=== PATIENT | female | born 1960 | race Caucasian/White ===

== ENCOUNTER 2018-07-20 08:35 | Observation (INO) ==
[2018-07-20] MEDS ORDERED: 0.9 % Sodium Chloride 1,000 ML IVC ONE ×2 (09:22→10:54)
[2018-07-20] MEDS ORDERED: Ondansetron 4 MG/2 ML VIAL IVP ONE ×2 (09:26→10:59)
--- NOTE | 2018-07-20 09:29 | Emergency Department Note ---
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 She recently started a round of chemoteraphy last wednesday receiving therapy M-F every morning. This wednesday started having N/V and abdominal pain. Has not been able to keep down oral solids or liquids. Vomittus is clear yelllow to biliious. Patient states she has been stoolling every morning and is on a stool softener, however she feels bloated with abdominal pain in the RLQ and LLQ. Pain is a 7/10 with palpation, 3/10 at baseline. She spoke to her oncologist on wednesday and they recommended if symptoms worsen she should go to ED. - Related Data Home Medications Medication Instructions Recorded Confirmed Gabapentin [Neurontin] 300 mg PO TID 06/14/18 07/14/18 Nabumetone [Relafen] 500 mg PO DAILY 06/14/18 07/14/18 Omeprazole [PriLOSEC] 20 mg PO DAILY 06/14/18 07/14/18 Tizanidine HCl [Zanaflex] 4 mg PO HS 06/14/18 07/14/18 Capecitabine [Xeloda] 1,500 mg PO BID 07/06/18 07/14/18 Celecoxib [Celebrex] 100 mg PO QDPC 07/06/18 07/14/18 Ergocalciferol (VITAMIN D2) 50,000 unit PO ARAUZ 07/06/18 07/14/18 [Vitamin D2] Previous Rx's Medication Instructions Recorded HYDROcodone/Acet 5/325 mg [[place] 1 - 2 tab PO Q6H PRN 14 Days #120 06/14/18 5-325 mg] tab Promethazine [Phenergan] 25 mg PO Q6HR PRN #30 tablet 06/14/18 Allergies Allergy/AdvReac Type Severity Reaction Status Date / Time No Known Allergies Allergy Verified 07/20/18 08:39 Constitutional: Reports: chills. Denies: fever, weakness, night sweats Cardiovascular: Denies: chest pain, palpitations, dyspnea on exertion Respiratory: Denies: cough, dyspnea Gastrointestinal: Reports: abdominal pain. Denies: nausea, vomiting, diarrhea Genitourinary: Denies: urgency, dysuria, frequency Neurological: Denies: headache, weakness Past Medical History - Past Medical History Medical history: Reports: arthritis, cancer, GERD Surgical history: Reports: , cholecystectomy Psychiatric history: Reports: no psych history - Social History Smoking Status: Never smoker Smokeless Tobacco Status: No Alcohol use: Reports: none Drug use: Reports: none Physical Exam - General Limitations: no limitations General appearance: alert, in no apparent distress - Head Head exam: atraumatic, normocephalic - Chest Chest inspection: Present: normal inspection, symmetric chest wall rise - Respiratory Respiratory exam: Present: normal lung sounds bilaterally, respiratory distress - Cardiovascular Cardiovascular exam: Present: regular rate, normal rhythm, normal heart sounds - Abdominal Exam Abdominal exam: Present: tenderness, distention, normal bowel sounds. Absent: guarding, rebound, rigidity Abdominal tenderness: Present: RLQ, LUQ, mild, moderate (7/10 with palpation 3/ 10 at baseline) - Neurological Exam Neurological exam: Present: alert, oriented X3 - Psychiatric Psychiatric exam: Present: normal affect, normal mood Course Course Narrative: 57 YO F presenting with N/V and dehydration since Wednesday. - Zofrran given for nausea - Concerned for partial SBO given bloating + rectal CA history - ordered CT AB with IV contrast. Patient states she cannot tolerate PO contrast. - Basic labs ordered: CBC, CMP, - Reevaluation(s) Reevaluation #1: Abdominal CT with IV contrast neg for SBO. Spoke with patient and she is still nauseaus. She would like to be admitted for care of her dehydration and N/V. Will speak with oncologist to see what they recommend. - Gave patient another 4mg of zofran. Reevaluation #2: Spoke with oncology and they have no further recs. They are okay to follow her inpatient. Spoke with hospitalist and she will be admitted with dehydration and intractable N/V. Vital Signs Temperature 98.0 F 07/20/18 08:36 Pulse Rate 94 07/20/18 08:36 Respiratory Rate 18 07/20/18 08:36 Blood Pressure 143/92 07/20/18 08:36 O2 Sat by Pulse Oximetry 100 07/20/18 08:36 Temperature 98.0 F 07/20/18 08:44 Pulse Rate 82 07/20/18 11:11 Respiratory Rate 16 07/20/18 11:11 Blood Pressure 138/74 07/20/18 11:11 O2 Sat by Pulse Oximetry 100 07/20/18 11:11 Oxygen Delivery Oxygen Delivery Room Air Nausea/Vomiting/Diarrhea - Lab Data Result diagrams: 07/20/18 08:49 07/20/18 08:49 Lab Results 07/20/18 07/20/18 Range/Units 08:49 08:49 WBC 6.9 (4.3-11.1) K/mcL RBC 5.03 H (3.82-4.97) M/mcL Hgb 12.7 (11.5-15.4) g/dL Hct 39.1 (35.3-44.9) % MCV 77.7 L (83.0-100.0) fL MCH 25.2 L (28.0-33.3) pg MCHC 32.5 (31.6-35.5) g/dL RDW 18.2 H (11.5-14.5) % Plt Count 274 (140-400) K/mcL MPV 9.6 (9.4-12.4) fL Immature Gran % 0.4 (0-4) % Seg Neutrophils % 87.3 % Lymphocytes % 2.6 % Monocytes % 8.4 % Eosinophils % 1.2 % Basophils % 0.1 % Neutrophils # 6.0 (1.6-8.9) K/mcL Lymphocytes # 0.2 L (0.6-4.6) K/mcL Monocytes # 0.6 (0.0-1.3) K/mcL Eosinophils # 0.1 (0.0-0.6) K/mcL Basophils # 0.0 (0.0-0.2) K/mcL Platelet Estimate Normal (Normal) Sodium 135 L (136-145) mEq/L Potassium 3.2 L (3.5-5.1) mEq/L Chloride 97 L (98-107) mEq/L Carbon Dioxide 28 (23-29) mEq/L BUN 8 (6-20) mg/dL Creatinine 0.51 L (0.60-1.20) mg/dL Est GFR ( Amer) > 60 (> 60) Est GFR (Non-Af Amer) > 60 (> 60) BUN/Creatinine Ratio 16 (6-26) Glucose 123 H (70-105) mg/dL Calculated Osmolality 280 (280-300) Calcium 9.5 (8.6-10.3) mg/dL Total Bilirubin 0.7 (0.3-1.0) mg/dL AST 13 (13-39) Units/L ALT 9 (7-52) Units/L Alkaline Phosphatase 95 (34-104) Units/L Troponin I < 0.03 (< 0.04) ng/mL Serum Total Protein 7.3 (6.4-8.9) g/dL Albumin 4.1 (3.5-5.7) g/dL Globulin 3.2 (2.4-3.5) g/dL Albumin/Globulin Ratio 1.3 (1.1-2.2) Lipase 9 L (11-82) Units/L
[2018-07-20 09:42] LABS: Basophils % 0.1 %; Eosinophils # 0.1 K/mcL (0.0-0.6); Eosinophils % 1.2 %; Hematocrit 39.1 % (35.3-44.9); Hemoglobin 12.7 g/dL (11.5-15.4); Immature Granulocytes % 0.4 % (0-4); Lymphocytes # 0.2 K/mcL (0.6-4.6); Lymphocytes % 2.6 %; Mean Corpuscular HGB Conc 32.5 g/dL (31.6-35.5); Mean Corpuscular Hemoglobin 25.2 pg (28.0-33.3); Mean Corpuscular Volume 77.7 fL (83.0-100.0); Mean Platelet Volume 9.6 fL (9.4-12.4); Monocytes # 0.6 K/mcL (0.0-1.3); Monocytes % 8.4 %; Platelet Count 274 K/mcL (140-400); Red Blood Count 5.03 M/mcL (3.82-4.97); Red Cell Distribution Width 18.2 % (11.5-14.5); Segmented Neutrophils % 87.3 %
[2018-07-20] MEDS ORDERED: Isovue-370 500 ML INFUS..BTL IV ONE ×2 (09:45→09:52)
[2018-07-20 09:46] LABS: Troponin I < 0.03 ng/mL (< 0.04)
[2018-07-20 09:47] LABS: Alanine Aminotransferase 9 Units/L (7-52); Albumin 4.1 g/dL (3.5-5.7); Albumin/Globulin Ratio 1.3 (1.1-2.2); Alkaline Phosphatase 95 Units/L (34-104); Aspartate Amino Transferase 13 Units/L (13-39); BUN/Creatinine Ratio 16 (6-26); Bilirubin,Total 0.7 mg/dL (0.3-1.0); Blood Urea Nitrogen 8 mg/dL (6-20); Calcium 9.5 mg/dL (8.6-10.3); Carbon Dioxide 28 mEq/L (23-29); Chloride 97 mEq/L (98-107); Globulin 3.2 g/dL (2.4-3.5); Glucose 123 mg/dL (70-105); Osmolality,Calculated 280 (280-300); Potassium 3.2 mEq/L (3.5-5.1); Sodium 135 mEq/L (136-145); Total Protein 7.3 g/dL (6.4-8.9); eGFR For Non-African Americans > 60 (> 60)
[2018-07-20 10:06] LABS: Platelet Estimate Normal (Normal)
--- NOTE | 2018-07-20 10:09 | Emergency Department Note ---
Disposition Clinical Impression: Rectal cancer, Dehydration, Nausea alone, Drug-induced nausea and vomiting, Intractable nausea and vomiting Disposition: Still a Patient Condition: Fair General Adult HPI - General Chief complaint: ED Nausea/Vomiting/Diarrhea Stated complaint: Dehydrated Time Seen by Provider: 07/20/18 08:41 Source: patient Limitations: no limitations Nursing Notes Reviewed: Yes Vital Signs Reviewed: Yes - History of Present Illness Pain Scale: 3 - Related Data Home Medications Medication Instructions Recorded Confirmed Gabapentin [Neurontin] 300 mg PO TID 06/14/18 07/20/18 Nabumetone [Relafen] 500 mg PO DAILY 06/14/18 07/20/18 Omeprazole [PriLOSEC] 20 mg PO DAILY 06/14/18 07/20/18 Tizanidine HCl [Zanaflex] 4 mg PO HS 06/14/18 07/20/18 Capecitabine [Xeloda] 1,500 mg PO BID 07/06/18 07/20/18 Celecoxib [Celebrex] 100 mg PO DAILY 07/06/18 07/20/18 Ergocalciferol (VITAMIN D2) 50,000 unit PO ARAUZ 07/06/18 07/20/18 [Vitamin D2] Previous Rx's Medication Instructions Recorded HYDROcodone/Acet 5/325 mg [[employer] 1 - 2 tab PO Q6H PRN 14 Days #120 06/14/18 5-325 mg] tab Promethazine [Phenergan] 25 mg PO Q6HR PRN #30 tablet 06/14/18 Allergies Allergy/AdvReac Type Severity Reaction Status Date / Time No Known Allergies Allergy Verified 07/20/18 12:58 Constitutional: Reports: chills. Denies: fever, weakness, night sweats Cardiovascular: Denies: chest pain, palpitations, dyspnea on exertion Respiratory: Denies: cough, dyspnea Gastrointestinal: Reports: abdominal pain. Denies: nausea, vomiting, diarrhea Genitourinary: Denies: urgency, dysuria, frequency Neurological: Denies: headache, weakness Past Medical History - Past Medical History Medical history: Reports: arthritis, cancer, GERD Surgical history: Reports: , cholecystectomy Psychiatric history: Reports: no psych history - Social History Smoking Status: Never smoker Smokeless Tobacco Status: No Alcohol use: Reports: none Drug use: Reports: none Physical Exam - General Limitations: no limitations General appearance: alert, in no apparent distress Course Vital Signs Temperature 98.0 F 07/20/18 08:36 Pulse Rate 94 07/20/18 08:36 Respiratory Rate 18 07/20/18 08:36 Blood Pressure 143/92 07/20/18 08:36 O2 Sat by Pulse Oximetry 100 07/20/18 08:36 Temperature 98.0 F 07/20/18 08:44 Pulse Rate 82 07/20/18 11:11 Respiratory Rate 16 07/20/18 11:11 Blood Pressure 138/74 07/20/18 11:11 O2 Sat by Pulse Oximetry 100 07/20/18 11:11 Oxygen Delivery Oxygen Delivery Room Air Medical Decision Making - MDM Narrative Medical decision making narrative: 0853 hours: Patient in EKG performed which shows a sinus rhythm rate is 86 QRS is 97 QTc is 444 no signs of ischemi;we will compare this with an old EKG Abdomen/Pelvis CT 07/20/18 09:52 IMPRESSION: No bowel obstruction. No significant interval change. Known colorectal malignancy with surrounding abnormal nodules. Stable pulmonary metastases. D/ / 07/20/2018 10:42:03 Dorian Salgado MD / [email or web address] Interpreting Provider: Dorian Salgado MD 1110 hrs.: Reviewed labs and CT with patient. She still not feeling well has intractable nausea is dehydrated. We will speak with oncology and most likely admit her hospitals with him consulting. She is due for her chemotherapy and radiation today. So discussed with oncology how that would have proceeded with that. Patient's agreement with plan. Impression is dehydration, intractable nausea, colon cancer with metastatic disease. Chronic 1130 hrs.: Hospitalist accepted for admission. Oncology is consult. - Lab Data Result diagrams: 07/20/18 08:49 07/20/18 08:49 Lab Results 07/20/18 07/20/18 07/20/18 Range/Units 08:49 08:49 11:48 WBC 6.9 (4.3-11.1) K/mcL RBC 5.03 H (3.82-4.97) M/mcL Hgb 12.7 (11.5-15.4) g/dL Hct 39.1 (35.3-44.9) % MCV 77.7 L (83.0-100.0) fL MCH 25.2 L (28.0-33.3) pg MCHC 32.5 (31.6-35.5) g/dL RDW 18.2 H (11.5-14.5) % Plt Count 274 (140-400) K/mcL MPV 9.6 (9.4-12.4) fL Immature Gran % 0.4 (0-4) % Seg Neutrophils % 87.3 % Lymphocytes % 2.6 % Monocytes % 8.4 % Eosinophils % 1.2 % Basophils % 0.1 % Neutrophils # 6.0 (1.6-8.9) K/mcL Lymphocytes # 0.2 L (0.6-4.6) K/mcL Monocytes # 0.6 (0.0-1.3) K/mcL Eosinophils # 0.1 (0.0-0.6) K/mcL Basophils # 0.0 (0.0-0.2) K/mcL Platelet Estimate Normal (Normal) Sodium 135 L (136-145) mEq/L Potassium 3.2 L (3.5-5.1) mEq/L Chloride 97 L (98-107) mEq/L Carbon Dioxide 28 (23-29) mEq/L BUN 8 (6-20) mg/dL Creatinine 0.51 L (0.60-1.20) mg/dL Est GFR ( Amer) > 60 (> 60) Est GFR (Non-Af Amer) > 60 (> 60) BUN/Creatinine Ratio 16 (6-26) Glucose 123 H (70-105) mg/dL Calculated Osmolality 280 (280-300) Calcium 9.5 (8.6-10.3) mg/dL Total Bilirubin 0.7 (0.3-1.0) mg/dL AST 13 (13-39) Units/L ALT 9 (7-52) Units/L Alkaline Phosphatase 95 (34-104) Units/L Troponin I < 0.03 (< 0.04) ng/mL Serum Total Protein 7.3 (6.4-8.9) g/dL Albumin 4.1 (3.5-5.7) g/dL Globulin 3.2 (2.4-3.5) g/dL Albumin/Globulin Ratio 1.3 (1.1-2.2) Lipase 9 L (11-82) Units/L Urine Color Yellow (Yellow) Urine Clarity Clear (Clear) Urine pH 7.0 (5.0-8.0) pH Units Ur Specific Damon > 1.030 H (1.010-1.025) Urine Protein Negative (Neg-Trace) mg/dL Urine Glucose (UA) Normal (Normal) mg/dL Urine Ketones 40 H (Negative) mg/dL Urine Blood Negative (Negative) Urine Nitrite Negative (Negative) Urine Bilirubin Negative (Negative) Urine Urobilinogen 4.0 H (Normal) mg/dL Ur Leukocyte Esterase Negative (Negative) Ur Culture Indicated? NO (NO) Attestation Statement - Attestation Attestation: This documentation is done with the assistance of Dragon dictation. Despite efforts made to ensure accuracy, there may be inaccuracies in pipe welder or spelling and typographical errors. I examined this patient and my medical decision-making was reviewed with the Resident Physician. I agree with the documented findings, disposition and treatment plan as described except to the extent set forth below. Patient seen and evaluated today by Dr. Armstrong myself, I agree with his evaluation management plan, supervise care the patient's stay. Patient comes in today with potential dehydration. She has rectal cancer with metastatic disease. She follows with Dr. Villegas here. Skiing radiation treatment also. Having some pressure in her lower abdomen with nausea. Unable to keep anything down today. She has a nonsurgical abdomen here no rashes. No chest pain. Regular medical workup try to make her more comfortable she does want anything for pain. CT her abdomen and pelvis and then speak with oncology. She is in agreement with this plan.
[2018-07-20 10:52] LABS: Lipase 9 Units/L (11-82)
[2018-07-20 12:00] LABS: Bilirubin,Urine Negative (Negative); Blood,Urine Negative (Negative); Clarity,Urine Clear (Clear); Color,Urine Yellow (Yellow); Glucose,Urine (UA) Normal (Normal); Ketones,Urine 40 mg/dL (Negative); Leukocyte Esterase,Urine Negative (Negative); Nitrite,Urine Negative (Negative); Protein,Urine Negative (Neg-Trace); Specific Gravity,Urine > 1.030 (1.010-1.025)
[2018-07-20] MEDS ORDERED: Naloxone 0.4 MG/ML INJ IVP PRN (12:47)
[2018-07-20] MEDS ORDERED: Ondansetron 4 MG/2 ML VIAL IVP PRN (12:49)
[2018-07-20] MEDS ORDERED: Potassium Chloride Elixir 20 MEQ/15 ML UDC PO SCH (13:00)
[2018-07-20] MEDS ORDERED: Metoclopramide 10 MG/2 ML VIAL IVP PRN (13:02)
[2018-07-20] MEDS ORDERED: tiZANidine 4 MG TABLET PO ONE (13:23)
--- NOTE | 2018-07-20 13:29 | Electrocardiograph Report ---
[place] [employer] [facility] Test Date: 2018-07-20 Pat Name: Kim Gupta Department: [id number] Room: 3A41 Gender: F Drafter Structural: : 1960 Requested By: Néstor Louise Order Number: [id number] Reading MD: Florentino Schaffer Measurements Intervals [place] Rate: 86 P: 85 WI: 121 QRS: 51 QRSD: 97 T: 25 QT: 371 QTc: 444 Interpretive Statements Sinus rhythm Electronically Signed On 07-20-2018 13:27:50 EDT by Florentino Schaffer
--- NOTE | 2018-07-20 13:32 | Internal Med History&Physical ---
Date of Encounter: 07/20/18 Time of Encounter: 13:00 Internal Medicine - H&P: HPI Chief complaint: Nausea and vomiting on chemotherapy History of present illness: Ms. Gupta is a 57 year old female with pmh of metastatic rectal adenocarcinoma on chemotherapy and radiation, currently on xeloda (capecitabine ) since 07/07 presenting with complaints of progressive nausea, weakness, dehydration and vomiting since wednesday. Patient notes she has had worsening nausea since starting to take xeloda but began to feel progressively sicker since wednesday. she has had multiple episodes of nausea and vomiting and generalized abdominal pain. She admits to occasional chills. Denies any diarrhea. Denies any other acute symptoms. In the past 24hrs, she has had increasingly frequent episodes of vomiting. Last radiation was yesterday. She was supposed to have radiation today but came to the ER because she was feeling pretty sick In the ER, she was given zofran Iv fluids and had a CT abdomen done. She is being admitted for further management Past Med Surg Social Fam HX - Past Medical History Medical history: arthritis, cancer, GERD Additional medical history: multiple sclerosis Psychiatric history: no psych history - Past Surgical History Surgical History: , cholecystectomy Additional surgical history: Left Foot - Social History Smoking Status: Never smoker Smokeless Tobacco Status: No Alcohol use: none Drug use: none Internal Medicine - H&P: Meds Gabapentin [Neurontin] 300 mg PO TID 06/14/18 [History] HYDROcodone/Acet 5/325 mg [[place] 5-325 mg] 1 - 2 tab PO Q6H PRN 14 Days #120 tab 06/14/18 [Rx] Nabumetone [Relafen] 500 mg PO DAILY 06/14/18 [History] Omeprazole [PriLOSEC] 20 mg PO DAILY 06/14/18 [History] Promethazine [Phenergan] 25 mg PO Q6HR PRN #30 tablet 06/14/18 [Rx] Tizanidine HCl [Zanaflex] 4 mg PO HS 06/14/18 [History] Capecitabine [Xeloda] 1,500 mg PO BID 07/06/18 [History] Celecoxib [Celebrex] 100 mg PO DAILY 07/06/18 [History] Ergocalciferol (VITAMIN D2) [Vitamin D2] 50,000 unit PO ARAUZ 07/06/18 [History] 3 Allergy/AdvReac Type Severity Reaction Status Date / Time No Known Allergies Allergy Verified 07/20/18 12:58 All Systems PM: A 10-system review of systems was performed and is negative for pertinent findings except as documented above in the HPI. - Constitutional Constitutional: weakness, no chills, no fever(s), no night sweats - EENT Eyes: no change in vision, no discharge, no pain, no photophobia Ears: no ear discharge, no ear pain, no tinnitus Nose, mouth and throat: no dysphagia, no nasal discharge, no neck pain, no sore throat - Cardiovascular Cardiovascular ROS IM: no chest pain, no diaphoresis, no dyspnea, no lightheadedness, no palpitations, no syncope - Respiratory Respiratory: no cough, no dyspnea, no wheezing, no excessive phlegm production - Gastrointestinal Gastrointestinal: abdominal pain, nausea, vomiting, no diarrhea, no hematemesis , no hematochezia, no melena - Genitourinary Genitourinary: no change in urinary stream, no dysuria, no flank pain, no hematuria - Musculoskeletal Musculoskeletal ROS IM: no numbness, no tingling - Integumentary Integumentary IM: no rash, no unusual bruising - Neurological Neurological ROS: no confusion, no convulsions, no focal weakness, no numbness, no tingling, no tremor(s) - Hematologic/Lymphatic Hematologic/Lymphatic: no easy bruising - Constitutional Vitals: Temp Pulse Resp BP Pulse Ox 98.0 F 82 16 138/74 100 07/20/18 08:44 07/20/18 11:11 07/20/18 11:11 07/20/18 11:11 07/20/18 11:11 Exam: weak, pale, NAD - Head Head exam: Present: atraumatic, normocephalic - Eye Eye exam: Present: PERRL, conjuntiva pink, sclera anicteric Pupils: Present: PERRL - Neck Neck exam general surgery: Present: supple, trachea midline. Absent: lymphadenopathy - Respiratory Respiratory exam: Present: CTAB. Absent: accessory muscle use, rales, rhonchi, wheezes - Cardiovascular Cardiovascular exam: Present: RRR, +S1, +S2. Absent: diastolic murmur, gallop, rubs, systolic murmur - GI/Abdominal GI/Abdominal exam: Present: normal bowel sounds, soft, tenderness, no peritoneal signs. Absent: distended - Extremities Exam Extremities exam: Present: warm, radial pulses palpable and symmetrical. Absent : calf tenderness, cyanotic, pedal edema - Neurological Exam Neurological exam: Present: CN II-XII intact, oriented X3, no focal deficits. Absent: pronater drift, facial droop, speech deficit - Skin Skin exam: Present: dry, intact Internal Med - H&P Results - Labs CBC & Chem 7: 07/20/18 08:49 07/20/18 08:49 - Assessment and plan (1) Chemotherapy induced nausea and vomiting Current Visit: Yes Status: Acute Assessment and plan: Began feeling progressively more nauseos since starting to take xeloda Will start on clear liquids, advance as tolerated. Zofran and reglan as needed for intractable nausea and vomiting CT abdomen negative for any acute pathology (2) Dehydration Current Visit: Yes Status: Acute Assessment and plan: Will give IV fluids with normal saline (3) Rectal cancer Current Visit: Yes Status: Acute Assessment and plan: Continue chemotherapy and radiation. Oncology consulted (4) GERD (gastroesophageal reflux disease) Current Visit: Yes Status: Acute Assessment and plan: Continue omeprazole Qualifiers: Qualified Code(s): K21.9 - Gastro-esophageal reflux disease without esophagitis (5) DVT prophylaxis Current Visit: Yes Status: Acute Assessment and plan: Heparin sc - Time Spent With Patient Total time spent is greater than 50% in coordination of care (as documented) at patient's floor/unit and/or counseling patient:
[2018-07-20] MEDS: 0.9 % Sodium Chloride 1,000 ML IVC SCH (14:18)
[2018-07-20] MEDS: Gabapentin 300 MG CAPSULE PO SCH ×2 (15:47→19:57)
[2018-07-20] MEDS ORDERED: Potassium Chloride 40 MEQ, Lidocaine 1% 2 ML in D5% in Water 500 ML IVPB ONE (16:18)
--- NOTE | 2018-07-20 17:39 | Oncology Inp Consult Note ---
<Mya Parra - Last Filed: 07/21/18 12:45> Date of Encounter: 07/20/18 Time of Encounter: 16:00 Assessment and Plan (1) Dehydration Status: Acute Assessment and plan: IVF Advance diet as tolerated Supportive treatment to treat nausea/vomiting (2) Intractable nausea and vomiting Status: Acute Assessment and plan: CT of the abdomen and pelvis in ER which revealed no bowel obstruction, no significant interval change, known colorectal malignancy with surrounding abnormal nodules and stable pulmonary metastases. Patient has noticed as increase in nausea and vomiting since beginning treatment with Xeloda Plan: Continue with supportive treatment with Zofran and Reglan which appear to be offering some relief at this time. 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 Patient also has a history which includes multiple sclerosis, previously on Tecfidera. She has been found to have multiple noncalcified pulmonary nodules biopsy proven metastatic disease. Her treatment intent is palliative. She presented to [facility] ER for nausea and vomiting that has been worsening since Wednesday. She has taken phenergen for her symptoms but unable to keep the pills down at times. She has had very little oral intake and has become increasingly weak. She vomited multiple times yesterday and throughout the night with any intake. She had a CT of the abdomen and pelvis in ER which revealed no bowel obstruction , no significant interval change, known colorectal malignancy with surrounding abnormal nodules and stable pulmonary metastases. Past Med Surg Social Fam HX - Past Medical History Medical history: arthritis, cancer, GERD Additional medical history: multiple sclerosis Psychiatric history: no psych history - Past Surgical History Surgical History: , cholecystectomy Additional surgical history: Left Foot - Social History Smoking Status: Never smoker Smokeless Tobacco Status: No Alcohol use: none Drug use: none Medications and Allergies Gabapentin [Neurontin] 300 mg PO TID 06/14/18 [History] HYDROcodone/Acet 5/325 mg [[place] 5-325 mg] 1 - 2 tab PO Q6H PRN 14 Days #120 tab 06/14/18 [Rx] Nabumetone [Relafen] 500 mg PO DAILY 06/14/18 [History] Omeprazole [PriLOSEC] 20 mg PO DAILY 06/14/18 [History] Promethazine [Phenergan] 25 mg PO Q6HR PRN #30 tablet 06/14/18 [Rx] Tizanidine HCl [Zanaflex] 4 mg PO HS 06/14/18 [History] Capecitabine [Xeloda] 1,500 mg PO BID 07/06/18 [History] Celecoxib [Celebrex] 100 mg PO DAILY 07/06/18 [History] Ergocalciferol (VITAMIN D2) [Vitamin D2] 50,000 unit PO ARAUZ 07/06/18 [History] 3 Allergy/AdvReac Type Severity Reaction Status Date / Time No Known Allergies Allergy Verified 07/20/18 12:58 Constitutional: Present: anorexia, fatigue, malaise, weakness, weight loss. Absent: chills, fever(s), frequent falls, headache(s) Eyes: Absent: change in vision Nose, mouth and throat: Absent: dysphagia, odynophagia Cardiovascular: Absent: chest pain, dyspnea Respiratory: Absent: cough, dyspnea, hemoptysis Gastrointestinal: Present: as per HPI, heartburn, nausea, tenesmus, vomiting. Absent: constipation, diarrhea, dysphagia, hematemesis, hematochezia, melena, odynophagia Genitourinary: Absent: dysuria, hematuria Musculoskeletal: Present: muscle weakness Integumentary: Absent: rash, wounds Additional comments: denies skin changes or pain to palms of hands/soles of feet Neurological: Absent: focal weakness, frequent falls Psychiatric: Absent: depression Hematologic/Lymphatic: Present: as per HPI Oncology - Exam - Constitutional Vitals: Temp Pulse Resp BP Pulse Ox 98.0 F 82 16 138/74 100 07/20/18 08:44 07/20/18 11:11 07/20/18 11:11 07/20/18 11:11 07/20/18 11:11 General appearance: cooperative, no acute distress, no febrile - Head Head exam: Present: atraumatic - ENT ENT exam: Present: mucous membranes moist - Respiratory Respiratory exam: Present: CTAB. Absent: respiratory distress - Cardiovascular Cardiovascular exam: Present: RRR, +S1, +S2 - GI/Abdominal GI/Abdominal exam: Present: normal bowel sounds, soft, tenderness. Absent: rebound - Extremities Exam Extremities exam: Present: normal inspection. Absent: calf tenderness Additional comments: chronic left sided weakness - Neurological Exam Neurological exam: Present: alert, oriented X3, no focal deficits, strengths equal and symetr throughout - Psychiatric Psychiatric exam: Present: normal affect, normal mood - Skin Skin exam: Present: dry, intact, normal color, warm Consult Discharge Plan - Plan Referrals: Jacey Ochoa [Primary Care Provider] - 07/27/18 11:00 am <Destinee Castro - Last Filed: 07/25/18 13:18> Date of Encounter: 07/20/18 - Data of Consult Requesting Physician: Aura Fuentes Primary Care Provider: Jacey Ochoa - Consult Narrative History of present illness: Ms. Gupta is a 57 year old female Oncology - Exam - Constitutional Vitals: Temp Pulse Resp BP Pulse Ox 98.2 F 85 16 131/82 96 07/22/18 10:45 07/22/18 10:45 07/22/18 10:45 07/22/18 10:45 07/22/18 10:45 Oncology - Results Labs: 3 07/21/18 07/21/18 05:37 05:37 WBC 4.9 RBC 4.09 Hgb 10.5 L D Hct 33.1 L MCV 80.9 L MCH 25.7 L MCHC 31.7 RDW 18.0 H Plt Count 212 MPV 9.7 Immature Gran % 0.6 Seg Neutrophils % 80.5 Lymphocytes % 4.3 Monocytes % 12.3 Eosinophils % 2.1 Basophils % 0.2 Neutrophils # 3.9 Lymphocytes # 0.2 L Monocytes # 0.6 Eosinophils # 0.1 Basophils # 0.0 Sodium 137 Potassium 3.8 Chloride 107 Carbon Dioxide 22 L BUN 4 L Creatinine 0.34 L Est GFR ( Amer) > 60 Est GFR (Non-Af Amer) > 60 BUN/Creatinine Ratio 12 Glucose 102 Calculated Osmolality 281 Calcium 8.4 L Phosphorus 2.1 L Magnesium 1.7 - Attending Attestation Recently diagnosed metastatic rectal cancer in June 2018. She has metastatic lung nodules Started with concurrent chemoradiation with Xeloda on 07/07/2018 for local control She presented with intractable nausea vomiting. She rapidly improved with conservative management. There is no abdominal symptoms. Chemotherapy radiation was held during hospitalization and should be able to resume around Inpatient Charges Provider: Dr. Jeff Castro Consult Charges: [id number]
[2018-07-20] MEDS: *HR* Heparin 5,000 UNIT/ML VIAL SQ SCH (18:26)
[2018-07-20] MEDS: tiZANidine 4 MG TABLET PO SCH (19:56)
[2018-07-20] MEDS ORDERED: CAPECITABINE 1500 MG PO SCH (21:00)
[2018-07-20] MEDS ORDERED: tiZANidine 4 MG TABLET PO SCH (21:00)
[2018-07-21] MEDS: 0.9 % Sodium Chloride 1,000 ML IVC SCH (02:11)
[2018-07-21] MEDS: *HR* Heparin 5,000 UNIT/ML VIAL SQ SCH ×2 (05:08→18:03)
[2018-07-21 07:03] LABS: BUN/Creatinine Ratio 12 (6-26); Blood Urea Nitrogen 4 mg/dL (6-20); Carbon Dioxide 22 mEq/L (23-29); Chloride 107 mEq/L (98-107); Glucose 102 mg/dL (70-105); Magnesium 1.7 mg/dL (1.6-2.6); Osmolality,Calculated 281 (280-300); Phosphorous 2.1 mg/dL (2.7-4.5); Potassium 3.8 mEq/L (3.5-5.1); Sodium 137 mEq/L (136-145); eGFR For Non-African Americans > 60 (> 60)
[2018-07-21 08:15] LABS: Basophils % 0.2 %; Eosinophils # 0.1 K/mcL (0.0-0.6); Eosinophils % 2.1 %; Hematocrit 33.1 % (35.3-44.9); Immature Granulocytes % 0.6 % (0-4); Lymphocytes # 0.2 K/mcL (0.6-4.6); Lymphocytes % 4.3 %; Mean Corpuscular HGB Conc 31.7 g/dL (31.6-35.5); Mean Corpuscular Hemoglobin 25.7 pg (28.0-33.3); Mean Corpuscular Volume 80.9 fL (83.0-100.0); Mean Platelet Volume 9.7 fL (9.4-12.4); Monocytes # 0.6 K/mcL (0.0-1.3); Monocytes % 12.3 %; Neutrophils # 3.9 K/mcL (1.6-8.9); Platelet Count 212 K/mcL (140-400); Red Blood Count 4.09 M/mcL (3.82-4.97); Segmented Neutrophils % 80.5 %
[2018-07-21 08:23] LABS: Hemoglobin 10.5 g/dL (11.5-15.4)
[2018-07-21 08:25] LABS: Calcium 8.4 mg/dL (8.6-10.3)
[2018-07-21] MEDS: Celecoxib 100 MG CAPSULE PO SCH (08:47)
[2018-07-21] MEDS: Gabapentin 300 MG CAPSULE PO SCH ×3 (08:48→21:28)
--- NOTE | 2018-07-21 14:47 | Internal Med Progress Note ---
Hospitalist Progress Note - Encounter Date of Encounter: 07/21/18 Time of Encounter: 14:40 - Subjective Interval History: Pt states she vomited this morning while taking her pills. She denies abdominal pain or diarrhea. She denies fever or chills. - Exam Vitals: Temp Pulse Resp BP Pulse Ox 98.5 F 83 16 116/68 97 07/21/18 10:32 07/21/18 10:32 07/21/18 10:32 07/21/18 10:32 07/21/18 10:32 Exam: weak, pale, NAD - Assessment and Plan (1) Dehydration Current Visit: Yes Status: Acute Assessment and Plan: Pt was given some fluids. Will consider ordering some more fluids. Slowly advancing diet for now. (2) Chemotherapy induced nausea and vomiting Current Visit: Yes Status: Acute Assessment and Plan: Began feeling progressively more nauseos since starting to take xeloda Will started on clear liquids and advancing as tolerated. Zofran and reglan as needed for intractable nausea and vomiting CT abdomen negative for any acute pathology (3) GERD (gastroesophageal reflux disease) Current Visit: Yes Status: Acute Assessment and Plan: Omeprazole (4) Rectal cancer Current Visit: Yes Status: Acute Assessment and Plan: Oncology on board. On Xeloda but on hold due to acute hospital stay. DVT Prophylaxis: Heparin - Summary of Assessment and Plan Summary of Assessment and Plan: Ms. Gupta is a 57 year old female with pmh of metastatic rectal adenocarcinoma on chemotherapy and radiation, currently on xeloda (capecitabine ) since 07/07 presenting with complaints of progressive nausea, weakness, dehydration and vomiting since Wednesday. Patient notes she has had worsening nausea since starting to take xeloda but began to feel progressively sicker since Wednesday. - Time Spent with Patient Total time spent is greater than 50% in coordination of care (as documented) at patient's floor/unit and/or counseling patient: 25 - 35 minutes Plan of Care Discussed with: patient Internal Medicine: Result - Labs CBC & Chem 7: 07/21/18 05:37 07/21/18 05:37 Labs: Short CBC 07/21/18 Range/Units 05:37 WBC 4.9 (4.3-11.1) K/mcL Hgb 10.5 L D (11.5-15.4) g/dL Hct 33.1 L (35.3-44.9) % Plt Count 212 (140-400) K/mcL Neutrophils # 3.9 (1.6-8.9) K/mcL BMP 07/21/18 05:37 Sodium 137 Potassium 3.8 Chloride 107 Carbon Dioxide 22 L BUN 4 L Creatinine 0.34 L Glucose 102 Calcium 8.4 L - Impressions Impressions Chest X-Ray 07/21/18 09:02 IMPRESSION: Stable chest with bilateral pulmonary nodules. No new acute process. D/ / 07/21/2018 14:25:29 Filemon Stephens MD / es Interpreting Provider: Filemon Stephens MD Consult Discharge Plan - Plan Referrals: Jacey Ochoa [Primary Care Provider] - (3) GERD (gastroesophageal reflux disease) Qualifiers: Qualified Code(s): K21.9 - Gastro-esophageal reflux disease without esophagitis
--- NOTE | 2018-07-21 18:10 | Oncology Inp Progress Note ---
<Mya Parra L - Last Filed: 07/21/18 18:55> Date of Encounter: 07/21/18 Time of Encounter: 16:00 (1) Dehydration Status: Acute Assessment and plan: IVF Advance diet as tolerated-tolerating full liquid diet Supportive treatment to treat nausea/vomiting (2) Intractable nausea and vomiting Status: Acute Assessment and plan: CT of the abdomen and pelvis in ER which revealed no bowel obstruction, no significant interval change, known colorectal malignancy with surrounding abnormal nodules and stable pulmonary metastases. Patient has noticed as increase in nausea and vomiting since beginning treatment with Xeloda Plan: Secondary to Xeloda versus gastroenteritis Continue with supportive treatment with Zofran and Reglan which appear to be offering some relief at this time. 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 Gupta reports that she is feeling stable if not improved today. She currently denies nausea. She vomited once this morning after taking her AM pills. Abdominal cramping has improved. No diarrhea, she had a soft BM this am. TMAX 99.3 over past 24 hours. She has been ambulating in room. - Constitutional Vitals: Vital Signs Temp Pulse Resp BP Pulse Ox 07/21/18 10:32 98.5 F 83 16 116/68 97 07/21/18 03:16 99.3 F 85 17 119/77 94 07/20/18 20:13 98.1 F 77 14 99/64 96 Intake and Output 07/21/18 07/21/18 07/21/18 07:59 15:59 23:59 Intake Total 950 / 950 Output Total 700 / 700 700 / 700 Balance -700 / -700 250 / 250 Intake: IV Fluids 830 / 830 0.9 % Sodium Chloride 1,000 ML 830 / 830 @ 125 mls/hr IVC .Q8H [facility] Rx#: [id number] Oral 120 / 120 Output: Urine 700 / 700 700 / 700 Other: Meal Lunch Percent of Meal Consumed 25% Weight 85 kg Patient Weight 07/21/18 23:59 Weight 85 kg General appearance: cooperative, no acute distress, no febrile - Head Head exam: Present: atraumatic - ENT ENT exam: Present: mucous membranes moist - Respiratory Respiratory exam: Present: CTAB. Absent: respiratory distress - Cardiovascular Cardiovascular exam: Present: RRR, +S1, +S2 - GI/Abdominal GI/Abdominal exam: Present: normal bowel sounds, soft. Absent: guarding, rebound, tenderness - Extremities Exam Extremities exam: Absent: calf tenderness Additional comments: chronic left sided weakness - Neurological Exam Neurological exam: Present: alert, oriented X3, strengths equal and symetr throughout - Psychiatric Psychiatric exam: Present: normal affect, normal mood - Skin Skin exam: Present: dry, intact, normal color, warm Oncology: Obj Data - Labs CBC & Chem 7: 07/21/18 05:37 07/21/18 05:37 Labs: Laboratory Results - last 24 hr 07/21/18 07/21/18 05:37 05:37 WBC 4.9 RBC 4.09 Hgb 10.5 L D Hct 33.1 L MCV 80.9 L MCH 25.7 L MCHC 31.7 RDW 18.0 H Plt Count 212 MPV 9.7 Immature Gran % 0.6 Seg Neutrophils % 80.5 Lymphocytes % 4.3 Monocytes % 12.3 Eosinophils % 2.1 Basophils % 0.2 Neutrophils # 3.9 Lymphocytes # 0.2 L Monocytes # 0.6 Eosinophils # 0.1 Basophils # 0.0 Sodium 137 Potassium 3.8 Chloride 107 Carbon Dioxide 22 L BUN 4 L Creatinine 0.34 L Est GFR ( Amer) > 60 Est GFR (Non-Af Amer) > 60 BUN/Creatinine Ratio 12 Glucose 102 Calculated Osmolality 281 Calcium 8.4 L Phosphorus 2.1 L Magnesium 1.7 - Impressions Impressions Chest X-Ray 07/21/18 09:02 IMPRESSION: Stable chest with bilateral pulmonary nodules. No new acute process. D/ / 07/21/2018 14:25:29 Filemon Stephens MD / es Interpreting Provider: Filemon Stephens MD Consult Discharge Plan - Plan Referrals: Jacey Ochoa [Primary Care Provider] - 07/27/18 11:00 am Inpatient Charges Provider: Dr. Jeff Castro <[email or web address] - Last Filed: 07/25/18 19:35> Date of Encounter: 07/21/18 Oncology: Obj Data - Labs CBC & Chem 7: 07/21/18 05:37 07/21/18 05:37 Inpatient Charges Provider: Dr. Jeff Castro Follow Up: [id number] - Attending Attestation I examined this patient and my medical decision-making was reviewed with the Advanced Practice Nurse. I agree with the documented findings, disposition and treatment plan as described except to the extent set forth below. 1. Newly diagnosed rectal cancer undergoing chemoradiation with single agent Xeloda. Treatment on hold since admission both chemotherapy and radiation 2. Acute gastritis symptoms with nausea vomiting improved with conservative management. She should be able to resume treatment on 07/25/2018
[2018-07-21] MEDS: tiZANidine 4 MG TABLET PO SCH (21:28)
[2018-07-22] MEDS: *HR* Heparin 5,000 UNIT/ML VIAL SQ SCH (05:18)
[2018-07-22] MEDS: Celecoxib 100 MG CAPSULE PO SCH (09:01)
[2018-07-22] MEDS: Gabapentin 300 MG CAPSULE PO SCH ×2 (09:02→15:28)
[2018-07-22 10:47] VITALS: BP 131/82
--- NOTE | 2018-07-22 14:12 | Discharge Summary ---
- NOTES TO OUTPATIENT PROVIDER Notes to Outpatient Provider: PCP in 5 to 7 days Date of Encounter: 07/22/18 Time of Encounter: 14:10 - Discharge Diagnosis (1) Dehydration Priority: Primary Status: Acute Assessment and Plan: Corrected (2) Chemotherapy induced nausea and vomiting Priority: Secondary Status: Acute Assessment and Plan: follow up with oncology out pt as scheduled. (3) GERD (gastroesophageal reflux disease) Priority: Secondary Status: Acute Assessment and Plan: Prilosec Qualifiers: Qualified Code(s): K21.9 - Gastro-esophageal reflux disease without esophagitis (4) Rectal cancer Priority: Secondary Status: Acute Assessment and Plan: oncology out pt as scheduled Hospital course: Ms. Gupta is a 57 year old female with past medical history of metastatic rectal adenocarcinoma on chemotherapy and radiation, currently on xeloda ( capecitabine) since 07/07 presenting with complaints of progressive nausea, weakness, dehydration and vomiting since Wednesday. Patient notes she has had worsening nausea since starting to take xeloda but began to feel progressively sicker since Wednesday. Pt states she is feeling much better today. She was seen by oncology on this admission and is to follow up out pt as scheduled. Pt's diet advanced and tolerated. Discharge discussed with: patient - Time Spent with Patient Total time spent providing and/or coordinating discharge services: Greater than 30 minutes - Discharge Medications Home Medications: Gabapentin [Neurontin] 300 mg PO TID 06/14/18 [History] HYDROcodone/Acet 5/325 mg [[place] 5-325 mg] 1 - 2 tab PO Q6H PRN 14 Days #120 tab 06/14/18 [Rx] Nabumetone [Relafen] 500 mg PO DAILY 06/14/18 [History] Omeprazole [PriLOSEC] 20 mg PO DAILY 06/14/18 [History] Promethazine [Phenergan] 25 mg PO Q6HR PRN #30 tablet 06/14/18 [Rx] Tizanidine HCl [Zanaflex] 4 mg PO HS 06/14/18 [History] Capecitabine [Xeloda] 1,500 mg PO BID 07/06/18 [History] Celecoxib [Celebrex] 100 mg PO DAILY 07/06/18 [History] Ergocalciferol (VITAMIN D2) [Vitamin D2] 50,000 unit PO ARAUZ 07/06/18 [History] Allergies/Adverse Reactions: 3 Allergy/AdvReac Type Severity Reaction Status Date / Time No Known Allergies Allergy Verified 07/20/18 12:58 Date of admission: 07/20/18 12:34 Primary care physician: Jacey Ochoa Consults: 07/20/18 15:57 Consult to Nutrition [CONS] Routine Comment: Consulting Provider: NUTRITION Reason for Dietary Consult: PO Supplementation Discharging clinician: Stefany Dominguez Anticipated date of discharge: 07/22/18 - Constitutional Vitals: Temp Pulse Resp BP Pulse Ox 98.2 F 85 16 131/82 96 07/22/18 10:45 07/22/18 10:45 07/22/18 10:45 07/22/18 10:45 07/22/18 10:45 Exam: Exam: weak, pale, NAD - Head Head exam: Present: atraumatic, normocephalic - Eye Eye exam: Present: PERRL, conjuntiva pink, sclera anicteric Pupils: Present: PERRL - Neck Neck exam general surgery: Present: supple, trachea midline. Absent: lymphadenopathy - Respiratory Respiratory exam: Present: CTAB. Absent: accessory muscle use, rales, rhonchi, wheezes - Cardiovascular Cardiovascular exam: Present: RRR, +S1, +S2. Absent: diastolic murmur, gallop, rubs, systolic murmur - GI/Abdominal GI/Abdominal exam: Present: normal bowel sounds, soft, tenderness, no peritoneal signs. Absent: distended - Extremities Exam Extremities exam: Present: warm, radial pulses palpable and symmetrical. Absent : calf tenderness, cyanotic, pedal edema - Neurological Exam Neurological exam: Present: CN II-XII intact, oriented X3, no focal deficits. Absent: pronater drift, facial droop, speech deficit - Skin Skin exam: Present: dry, intact - Patient Status Disposition: Home, Self-Care Condition: Fair Overall status at discharge: patient is back to baseline - Discharge Instructions Follow Up With: Jacey Ochoa [Primary Care Provider] - 07/27/18 11:00 am - Diet and Activity Activity: increase activity as tolerated Diet: advance to your usual diet
== END 2018-07-22 16:47 | disposition home or self-care (01) ==
LOC: EMEROOARM 08:35 → INTOOBSV 12:34 → SUATTDRO 12:34 → 3NENU 12:34 → 3ANU 13:20
PROVIDERS: ADMIT Internal Medicine; ATTEND Internal Medicine

== ENCOUNTER 2019-04-29 13:09 | Observation (INO) ==
[2019-04-29] MEDS ORDERED: Ondansetron 4 MG/2 ML VIAL IVP ONE (13:33)
[2019-04-29] MEDS ORDERED: 0.9 % Sodium Chloride 1,000 ML IVC ONE (13:33)
[2019-04-29] MEDS ORDERED: Lido/Epi/Tetra Gel 2 ML SYRINGE TP ONE (13:35)
[2019-04-29 14:35] LABS: Basophils % 0.2 %; Eosinophils # 0.1 K/mcL (0.0-0.6); Eosinophils % 1.2 %; Hematocrit 33.8 % (35.3-44.9); Immature Granulocytes % 0.7 % (0-4); Lymphocytes # 0.2 K/mcL (0.6-4.6); Lymphocytes % 3.5 %; Mean Corpuscular HGB Conc 32.5 g/dL (31.6-35.5); Mean Corpuscular Hemoglobin 27.4 pg (28.0-33.3); Mean Corpuscular Volume 84.3 fL (83.0-100.0); Mean Platelet Volume 9.4 fL (9.4-12.4); Monocytes # 0.5 K/mcL (0.0-1.3); Monocytes % 8.4 %; Neutrophils # 4.9 K/mcL (1.6-8.9); Platelet Count 248 K/mcL (140-400); Red Blood Count 4.01 M/mcL (3.82-4.97); White Blood Count 5.7 K/mcL (4.3-11.1)
[2019-04-29 14:52] LABS: Alanine Aminotransferase 10 Units/L (7-52); Albumin 2.9 g/dL (3.5-5.7); Albumin/Globulin Ratio 1.1 (1.1-2.2); Alkaline Phosphatase 106 Units/L (34-104); Aspartate Amino Transferase 9 Units/L (13-39); BUN/Creatinine Ratio 12 (6-26); Bilirubin,Total 0.3 mg/dL (0.3-1.0); Blood Urea Nitrogen 5 mg/dL (6-20); Calcium 7.9 mg/dL (8.6-10.3); Carbon Dioxide 27 mEq/L (23-29); Chloride 99 mEq/L (98-107); Globulin 2.7 g/dL (2.4-3.5); Glucose 100 mg/dL (70-105); Lipase 9 Units/L (11-82); Magnesium 0.9 mg/dL (1.6-2.6); Osmolality,Calculated 281 (280-300); Potassium 2.8 mEq/L (3.5-5.1); Sodium 137 mEq/L (136-145); Total Protein 5.6 g/dL (6.4-8.9); eGFR For African Americans > 60 (> 60); eGFR For Non-African Americans > 60 (> 60)
[2019-04-29] MEDS ORDERED: Magnesium Oxide 400 MG TABLET PO STA (15:11)
[2019-04-29] MEDS ORDERED: Potassium Chloride 40 MEQ, Lidocaine 1% 2 ML in D5% in Water 500 ML IVPB ONE (15:11)
[2019-04-29] MEDS ORDERED: Magic Mouthwash 10 ML UD Cup PO PRN (15:40)
[2019-04-29] MEDS ORDERED: tiZANidine 4 MG TABLET PO PRN (15:40)
[2019-04-29] MEDS ORDERED: [UNRECOGNIZED DRUG - OTHER] MC SCH (15:45)
[2019-04-29] MEDS ORDERED: *HR* Promethazine 25 MG/ML VIAL IVP PRN (15:46)
[2019-04-29] MEDS ORDERED: Naloxone 0.4 MG/ML INJ IVP PRN (15:46)
[2019-04-29 15:53] LABS: Bilirubin,Urine Small (Negative); Blood,Urine Negative (Negative); Clarity,Urine Clear (Clear); Color,Urine Yellow (Yellow); Glucose,Urine (UA) Normal (Normal); Ketones,Urine Negative (Negative); Leukocyte Esterase,Urine Negative (Negative); Nitrite,Urine Negative (Negative); Protein,Urine Trace mg/dL (Neg-Trace); Specific Gravity,Urine 1.008 (1.010-1.025); Urobilinogen,Urine Normal (Normal)
[2019-04-29] MEDS: *HR* HYDROcodone/Acet 5/325 mg TABLET PO PRN (18:52)
[2019-04-29] MEDS: 0.9 % Sodium Chloride 1,000 ML IVC SCH (20:13)
[2019-04-29] MEDS ORDERED: Diphenoxylate/Atropine 1 TAB TABLET PO SCH (21:00)
[2019-04-29] MEDS ORDERED: NON-FORMULARY MEDICATION 1 EACH EACH (Lactose-Reduced Food [Boost] 237 ML) PO SCH (21:00)
[2019-04-29 21:06] LABS: Phosphorous 1.9 mg/dL (2.7-4.5)
[2019-04-29 21:18] LABS: Magnesium 1.7 mg/dL (1.6-2.6); Potassium 3.6 mEq/L (3.5-5.1)
[2019-04-29] MEDS: Gabapentin 300 MG CAPSULE PO SCH (21:33)
[2019-04-29] MEDS: *HR* Dabigatran 150 MG CAPSULE PO SCH (21:33)
[2019-04-29] MEDS: Magnesium Oxide 400 MG TABLET PO SCH (21:33)
[2019-04-30 05:25] LABS: VBG Ionized Calcium 1.07 mmol/L (1.15-1.35)
[2019-04-30 05:25] LABS: Hematocrit 30.6 % (35.3-44.9); Hemoglobin 9.8 g/dL (11.5-15.4); Mean Corpuscular Hemoglobin 27.5 pg (28.0-33.3); Mean Platelet Volume 9.5 fL (9.4-12.4); Platelet Count 241 K/mcL (140-400); Red Blood Count 3.56 M/mcL (3.82-4.97); Red Cell Distribution Width 17.2 % (11.5-14.5); White Blood Count 4.6 K/mcL (4.3-11.1)
[2019-04-30 05:44] LABS: Magnesium 1.5 mg/dL (1.6-2.6); Phosphorous 4.4 mg/dL (2.7-4.5)
[2019-04-30 05:45] LABS: Alanine Aminotransferase 7 Units/L (7-52); Albumin 2.6 g/dL (3.5-5.7); Albumin/Globulin Ratio 1.2 (1.1-2.2); Alkaline Phosphatase 100 Units/L (34-104); Aspartate Amino Transferase 9 Units/L (13-39); BUN/Creatinine Ratio 9 (6-26); Bilirubin,Total 0.3 mg/dL (0.3-1.0); Blood Urea Nitrogen 3 mg/dL (6-20); Calcium 7.4 mg/dL (8.6-10.3); Carbon Dioxide 25 mEq/L (23-29); Chloride 104 mEq/L (98-107); Globulin 2.1 g/dL (2.4-3.5); Glucose 102 mg/dL (70-105); Osmolality,Calculated 285 (280-300); Potassium 3.4 mEq/L (3.5-5.1); Sodium 139 mEq/L (136-145); Total Protein 4.7 g/dL (6.4-8.9); eGFR For African Americans > 60 (> 60); eGFR For Non-African Americans > 60 (> 60)
[2019-04-30] MEDS: 0.9 % Sodium Chloride 1,000 ML IVC SCH (07:13)
[2019-04-30] MEDS: *HR* Dabigatran 150 MG CAPSULE PO SCH ×2 (08:46→20:47)
[2019-04-30] MEDS: Gabapentin 300 MG CAPSULE PO SCH ×3 (08:46→20:47)
[2019-04-30] MEDS: Magnesium Oxide 400 MG TABLET PO SCH ×2 (08:46→20:47)
[2019-04-30] MEDS: *HR* HYDROcodone/Acet 5/325 mg TABLET PO PRN ×2 (08:47→17:33)
[2019-04-30 11:36] LABS: C.difficile Toxin A/B Gene PCR Not detected (Not detect); Campylobacter by PCR Not detected (Not detect); Plesiomonas shigelloides PCR Not detected (Not detect); Salmonella PCR Not detected (Not detect); Vibrio PCR Not detected (Not detect)
[2019-04-30 11:37] LABS: Adenovirus F 40/41 PCR Not detected (Not detect); Astrovirus PCR Not detected (Not detect); Cryptosporidium by PCR Not detected (Not detect); Cyclospora cayetanensis PCR Not detected (Not detect); E. coli O157 by PCR Not detected (Not detect); Entamoeba histolytica PCR Not detected (Not detect); Enteroaggregative E.coli(EAEC) Not detected (Not detect); Enteropathogenic E.coli(EPEC) DETECTED (Not detect); Enterotoxigenic E.coli (ETEC) Not detected (Not detect); Giardia lamblia PCR Not detected (Not detect); Norovirus GI/GII PCR Not detected (Not detect); Rotavirus A PCR Not detected (Not detect); Sapovirus PCR Not detected (Not detect); Shig/EnteroinvasiveE coli EIEC Not detected (Not detect); Shigalike tox-prod E coli STEC Not detected (Not detect); Vibrio cholerae PCR Not detected (Not detect); Yersinia enterocolitica PCR Not detected (Not detect)
[2019-05-01 05:28] LABS: Hematocrit 31.4 % (35.3-44.9); Hemoglobin 9.8 g/dL (11.5-15.4); Mean Corpuscular HGB Conc 31.2 g/dL (31.6-35.5); Mean Corpuscular Hemoglobin 26.8 pg (28.0-33.3); Mean Corpuscular Volume 85.8 fL (83.0-100.0); Mean Platelet Volume 9.2 fL (9.4-12.4); Platelet Count 262 K/mcL (140-400); Red Blood Count 3.66 M/mcL (3.82-4.97)
[2019-05-01 05:48] LABS: BUN/Creatinine Ratio 6 (6-26); Blood Urea Nitrogen 2 mg/dL (6-20); Calcium 7.8 mg/dL (8.6-10.3); Carbon Dioxide 23 mEq/L (23-29); Chloride 106 mEq/L (98-107); Glucose 98 mg/dL (70-105); Magnesium 1.4 mg/dL (1.6-2.6); Osmolality,Calculated 280 (280-300); Phosphorous 2.3 mg/dL (2.7-4.5); Potassium 3.3 mEq/L (3.5-5.1); Sodium 137 mEq/L (136-145); eGFR For African Americans > 60 (> 60); eGFR For Non-African Americans > 60 (> 60)
[2019-05-01] MEDS: Gabapentin 300 MG CAPSULE PO SCH ×3 (08:55→22:07)
[2019-05-01] MEDS: Magnesium Oxide 400 MG TABLET PO SCH ×2 (08:55→22:07)
[2019-05-01] MEDS: Cholecalciferol (D-3) 1,000 UNIT (25MCG) TABLET PO SCH (08:56)
[2019-05-01] MEDS: *HR* Dabigatran 150 MG CAPSULE PO SCH ×2 (08:56→22:07)
[2019-05-01] MEDS: Lactobacillus 1 EACH CAP.SPRINK PO SCH (13:55)
[2019-05-01] MEDS: *HR* HYDROcodone/Acet 5/325 mg TABLET PO PRN (15:56)
[2019-05-01] MEDS: Diphenoxylate/Atropine 1 TAB TABLET PO PRN (15:56)
[2019-05-02 06:55] LABS: BUN/Creatinine Ratio 10 (6-26); Blood Urea Nitrogen 4 mg/dL (6-20); Calcium 8.2 mg/dL (8.6-10.3); Carbon Dioxide 25 mEq/L (23-29); Chloride 102 mEq/L (98-107); Glucose 103 mg/dL (70-105); Magnesium 1.8 mg/dL (1.6-2.6); Osmolality,Calculated 281 (280-300); Phosphorous 2.9 mg/dL (2.7-4.5); Potassium 3.2 mEq/L (3.5-5.1); Sodium 137 mEq/L (136-145); eGFR For African Americans > 60 (> 60); eGFR For Non-African Americans > 60 (> 60)
[2019-05-02] MEDS: *HR* Dabigatran 150 MG CAPSULE PO SCH ×2 (09:34→20:50)
[2019-05-02] MEDS: Gabapentin 300 MG CAPSULE PO SCH ×3 (09:34→20:50)
[2019-05-02] MEDS: Lactobacillus 1 EACH CAP.SPRINK PO SCH (09:34)
[2019-05-02] MEDS: Magnesium Oxide 400 MG TABLET PO SCH ×2 (09:34→20:49)
[2019-05-02] MEDS: Cholecalciferol (D-3) 1,000 UNIT (25MCG) TABLET PO SCH (09:43)
[2019-05-02] MEDS: Diphenoxylate/Atropine 1 TAB TABLET PO PRN (10:24)
[2019-05-02] MEDS: 0.9 % Sodium Chloride 1,000 ML IVC SCH ×2 (13:06→23:30)
[2019-05-02] MEDS: MetroNIDAZOLE 500 MG/100 ML 500 MG/100 ML BAG IVPB SCH (14:43)
[2019-05-03] MEDS: MetroNIDAZOLE 500 MG/100 ML 500 MG/100 ML BAG IVPB SCH ×3 (00:22→14:58)
[2019-05-03 05:56] LABS: BUN/Creatinine Ratio 10 (6-26); Blood Urea Nitrogen 3 mg/dL (6-20); Calcium 7.6 mg/dL (8.6-10.3); Carbon Dioxide 27 mEq/L (23-29); Chloride 104 mEq/L (98-107); Glucose 88 mg/dL (70-105); Magnesium 1.6 mg/dL (1.6-2.6); Osmolality,Calculated 284 (280-300); Phosphorous 2.4 mg/dL (2.7-4.5); Potassium 3.4 mEq/L (3.5-5.1); Sodium 139 mEq/L (136-145); eGFR For African Americans > 60 (> 60); eGFR For Non-African Americans > 60 (> 60)
[2019-05-03] MEDS: Cholecalciferol (D-3) 1,000 UNIT (25MCG) TABLET PO SCH (08:08)
[2019-05-03] MEDS: *HR* Dabigatran 150 MG CAPSULE PO SCH ×2 (08:08→21:53)
[2019-05-03] MEDS: Gabapentin 300 MG CAPSULE PO SCH ×3 (08:08→21:53)
[2019-05-03] MEDS: Lactobacillus 1 EACH CAP.SPRINK PO SCH (08:09)
[2019-05-03] MEDS: 0.9 % Sodium Chloride 1,000 ML IVC SCH ×2 (08:09→21:52)
[2019-05-03] MEDS: Magnesium Oxide 400 MG TABLET PO SCH ×2 (08:09→21:53)
[2019-05-04] MEDS: MetroNIDAZOLE 500 MG/100 ML 500 MG/100 ML BAG IVPB SCH ×2 (01:26→09:17)
[2019-05-04 06:01] LABS: BUN/Creatinine Ratio 7 (6-26); Blood Urea Nitrogen 2 mg/dL (6-20); Calcium 7.4 mg/dL (8.6-10.3); Carbon Dioxide 27 mEq/L (23-29); Chloride 108 mEq/L (98-107); Glucose 99 mg/dL (70-105); Magnesium 1.5 mg/dL (1.6-2.6); Osmolality,Calculated 286 (280-300); Sodium 140 mEq/L (136-145); eGFR For African Americans > 60 (> 60); eGFR For Non-African Americans > 60 (> 60)
[2019-05-04 07:36] VITALS: BP 119/88
[2019-05-04] MEDS: *HR* Dabigatran 150 MG CAPSULE PO SCH (09:15)
[2019-05-04] MEDS: Gabapentin 300 MG CAPSULE PO SCH (09:15)
[2019-05-04] MEDS: Cholecalciferol (D-3) 1,000 UNIT (25MCG) TABLET PO SCH (09:15)
[2019-05-04] MEDS: Magnesium Oxide 400 MG TABLET PO SCH (09:15)
[2019-05-04] MEDS: Lactobacillus 1 EACH CAP.SPRINK PO SCH (09:16)
== END 2019-05-04 15:06 | disposition home health service (06) ==
LOC: 2NENU 13:09 → EMEROOARM 13:09 → SUATTDRO 16:34 → 2NENU 17:21
PROVIDERS: ADMIT Internal Medicine Nephrology; ATTEND Pharmacist

== ENCOUNTER 2019-05-18 08:26 | Inpatient (IN) ==
--- NOTE | 2019-05-18 08:28 | Emergency Department Note ---
Disposition Clinical Impression: Rectal bleeding, History of colorectal cancer, Abscess, Rectovaginal fistula Anemia Qualifiers: Anemia type: unspecified type Qualified Code(s): D64.9 - Anemia, unspecified Disposition: Admitted As Inpatient Condition: Fair Referrals: Jacey Ochoa [Primary Care Provider] - Time of Disposition: 11:35 General Adult HPI - General Chief complaint: ED GI Bleed Stated complaint: CA, rectal bleeding Time Seen by Provider: 05/18/19 08:30 Source: patient, family Mode of arrival: ambulatory Limitations: no limitations Nursing Notes Reviewed: Yes Vital Signs Reviewed: Yes - History of Present Illness HPI Narrative: 58-year-old female who is presenting today with her daughter with a chief complaint of rectal bleeding. She states that she has had some increased bleeding from her rectum over the last few days but yesterday she began to notice that she was increasing her pads she had to go through. A lot of associated rectal pain, however her pain is chronic and has unchanged. Rated as a 3 out of 10 and is constant pain. She does take home a pain medication which she did take this morning. she is on anticoagulation after having a blood clot. Denies seeing blood from her nose or when she brushes her teeth. 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 She denies any fevers, chills, chest pain, shortness breath, nausea or vomiting, abdominal pain. She denies any focal weakness or any dizziness. Pt Subjective Complaint: rectal bleeding Pain Scale: 3 - Related Data Home Medications Medication Instructions Recorded Confirmed Ergocalciferol (VITAMIN D2) 50,000 unit PO ARAUZ 07/06/18 05/18/19 [Vitamin D2] Celecoxib [Celebrex] 200 mg PO DAILY 05/01/19 05/18/19 Diphenoxylate/Atropine [Lomotil 2 tab PO TID PRN 05/01/19 05/18/19 2.5 mg/0.025 mg] Lidocaine/Prilocaine CREAM [Emla] 1 appl TP AD 05/01/19 05/18/19 Previous Rx's Medication Instructions Recorded Tizanidine HCl [Zanaflex] 4 mg PO BID PRN #60 capsule 09/13/18 Magnesium Oxide [Mag-Ox] 400 mg PO BID #60 tablet 10/13/18 Dronabinol [Marinol] 10 mg PO BID 30 Days #60 capsule 11/03/18 Loperamide [Imodium] 2 mg PO AD PRN #60 capsule 11/29/18 Dabigatran Etexilate Mesylate 150 mg PO BID #180 capsule 01/26/19 [Pradaxa] Potassium Chloride [K-Tab ER] 20 meq PO BID #120 tablet.er 04/06/19 Omeprazole [PriLOSEC] 20 mg PO DAILY #90 capsule. 04/20/19 Calcium Carbonate [Tums] 1,000 mg PO TID tab.chew 05/04/19 HYDROcodone/Acet 5/325 mg [[place] 1 tab PO Q6H PRN 14 Days #120 tab 05/04/19 5-325 mg] Ondansetron [Zofran ODT] 8 mg SL TID PRN 30 Days #90 05/04/19 tab.rapdis Promethazine [Phenergan] 25 mg PO Q6HR PRN #30 tablet 05/04/19 Gabapentin [Neurontin] 300 mg PO TID #90 capsule 05/11/19 Allergies Allergy/AdvReac Type Severity Reaction Status Date / Time No Known Allergies Allergy Verified 05/01/19 09:47 Review of Systems: Constitutional: denies fever, chills HEENT: denies blurry vision, tinnitus, sore throat, denies nose bleeds or gum bleeding Cardio: denies chest pain, palpiltations Lungs: denies SOB, wheeze, cough, hemoptysis GI: denies N/V/D, denies abdominal pain; rectal pain and rectal bleeding : denies dysuria, hematuria MSK: denies decreased ROM, joint swelling or stiffness; can ambultate on their own Heme: admits to easy bruising Neuro: deneis numbness or tingling, denies dizziness Skin: denies open wounds or cuts Lymph: denies swelling Psych: admits anxiety, depression Allergy: denies seasonal allergies or food allergies All systems ED: reviewed and negative except as stated. Review of Systems: As Per HPI Past Medical History - Past Medical History Attestation: Yes The following information was validated with the patient. Medical history: Reports: arthritis, cancer, DVT, GERD Surgical history: Reports: , cholecystectomy Psychiatric history: Reports: no psych history - Social History Smoking Status: Never smoker Smokeless Tobacco Status: No Alcohol use: Reports: none Drug use: Reports: none Physical Exam Vital signs noted, please see nurses notes. General: Well-developed, well-nourished patient lying in bed who appears non- toxic, appears to be very uncomfortable Head: Atraumatic, normocephalic. Eyes: Sclera anicteric. ENT: Mucous membranes moist. Heart: Regular rate and rhythm without appreciable murmur. S1S2 CTA Neck: no JVD Lungs: Normal respiratory pattern without distress, lungs clear to auscultation b/l. No wheeze, rhonchi, rales or stridor Abdomen: Soft, non-tender, non-distended, no guarding or peritoneal signs. No bruising noted to the abdomen. Rectal: Appears to be some orange serosanguineous fluid in the underpants, no fifi blood. Patient is unable to tolerate rectal exam due to pain Skin: Warm and dry without rash. Neurologic: Awake and alert with normal speech and mental status. Pupils are equal. Moves all extremities equally well. No focal deficits. Psychiatric: anxious and uncomfortable Musculoskeletal: No peripheral edema. No asymmetrical swelling, no calf tenderness - General Limitations: no limitations General appearance: alert, in distress Course Course Narrative: Presenting with increasing rectal bleeding and history of rectal cancer. There is no fifi blood on rectal exam. She is unable to tolerate complete exam due to pain. We will order him routine lab work and check blood count as well as order a type and screen in case the patient does need to be transfused. Does have baseline anemia as noted on previous lab work, last hemoglobin was 9.8 about 2 weeks ago. Obtain a CT scan of her abdomen and pelvis with contrast she does have a history of a vaginal fistula and we will rule out any abscess or extension of the fistula. Pain control with fentanyl. Disposition is the patient will be likely admitted to the hospital. - Reevaluation(s) Reevaluation #1: pt not allowing us to draw labs at this time. She states that she only wants labs drawn through her port. Time: 08:45 - Consultations Consultation #1: spoke to the surgeon applications architect about the findings on CT scan. She stated that she would wish for her to be admitted to the hospital with a surgery consult and hematology oncology consult. Started on Zosyn and blood cultures to be added to orders To the oncologist applications architect at 11:26 AM and they are aware of the patient. I did inform the patient of the CT scan including the increase in size of the pulmonary nodules. Time: 11:27 Consultation #2: hospitalist accepted the admission Time: 11:35 Vital Signs Temperature 97.8 F 05/18/19 08:29 Pulse Rate 108 05/18/19 08:29 Respiratory Rate 18 05/18/19 08:29 Blood Pressure 135/95 05/18/19 08:29 O2 Sat by Pulse Oximetry 99 05/18/19 08:29 Temperature 97.8 F 05/18/19 08:29 Pulse Rate 85 05/18/19 11:32 Respiratory Rate 16 05/18/19 11:32 Blood Pressure 129/86 05/18/19 11:32 O2 Sat by Pulse Oximetry 95 05/18/19 11:32 Oxygen Delivery Oxygen Delivery Room Air Medical Decision Making - MDM Narrative Medical decision making narrative: This 58-year-old female who came in with increasing rectal bleeding. Hemoglobin was found to be 10.4, which is an increase from 9.8 as of 2 weeks ago. EMT was unremarkable other than a sodium of 134. She was found to have an increase in size of the rectovaginal fistula and an abscess in her abdomen. Surgery who requested the patient be admitted to the hospitalist service with surgical consult, also requested that she have productive held in case of need for i ntervention. Placed a hematology oncology consult and notified Dr. Villegas's nurse practitioner that the patient was at the hospital. she started on Zosyn for anaerobes and intra-abdominal pathogens and blood cultures and a lactic acid have been drawn, not currently meet any criteria for attentional sepsis however she is on Chemotherapy and believes not mounting a defense against infection.. Hospitalist accepted the admission. The patient is stable for transfer to the floor at this time. - Medical Records Medical records reviewed: Yes I reviewed the patient's medical records. - Lab Data Lab results reviewed: Yes I reviewed the patient's lab results. Result diagrams: 05/18/19 09:20 05/18/19 09:20 Lab Results 05/18/19 05/18/19 05/18/19 Range/Units 09:20 09:20 09:20 WBC 7.2 (4.3-11.1) K/mcL RBC 3.83 (3.82-4.97) M/mcL Hgb 10.4 L (11.5-15.4) g/dL Hct 33.4 L (35.3-44.9) % MCV 87.2 (83.0-100.0) fL MCH 27.2 L (28.0-33.3) pg MCHC 31.1 L (31.6-35.5) g/dL RDW 19.0 H (11.5-14.5) % Plt Count 270 (140-400) K/mcL MPV 8.8 L (9.4-12.4) fL Immature Gran % 0.4 (0-4) % Seg Neutrophils % 88.1 % Lymphocytes % 3.2 % Monocytes % 7.6 % Eosinophils % 0.6 % Basophils % 0.1 % Neutrophils # 6.4 (1.6-8.9) K/mcL Lymphocytes # 0.2 L (0.6-4.6) K/mcL Monocytes # 0.6 (0.0-1.3) K/mcL Eosinophils # 0.0 (0.0-0.6) K/mcL Basophils # 0.0 (0.0-0.2) K/mcL PT 14.6 H (9.4-12.1) Seconds INR 1.3 Sodium 134 L (136-145) mEq/L Potassium 4.0 (3.5-5.1) mEq/L Chloride 101 (98-107) mEq/L Carbon Dioxide 26 (23-29) mEq/L BUN 7 (6-20) mg/dL Creatinine 0.43 L (0.60-1.20) mg/dL Est GFR ( Amer) > 60 (> 60) Est GFR (Non-Af Amer) > 60 (> 60) BUN/Creatinine Ratio 16 (6-26) Glucose 105 (70-105) mg/dL Calculated Osmolality 276 L (280-300) Calcium 8.5 L (8.6-10.3) mg/dL Total Bilirubin 0.3 (0.3-1.0) mg/dL AST 11 L (13-39) Units/L ALT 9 (7-52) Units/L Alkaline Phosphatase 121 H (34-104) Units/L Serum Total Protein 5.5 L (6.4-8.9) g/dL Albumin 2.8 L (3.5-5.7) g/dL Globulin 2.7 (2.4-3.5) g/dL Albumin/Globulin Ratio 1.0 L (1.1-2.2) Lipase 8 L (11-82) Units/L Specimen Rejected Blood Type Antibody Screen 05/18/19 05/18/19 Range/Units 09:20 09:39 WBC (4.3-11.1) K/mcL RBC (3.82-4.97) M/mcL Hgb (11.5-15.4) g/dL Hct (35.3-44.9) % MCV (83.0-100.0) fL MCH (28.0-33.3) pg MCHC (31.6-35.5) g/dL RDW (11.5-14.5) % Plt Count (140-400) K/mcL MPV (9.4-12.4) fL Immature Gran % (0-4) % Seg Neutrophils % % Lymphocytes % % Monocytes % % Eosinophils % % Basophils % % Neutrophils # (1.6-8.9) K/mcL Lymphocytes # (0.6-4.6) K/mcL Monocytes # (0.0-1.3) K/mcL Eosinophils # (0.0-0.6) K/mcL Basophils # (0.0-0.2) K/mcL PT (9.4-12.1) Seconds INR Sodium (136-145) mEq/L Potassium (3.5-5.1) mEq/L Chloride (98-107) mEq/L Carbon Dioxide (23-29) mEq/L BUN (6-20) mg/dL Creatinine (0.60-1.20) mg/dL Est GFR ( Amer) (> 60) Est GFR (Non-Af Amer) (> 60) BUN/Creatinine Ratio (6-26) Glucose (70-105) mg/dL Calculated Osmolality (280-300) Calcium (8.6-10.3) mg/dL Total Bilirubin (0.3-1.0) mg/dL AST (13-39) Units/L ALT (7-52) Units/L Alkaline Phosphatase (34-104) Units/L Serum Total Protein (6.4-8.9) g/dL Albumin (3.5-5.7) g/dL Globulin (2.4-3.5) g/dL Albumin/Globulin Ratio (1.1-2.2) Lipase (11-82) Units/L Specimen Rejected Labelling Blood Type O POSITIVE Antibody Screen NEGATIVE - Radiology Data Radiology results reviewed: Yes I reviewed the patient's radiology results. Abdomen/Pelvis CT 05/18/19 08:48 IMPRESSION: 1. Rectovaginal fistula is more evident on the current study compared to prior study. Heterogeneous extraluminal fluid collection with foci of gas in the right posterior pelvic sidewall measures about 3.3 x 2 cm consistent with abscess. Additionally, there is right perirectal extraluminal fluid collection which measures about 2 x 1.3 cm. 2. Increase in size of right lower lobe lung nodule suspicious for worsening metastatic pulmonary nodule. 3. Stable presacral soft tissue nodule, presumably metastatic lymphadenopathy. D/ / 05/18/2019 11:30:55 Joselyn Lemons MD / [email or web address] Interpreting Provider: Joselyn Lemons MD Attestation Statement - Attestation Attestation: I reviewed the residents documentation and agree with the residents assessment and plan of care. I have personally had face to face time with the patient. (Brief History, Brief Exam, and MDM) I personally supervised and was present for the nuñez/critical portions of the following procedures completed by the resident: (add procedures performed here). Qxin-as-bqwd time provided Patient presents with bright red blood from her rectum. She currently takes products of. She has a history of stage IV rectal cancer getting chemotherapy. She appears thin, frail, older than stated age on exam. No external rectal lesions identified.
[2019-05-18] MEDS ORDERED: Isovue-370 500 ML BOTTLE IVP ONE (08:48)
[2019-05-18] MEDS ORDERED: *HR* FentaNYL (PF) 100 MCG/2 ML VIAL IVP ONE (08:49)
[2019-05-18] MEDS ORDERED: Lido/Epi/Tetra Gel 2 ML SYRINGE TP ONE (08:54)
[2019-05-18 09:44] LABS: Basophils % 0.1 %; Eosinophils % 0.6 %; Hematocrit 33.4 % (35.3-44.9); Hemoglobin 10.4 g/dL (11.5-15.4); Immature Granulocytes % 0.4 % (0-4); Lymphocytes # 0.2 K/mcL (0.6-4.6); Lymphocytes % 3.2 %; Mean Corpuscular HGB Conc 31.1 g/dL (31.6-35.5); Mean Corpuscular Hemoglobin 27.2 pg (28.0-33.3); Mean Corpuscular Volume 87.2 fL (83.0-100.0); Mean Platelet Volume 8.8 fL (9.4-12.4); Monocytes # 0.6 K/mcL (0.0-1.3); Monocytes % 7.6 %; Neutrophils # 6.4 K/mcL (1.6-8.9); Platelet Count 270 K/mcL (140-400); Red Blood Count 3.83 M/mcL (3.82-4.97); Segmented Neutrophils % 88.1 %; White Blood Count 7.2 K/mcL (4.3-11.1)
[2019-05-18 10:02] LABS: INR 1.3; Prothrombin Time 14.6 Seconds (9.4-12.1)
[2019-05-18 10:04] LABS: Alanine Aminotransferase 9 Units/L (7-52); Albumin 2.8 g/dL (3.5-5.7); Alkaline Phosphatase 121 Units/L (34-104); Aspartate Amino Transferase 11 Units/L (13-39); BUN/Creatinine Ratio 16 (6-26); Bilirubin,Total 0.3 mg/dL (0.3-1.0); Blood Urea Nitrogen 7 mg/dL (6-20); Calcium 8.5 mg/dL (8.6-10.3); Carbon Dioxide 26 mEq/L (23-29); Chloride 101 mEq/L (98-107); Globulin 2.7 g/dL (2.4-3.5); Glucose 105 mg/dL (70-105); Lipase 8 Units/L (11-82); Osmolality,Calculated 276 (280-300); Sodium 134 mEq/L (136-145); Total Protein 5.5 g/dL (6.4-8.9); eGFR For African Americans > 60 (> 60); eGFR For Non-African Americans > 60 (> 60)
[2019-05-18] MEDS ORDERED: Piperacillin/Tazobactam 4.5 GM in 0.9 % Sodium Chloride Mini Bag 100 ML IVPB ONE (11:18)
--- NOTE | 2019-05-18 11:27 | AcuteCare Surgery Consult Note ---
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 She has known metastatic rectal cancer to lungs and nodes. She now has extension of rectal tumor causing rectovaginal fistula and pelvic abscess. Also, her rectal tumor is bleeding acutely although, insidiously. She is hemodynamically stable with chronic anemia. The recommendation for diverting colostomy and pelvic drainage to treat the rectovaginal fistula and pelvic abscess is discussed with the patient and her daughter. The patient is refusing surgery for colostomy. I feel she does understand the repercussion of no surgery. Her decision is respected. Alternative treatment can include DC Pradaxa to help with rectal bleeding. IVC filter should be considered. Also, IR drainage of pelvic abscess can be offered. Pt is willing to DC Pradaxa and undergo IVC filter placement and percutaneous drainage of pelvic abscess. Case discussed with oncology and admitting hospitalist. Surgery will sign off. Thank you for allowing us to participate in this very nice, very unfortunate lady's care. It will be our pleasure to reconsult as needed. (2) Rectal bleeding Current Visit: Yes Status: Acute see above (3) Rectovaginal fistula Current Visit: Yes Status: Acute see above (4) Pelvic abscess Current Visit: Yes Status: Acute Recommend IR drainage and IV abx. (5) Hx of deep venous thrombosis Current Visit: Yes Status: Acute 10/2018. Pt is on Pradaxa terminal system operator. Recommend DC Pradaxa; see above. Recommend IVC filter. History of Present Illness Consult date: 05/18/19 Reason for consult: other (rectal bleeding) Requesting physician: Victor M Garzon History of present illness: This 58 y/o female presents to [facility] ED c/o rectal bleeding. She was diagnosed with rectal cancer with mets to lung 1 year ago. She has not undergone surgery for rectal cancer but has undergone chemo/XRT. She reports BRBPR that started a few days ago but, really worsened yesterday. She also reports BRBP vagina. She reports no new abdominal or pelvic pain. She report she always has pressure in her pelvis. She denies any lower extremity swelling. She has hx of LLE DVT from 10/18. She is on Pradaxa for this. She denies CP or SOB. She denies n/v. She reports chronically poor appetite. She denies fevers. Past Med Surg Social Fam HX - Past Medical History Medical history: arthritis, cancer, DVT, GERD Additional medical history: multiple sclerosis. stage 4 rectal cancer Psychiatric history: no psych history - Past Surgical History Surgical History: , cholecystectomy Additional surgical history: Left Foot - Social History Smoking Status: Never smoker Smokeless Tobacco Status: No Alcohol use: none Drug use: none - Family History Mother Living Status: Hx Family Cardiac Disorders: Yes Hx Family Respiratory Disorders: Yes Hx Family Cancer: Yes Medications and Allergies Ergocalciferol (VITAMIN D2) [Vitamin D2] 50,000 unit PO ARAUZ 07/06/18 [History] Tizanidine HCl [Zanaflex] 4 mg PO BID PRN #60 capsule 09/13/18 [Rx] Magnesium Oxide [Mag-Ox] 400 mg PO BID #60 tablet 10/13/18 [Rx] Dronabinol [Marinol] 10 mg PO BID 30 Days #60 capsule 11/03/18 [Rx] Loperamide [Imodium] 2 mg PO AD PRN #60 capsule 11/29/18 [Rx] Dabigatran Etexilate Mesylate [Pradaxa] 150 mg PO BID #180 capsule 01/26/19 [Rx] Potassium Chloride [K-Tab ER] 20 meq PO BID #120 tablet.er 04/06/19 [Rx] Omeprazole [PriLOSEC] 20 mg PO DAILY #90 capsule. 04/20/19 [Rx] Celecoxib [Celebrex] 200 mg PO DAILY 05/01/19 [History] Diphenoxylate/Atropine [Lomotil 2.5 mg/0.025 mg] 2 tab PO TID PRN 05/01/19 [History] Lidocaine/Prilocaine CREAM [Emla] 1 appl TP AD 05/01/19 [History] Calcium Carbonate [Tums] 1,000 mg PO TID tab.chew 05/04/19 [Rx] HYDROcodone/Acet 5/325 mg [[place] 5-325 mg] 1 tab PO Q6H PRN 14 Days #120 tab 02/17 [Rx] Ondansetron [Zofran ODT] 8 mg SL TID PRN 30 Days #90 tab.rapdis 05/04/19 [Rx] Promethazine [Phenergan] 25 mg PO Q6HR PRN #30 tablet 05/04/19 [Rx] Gabapentin [Neurontin] 300 mg PO TID #90 capsule 05/11/19 [Rx] Allergy/AdvReac Type Severity Reaction Status Date / Time No Known Allergies Allergy Verified 05/01/19 09:47 Review of Systems All systems PM: The remainder of the systems were reviewed and are negative - Constitutional anorexia, fatigue, weakness, weight loss, no chills, no excessive sweating, no fever(s), no headache(s), no night sweats - EENT Nose, mouth and throat: dry mouth, no dizziness, no nasal congestion, no nasal discharge, no sinus pain, no sinus pressure, no sore throat - Cardiovascular no chest pain, no diaphoresis, no dyspnea, no edema - Respiratory no cough, no dyspnea, no wheezing - Gastrointestinal constipation, hematochezia (rectal bleeding), other (Pelvic pressure and rectal pain), no abdominal pain, no bloating, no diarrhea, no nausea, no vomiting - Genitourinary Genitourinary: urinary incontinence, vaginal discharge (bloody), no dysuria, no flank pain, no urinary frequency - Musculoskeletal back pain, neck pain, no joint swelling, no limited range of motion - Integumentary dry skin, no pruritus, no rash, no wounds, no jaundice - Neurological weakness, no confusion, no dizziness, no focal weakness - Psychiatric anxiety, depression - Hematologic/Lymphatic no easy bleeding, no easy bruising General Surgery Exam Initial Vital Signs Temp Pulse Resp BP Pulse Ox 97.8 F 108 18 135/95 99 05/18/19 08:29 05/18/19 08:29 05/18/19 08:29 05/18/19 08:29 05/18/19 08:29 - General physical appearance moderate distress, cachectic, chronically ill. negative: no pain, jaundice - Eyes PERRL, normal ocular movement. negative: icteric - ENT no congestion, dry mucosa. negative: nasal discharge - Neck no masses, trachea midline, no lymphadectomy, no venous distension - Respiratory normal respiratory effort, clear to auscultation - Cardiovascular Cardiovascular exam: Present: RRR. Absent: JVD - Abdomen Abdomen general surgery: Present: bowel sounds present, soft, non tender. Absent: distended, guarding, rebound - Genitourinary Present: other (vaginal bleeding) - Rectum Rectum: Present: mass. Absent: no masses, no bleeding - Integumentary Integumentary general surgery: Present: warm and dry - Neurologic Present: CN 2-12 grossly intact, normal coordination - Musculoskeletal Present: normal posture - Psychiatric Psychiatric general surgery: Present: A&Ox3, appropriate Exam Initial Vital Signs Temp Pulse Resp BP Pulse Ox 97.8 F 108 18 135/95 99 05/18/19 08:29 05/18/19 08:29 05/18/19 08:29 05/18/19 08:29 05/18/19 08:29 Results - Labs 05/18/19 09:20 05/18/19 09:20 Abnormal lab results Hgb 10.4 g/dL (11.5-15.4) L 05/18/19 09:20 Hct 33.4 % (35.3-44.9) L 05/18/19 09:20 MCH 27.2 pg (28.0-33.3) L 05/18/19 09:20 MCHC 31.1 g/dL (31.6-35.5) L 05/18/19 09:20 RDW 19.0 % (11.5-14.5) H 05/18/19 09:20 MPV 8.8 fL (9.4-12.4) L 05/18/19 09:20 Lymphocytes # 0.2 K/mcL (0.6-4.6) L 05/18/19 09:20 PT 14.6 Seconds (9.4-12.1) H 05/18/19 09:20 Sodium 134 mEq/L (136-145) L 05/18/19 09:20 Creatinine 0.43 mg/dL (0.60-1.20) L 05/18/19 09:20 Calculated Osmolality 276 (280-300) L 05/18/19 09:20 Calcium 8.5 mg/dL (8.6-10.3) L 05/18/19 09:20 AST 11 Units/L (13-39) L 05/18/19 09:20 Alkaline Phosphatase 121 Units/L (34-104) H 05/18/19 09:20 Serum Total Protein 5.5 g/dL (6.4-8.9) L 05/18/19 09:20 Albumin 2.8 g/dL (3.5-5.7) L 05/18/19 09:20 Albumin/Globulin Ratio 1.0 (1.1-2.2) L 05/18/19 09:20 Lipase 8 Units/L (11-82) L 05/18/19 09:20 Diabetes panel 05/18/19 Range/Units 09:20 Sodium 134 L (136-145) mEq/L Potassium 4.0 (3.5-5.1) mEq/L Chloride 101 (98-107) mEq/L Carbon Dioxide 26 (23-29) mEq/L BUN 7 (6-20) mg/dL Creatinine 0.43 L (0.60-1.20) mg/dL Glucose 105 (70-105) mg/dL Calcium 8.5 L (8.6-10.3) mg/dL AST 11 L (13-39) Units/L ALT 9 (7-52) Units/L Alkaline Phosphatase 121 H (34-104) Units/L Albumin 2.8 L (3.5-5.7) g/dL Calcium panel 05/18/19 Range/Units 09:20 Calcium 8.5 L (8.6-10.3) mg/dL Albumin 2.8 L (3.5-5.7) g/dL Pituitary panel 05/18/19 Range/Units 09:20 Sodium 134 L (136-145) mEq/L Potassium 4.0 (3.5-5.1) mEq/L Chloride 101 (98-107) mEq/L Carbon Dioxide 26 (23-29) mEq/L BUN 7 (6-20) mg/dL Creatinine 0.43 L (0.60-1.20) mg/dL Glucose 105 (70-105) mg/dL Calcium 8.5 L (8.6-10.3) mg/dL Adrenal panel 05/18/19 Range/Units 09:20 Sodium 134 L (136-145) mEq/L Potassium 4.0 (3.5-5.1) mEq/L Chloride 101 (98-107) mEq/L Carbon Dioxide 26 (23-29) mEq/L BUN 7 (6-20) mg/dL Creatinine 0.43 L (0.60-1.20) mg/dL Glucose 105 (70-105) mg/dL Calcium 8.5 L (8.6-10.3) mg/dL Total Bilirubin 0.3 (0.3-1.0) mg/dL AST 11 L (13-39) Units/L ALT 9 (7-52) Units/L Alkaline Phosphatase 121 H (34-104) Units/L Albumin 2.8 L (3.5-5.7) g/dL All other labs normal. - Imaging CT scan - abdomen: image reviewed CT scan - pelvis: image reviewed (1. Rectovaginal fistula is more evident on the current study compared to prior study. Heterogeneous extraluminal fluid collection with foci of gas in the right posterior pelvic sidewall measures about 3.3 x 2 cm consistent with abscess. Additionally, there is right perirectal extraluminal fluid collection which measures about 2 x 1.3 cm. 2. Increase in size of right lower lobe lung nodule suspicious for worsening metastatic pulmonary nodule. 3. Stable presacral soft tissue nodule, presumably metastatic lymphadenopathy.) Consult Discharge Plan - Plan Referrals: Jacey Ochoa [Primary Care Provider] -
[2019-05-18] MEDS ORDERED: Piperacillin/Tazobactam 3.375 GM in 0.9 % Sodium Chloride Mini Bag 100 ML IVPB ONE (11:31)
--- NOTE | 2019-05-18 12:14 | Internal Med History&Physical ---
Date of Encounter: 05/18/19 Time of Encounter: 15:49 Internal Medicine - H&P: HPI History of present illness: Ms. Gupta is a 58 year old female with history of stage IV rectal cancer and DVT on Pradaxa, rectovaginal fistula, presented to ED for bright red blood per rectum. Has been going on for several days but overnight and this morning has filled her diaper completely. She is having some accompanied 5 out of 10 pelvic pain as well. Blood is mixed in with stool. No clots appreciated. She denies any chest pain, SOB, n/v, diarrhea/constipation, dysuria, hematuria, fevers/chills. In the ED she was hemodynamicallly stable, hemoglobin 10.4 which is around baseline. A CT abdomen/pelvis with contrast showed a known rectovaginal fistula that is now more evident compared to prior. There is also a 3.3x2 cm foci of gas in posterior pelvic sidewall consistent with abscess, and an increase in size of a right lower lobe lung nodule. She received Vancomycin and Zosyn. Past Med Surg Social Fam HX - Past Medical History Medical history: arthritis, cancer, DVT, GERD Additional medical history: multiple sclerosis. stage 4 rectal cancer Psychiatric history: no psych history - Past Surgical History Surgical History: , cholecystectomy Additional surgical history: Left Foot - Social History Smoking Status: Never smoker Smokeless Tobacco Status: No Alcohol use: none Drug use: none - Family History Mother Living Status: Hx Family Cardiac Disorders: Yes Hx Family Respiratory Disorders: Yes Hx Family Cancer: Yes Internal Medicine - H&P: Meds Ergocalciferol (VITAMIN D2) [Vitamin D2] 50,000 unit PO ARAUZ 07/06/18 [History] Tizanidine HCl [Zanaflex] 4 mg PO BID PRN #60 capsule 09/13/18 [Rx] Magnesium Oxide [Mag-Ox] 400 mg PO BID #60 tablet 10/13/18 [Rx] Dronabinol [Marinol] 10 mg PO BID 30 Days #60 capsule 11/03/18 [Rx] Loperamide [Imodium] 2 mg PO AD PRN #60 capsule 11/29/18 [Rx] Dabigatran Etexilate Mesylate [Pradaxa] 150 mg PO BID #180 capsule 01/26/19 [Rx] Potassium Chloride [K-Tab ER] 20 meq PO BID #120 tablet.er 04/06/19 [Rx] Omeprazole [PriLOSEC] 20 mg PO DAILY #90 capsule. 04/20/19 [Rx] Celecoxib [Celebrex] 200 mg PO DAILY 05/01/19 [History] Diphenoxylate/Atropine [Lomotil 2.5 mg/0.025 mg] 2 tab PO TID PRN 05/01/19 [History] Lidocaine/Prilocaine CREAM [Emla] 1 appl TP AD 05/01/19 [History] Calcium Carbonate [Tums] 1,000 mg PO TID tab.chew 05/04/19 [Rx] HYDROcodone/Acet 5/325 mg [[place] 5-325 mg] 1 tab PO Q6H PRN 14 Days #120 tab 05/04/19 [Rx] Ondansetron [Zofran ODT] 8 mg SL TID PRN 30 Days #90 tab.rapdis 05/04/19 [Rx] Promethazine [Phenergan] 25 mg PO Q6HR PRN #30 tablet 05/04/19 [Rx] Gabapentin [Neurontin] 300 mg PO TID #90 capsule 05/11/19 [Rx] Allergy/AdvReac Type Severity Reaction Status Date / Time No Known Allergies Allergy Verified 05/01/19 09:47 All Systems PM: A 10-system review of systems was performed and is negative for pertinent findings except as documented above in the HPI. - Constitutional Vitals: Temp Pulse Resp BP Pulse Ox 97.8 F 85 16 129/86 95 05/18/19 08:29 05/18/19 11:32 05/18/19 11:32 05/18/19 11:32 05/18/19 11:32 General appearance: Present: A&O X 3, no acute distress, answers questions appropriately Exam: Med port in right chest wall - Head Head exam: Present: atraumatic, normocephalic - Eye Eye exam: Present: PERRL, conjuntiva pink, sclera anicteric Pupils: Present: PERRL - Neck Neck exam general surgery: Present: supple, trachea midline. Absent: lymphadenopathy - Respiratory Respiratory exam: Present: decreased breath sounds. Absent: accessory muscle use, rales, rhonchi, wheezes - Cardiovascular Cardiovascular exam: Present: RRR, +S1, +S2. Absent: diastolic murmur, gallop, rubs, systolic murmur - GI/Abdominal GI/Abdominal exam: Present: normal bowel sounds, soft, no peritoneal signs. Absent: distended, tenderness - Extremities Exam Extremities exam: Present: warm, radial pulses palpable and symmetrical. Absent: calf tenderness, cyanotic, pedal edema - Neurological Exam Neurological exam: Present: CN II-XII intact, oriented X3, no focal deficits. Absent: pronater drift, facial droop, speech deficit - Skin Skin exam: Present: dry, intact Internal Med - H&P Results - Labs CBC & Chem 7: 05/18/19 09:20 05/18/19 09:20 Labs: Short CBC 05/18/19 Range/Units 09:20 WBC 7.2 (4.3-11.1) K/mcL Hgb 10.4 L (11.5-15.4) g/dL Hct 33.4 L (35.3-44.9) % Plt Count 270 (140-400) K/mcL Neutrophils # 6.4 (1.6-8.9) K/mcL BMP 05/18/19 09:20 Sodium 134 L Potassium 4.0 Chloride 101 Carbon Dioxide 26 BUN 7 Creatinine 0.43 L Glucose 105 Calcium 8.5 L Liver Function 05/18/19 Range/Units 09:20 Total Bilirubin 0.3 (0.3-1.0) mg/dL AST 11 L (13-39) Units/L ALT 9 (7-52) Units/L Alkaline Phosphatase 121 H (34-104) Units/L Albumin 2.8 L (3.5-5.7) g/dL - Impressions ITS Impressions Abdomen/Pelvis CT 05/18/19 08:48 IMPRESSION: 1. Rectovaginal fistula is more evident on the current study compared to prior study. Heterogeneous extraluminal fluid collection with foci of gas in the right posterior pelvic sidewall measures about 3.3 x 2 cm consistent with abscess. Additionally, there is right perirectal extraluminal fluid collection which measures about 2 x 1.3 cm. 2. Increase in size of right lower lobe lung nodule suspicious for worsening metastatic pulmonary nodule. 3. Stable presacral soft tissue nodule, presumably metastatic lymphadenopathy. D/ / 05/18/2019 11:30:55 Joselyn Lemons MD / [email or web address] Interpreting Provider: Joselyn Lemons MD - Assessment and Plan (1) Rectal bleeding Current Visit: Yes Status: Acute Assessment and plan: Due to the extension of rectal tumor and patient on Pradaxa for DVT. General Surgery was consulted in ED and patient declined a recommended diverting colostopy and pelvic drainage. Treatment for bleeding will be limited, but holding Pradaxa would be most imperative but places her at high risk of another DVT or other VTE. - Hold Pradaxa - Consult Vascular Surgery for potential placement of IV filter - Cycle H&H, monitor vital signs closely - Oncology consulted, recommendations appreciated. (2) Metastatic colorectal cancer Current Visit: Yes Status: Acute Assessment and plan: Stage IV rectal cancer with lung metastatic disease. On chemotherapy. Oncology consulted. (3) Anemia Current Visit: Yes Status: Acute Assessment and plan: At baseline. Due to iron deficiency and also anemia of chronic disease. Repeat H&H as patient was having significant bleed earlier. Qualifiers: Anemia type: unspecified type Qualified Code(s): D64.9 - Anemia, unspecified (4) Hx of deep venous thrombosis Current Visit: Yes Status: Acute Assessment and plan: On Pradaxa, but will be held due to BRBPR. Vascular Surgery consulted, patient may benefit from IVC filter since she is having bleeding with Pradaxa now. (5) Pelvic abscess Current Visit: Yes Status: Acute Assessment and plan: Patient does not meet sepsis criteria. Will need drained by IR - Patient had Pradaxa this morning before coming to ED. Will hold Pradaxa and consult IR tomorrow since she received anticoagulation today. Continue Vanc/Zosyn. (6) Rectovaginal fistula Current Visit: Yes Status: Acute (7) GERD (gastroesophageal reflux disease) Current Visit: No Status: Acute Qualifiers: Qualified Code(s): K21.9 - Gastro-esophageal reflux disease without esophagitis (8) Severe protein-calorie malnutrition Current Visit: No Status: Chronic - Time Spent With Patient Total time spent is greater than 50% in coordination of care (as documented) at patient's floor/unit and/or counseling patient:
[2019-05-18] MEDS ORDERED: tiZANidine 4 MG TABLET PO PRN (15:26)
[2019-05-18] MEDS ORDERED: Ondansetron ODT 4 MG TAB.RAPDIS SL PRN (15:26)
[2019-05-18] MEDS ORDERED: Diphenoxylate/Atropine 1 TAB TABLET PO PRN (15:26)
[2019-05-18] MEDS ORDERED: Naloxone 0.4 MG/ML INJ IVP PRN (16:27)
[2019-05-18] MEDS ORDERED: *HR* FentaNYL (PF) 100 MCG/2 ML VIAL IVP PRN (16:33)
--- NOTE | 2019-05-18 16:56 | Oncology Inp Consult Note ---
<Gloria Garcia - Last Filed: 05/18/19 16:41> Date of Encounter: 05/18/19 Time of Encounter: 14:50 - Data of Consult Patient: known to practice within the last 3 years Requesting Physician: Jorge Huston MD Primary Care Provider: Jacey Ochoa - Consult Narrative History of present illness: Kim, a 58 yo female with known history of metastatic rectal adenocarcinoma, presented to the ED for worsening rectal bleeding. In the ED the CT abdomen and pelvis noted rectovaginal fistula along with gas and fluid collection along the right aspect of the rectum, consistent with abscess. There is additional fluid collection towards the right posterolateral pelvic wall. Surgery was consulted for diversion; however patient declines colostomy. She notes that she declines APR in the past. CT chest notes increase in size of RLL pulmonary nodules. In the ED she was open to IR draining the abscess, but patient visibly upset by the news of progression of her cancer. Declines conversation with palliative care at this time and would prefer to discuss with Dr. Villegas at a later date. Discussed that Dr. Villegas is out of the office. Family aware and note they are supposed to see him in the clinic next week. Daughter at bedside and active in care. She notes that her siblings are supposed to come to the hospital later this afternoon. Oncology history: Metastatic rectal adenocarcinoma. DORYS, BRAF WT, KRAS WT, p53 mutated, PIK3CA mutated. Patient is symptomatic with a partially obstructing primary tumor causing her discomfort and tenesmus. She has been found to have multiple noncalcified pulmonary nodules biopsy proven metastatic disease. Primary oncologist: Dr. Villegas Prior therapy: 1. Xeloda with radiation 07/07/18-08/24/18 2. FOLFOX with panitumumab 09/29/2018-01/05/2019, stopped secondary to progression Current therapy: 1. FOLFIRI with Avastin initiated 01/26/2019 CT imaging 03/16/2019 with a positive response to therapy. Last dose given 04/20/19: Irinotecan 135 mg/m2 (which is a 75% reduction) Treatment intent: Palliative Past Med Surg Social Fam HX - Past Medical History Medical history: arthritis, cancer, DVT, GERD Additional medical history: multiple sclerosis. stage 4 rectal cancer Psychiatric history: no psych history - Past Surgical History Surgical History: , cholecystectomy Additional surgical history: Left Foot - Social History Smoking Status: Never smoker Smokeless Tobacco Status: No Alcohol use: none Drug use: none - Family History Mother Living Status: Hx Family Cardiac Disorders: Yes Hx Family Respiratory Disorders: Yes Hx Family Cancer: Yes Medications and Allergies Ergocalciferol (VITAMIN D2) [Vitamin D2] 50,000 unit PO ARAUZ 07/06/18 [History] Tizanidine HCl [Zanaflex] 4 mg PO BID PRN #60 capsule 09/13/18 [Rx] Magnesium Oxide [Mag-Ox] 400 mg PO BID #60 tablet 10/13/18 [Rx] Dronabinol [Marinol] 10 mg PO BID 30 Days #60 capsule 11/03/18 [Rx] Loperamide [Imodium] 2 mg PO AD PRN #60 capsule 11/29/18 [Rx] Dabigatran Etexilate Mesylate [Pradaxa] 150 mg PO BID #180 capsule 01/26/19 [Rx] Potassium Chloride [K-Tab ER] 20 meq PO BID #120 tablet.er 04/06/19 [Rx] Omeprazole [PriLOSEC] 20 mg PO DAILY #90 capsule. 04/20/19 [Rx] Celecoxib [Celebrex] 200 mg PO DAILY 05/01/19 [History] Diphenoxylate/Atropine [Lomotil 2.5 mg/0.025 mg] 2 tab PO TID PRN 05/01/19 [History] Lidocaine/Prilocaine CREAM [Emla] 1 appl TP AD 05/01/19 [History] Calcium Carbonate [Tums] 1,000 mg PO TID tab.chew 05/04/19 [Rx] HYDROcodone/Acet 5/325 mg [[place] 5-325 mg] 1 tab PO Q6H PRN 14 Days #120 tab 05/04/19 [Rx] Ondansetron [Zofran ODT] 8 mg SL TID PRN 30 Days #90 tab.rapdis 05/04/19 [Rx] Promethazine [Phenergan] 25 mg PO Q6HR PRN #30 tablet 05/04/19 [Rx] Gabapentin [Neurontin] 300 mg PO TID #90 capsule 05/11/19 [Rx] Allergy/AdvReac Type Severity Reaction Status Date / Time No Known Allergies Allergy Verified 05/01/19 09:47 Oncology Inpatient Results Labs: Laboratory Results - last 24 hr 05/18/19 05/18/19 05/18/19 09:20 09:20 09:20 WBC 7.2 RBC 3.83 Hgb 10.4 L Hct 33.4 L MCV 87.2 MCH 27.2 L MCHC 31.1 L RDW 19.0 H Plt Count 270 MPV 8.8 L Immature Gran % 0.4 Seg Neutrophils % 88.1 Lymphocytes % 3.2 Monocytes % 7.6 Eosinophils % 0.6 Basophils % 0.1 Neutrophils # 6.4 Lymphocytes # 0.2 L Monocytes # 0.6 Eosinophils # 0.0 Basophils # 0.0 PT 14.6 H INR 1.3 Sodium 134 L Potassium 4.0 Chloride 101 Carbon Dioxide 26 BUN 7 Creatinine 0.43 L Est GFR ( Amer) > 60 Est GFR (Non-Af Amer) > 60 BUN/Creatinine Ratio 16 Glucose 105 Calculated Osmolality 276 L Lactic Acid Calcium 8.5 L Total Bilirubin 0.3 AST 11 L ALT 9 Alkaline Phosphatase 121 H Serum Total Protein 5.5 L Albumin 2.8 L Globulin 2.7 Albumin/Globulin Ratio 1.0 L Lipase 8 L Specimen Rejected Blood Type Antibody Screen 05/18/19 05/18/19 05/18/19 09:20 09:39 11:37 WBC RBC Hgb Hct MCV MCH MCHC RDW Plt Count MPV Immature Gran % Seg Neutrophils % Lymphocytes % Monocytes % Eosinophils % Basophils % Neutrophils # Lymphocytes # Monocytes # Eosinophils # Basophils # PT INR Sodium Potassium Chloride Carbon Dioxide BUN Creatinine Est GFR ( Amer) Est GFR (Non-Af Amer) BUN/Creatinine Ratio Glucose Calculated Osmolality Lactic Acid 0.9 Calcium Total Bilirubin AST ALT Alkaline Phosphatase Serum Total Protein Albumin Globulin Albumin/Globulin Ratio Lipase Specimen Rejected Labelling Blood Type O POSITIVE Antibody Screen NEGATIVE Abdomen/Pelvis CT 05/18/19 08:48 IMPRESSION: 1. Rectovaginal fistula is more evident on the current study compared to prior study. Heterogeneous extraluminal fluid collection with foci of gas in the right posterior pelvic sidewall measures about 3.3 x 2 cm consistent with abscess. Additionally, there is right perirectal extraluminal fluid collection which measures about 2 x 1.3 cm. 2. Increase in size of right lower lobe lung nodule suspicious for worsening metastatic pulmonary nodule. 3. Stable presacral soft tissue nodule, presumably metastatic lymphadenopathy. D/ / 05/18/2019 11:30:55 Joselyn Lemons MD / [email or web address] Interpreting Provider: Joselyn Lemons MD Consult Discharge Plan - Plan Referrals: Jacey Ochoa [Primary Care Provider] - Inpatient Charges Provider: Dr. Jeff Castro <Destinee Castro S - Last Filed: 05/18/19 19:19> Date of Encounter: 05/18/19 - Data of Consult Requesting Physician: Jorge Huston MD Primary Care Provider: Jacey Ochoa Inpatient Charges Provider: Dr. Jeff Castro Consult - Inpatient: [id number] - Attending Attestation I examined this patient and my medical decision-making was reviewed with the Advanced Practice Nurse. I agree with the documented findings, disposition and treatment plan as described except to the extent set forth below. 1. Metastatic rectal adenocarcinoma, presented to the ED for worsening rectal bleeding. In the ED the CT abdomen and pelvis noted rectovaginal fistula along with gas and fluid collection along the right aspect of the rectum, consistent with abscess. She also has some bleeding and passing stools through the vaginal area. Counseled her extensively about possible fecal contamination in the vaginal area and risk for UTI She is not interested in surgical diversion/colostomy 2. History of left lower extremity DVT on Pradaxa. He went the history of bleeding the plan is to do IVC filter scheduled for tomorrow and anticoagulation stopped 3. Metastatic rectal adenocarcinoma. She progressed on FOLFOX and panitumumab and currently on FOLFIRI Avastin. CT abdomen and pelvis 05/18/2019 showed progression of lung nodules. She is microsatellite stable and LASHAUN wild type. She will discuss with Dr. dunn about future treatment options 4. She is agreeable for pelvic abscess drainage Had a long discussion with her and the family. She does have evidence of local progression from rectal cancer. She has some rectal pressure from abscess. Once the abscess is drained may consider radiation consult for local disease control
--- NOTE | 2019-05-18 17:22 | Vascular/Endovasc Consult Note ---
Date of Encounter: 05/18/19 Time of Encounter: 17:20 Assessment and Plan (1) Rectal bleeding Current Visit: Yes Status: Acute Patient has rectovaginal fistula with history of rectal cancer that is stage IV with lung metastases. I reviewed with the patient in detail the potential treatment options. We discussed potential risks with and without anticoagulation and with an without mechanical protection from pulmonary emboli. After full discussion of the issue of potential risks and benefits patient is opted to proceed with placement of an IVC filter. We'll schedule this procedure for tomorrow. (2) Rectovaginal fistula Current Visit: Yes Status: Acute Patient has rectovaginal fistula. The patient has declined colostomy area (3) Pelvic abscess Current Visit: Yes Status: Acute Patient has a suspected abscess on CT scan of the pelvis. Patient may be candidate for. Cutaneous drainage of this in near future. Anticoagulation will need to be held for this type of intervention and placement of the IVC filter will facilitate any interventional procedures in the future. - History of Present Illness Consult date: 05/18/19 Consult reason: Rectal bleeding while anticoagulated for DVT Chief complaint: Rectal bleeding History of present illness: Ms. Gupta is a 58 year old female With a history of stage IV rectal cancer. Patient has known metastasis to the lungs. She also developed a left lower extremity DVT in late October. She was originally treated with Xareltoand this was converted to Pradaxa. She has been anticoagulated since that time. The patient has developed rectal bleeding. This is been ongoing for a few days. She was admitted via the emergency room earlier today during the CT scan also revealed potential pelvic abscess. Vascular surgery was asked to see the patient for placement of an IVC filter. The patient did take her anticoagulation medicine earlier this morning. The patient has no history of pulmonary emboli. The patient states that the left lower extremity swelling secondary to the DVT has improved but is not completely resolved. Past Med Surg Social Fam HX - Past Medical History Medical history: arthritis, cancer, DVT, GERD Additional medical history: multiple sclerosis. stage 4 rectal cancer Psychiatric history: no psych history - Past Surgical History Surgical History: , cholecystectomy Additional surgical history: Left Foot - Social History Smoking Status: Never smoker Smokeless Tobacco Status: No Alcohol use: none Drug use: none - Family History Mother Living Status: Hx Family Cardiac Disorders: Yes Hx Family Respiratory Disorders: Yes Hx Family Cancer: Yes Medications and Allergies Ergocalciferol (VITAMIN D2) [Vitamin D2] 50,000 unit PO ARAUZ 07/06/18 [History] Tizanidine HCl [Zanaflex] 4 mg PO BID PRN #60 capsule 09/13/18 [Rx] Magnesium Oxide [Mag-Ox] 400 mg PO BID #60 tablet 10/13/18 [Rx] Dronabinol [Marinol] 10 mg PO BID 30 Days #60 capsule 11/03/18 [Rx] Loperamide [Imodium] 2 mg PO AD PRN #60 capsule 11/29/18 [Rx] Dabigatran Etexilate Mesylate [Pradaxa] 150 mg PO BID #180 capsule 01/26/19 [Rx] Potassium Chloride [K-Tab ER] 20 meq PO BID #120 tablet.er 04/06/19 [Rx] Omeprazole [PriLOSEC] 20 mg PO DAILY #90 capsule. 04/20/19 [Rx] Celecoxib [Celebrex] 200 mg PO DAILY 05/01/19 [History] Diphenoxylate/Atropine [Lomotil 2.5 mg/0.025 mg] 2 tab PO TID PRN 05/01/19 [History] Lidocaine/Prilocaine CREAM [Emla] 1 appl TP AD 05/01/19 [History] Calcium Carbonate [Tums] 1,000 mg PO TID tab.chew 05/04/19 [Rx] HYDROcodone/Acet 5/325 mg [[place] 5-325 mg] 1 tab PO Q6H PRN 14 Days #120 tab 05/04/19 [Rx] Ondansetron [Zofran ODT] 8 mg SL TID PRN 30 Days #90 tab.rapdis 05/04/19 [Rx] Promethazine [Phenergan] 25 mg PO Q6HR PRN #30 tablet 05/04/19 [Rx] Gabapentin [Neurontin] 300 mg PO TID #90 capsule 05/11/19 [Rx] Allergy/AdvReac Type Severity Reaction Status Date / Time No Known Allergies Allergy Verified 05/01/19 09:47 All Systems Review: The remainder of the systems were reviewed and are negative Exam Vital Signs, Last 4 Hours Temp Pulse Resp BP Pulse Ox 05/18/19 15:25 97.8 F 85 16 123/82 96 General: Present: Conversant, No Apparent Distress HEENT: Present: Atraumatic, Normocephaly Neck: Absent: JVD Neuro: Present: Alert and responsive, No focal deficits noted Abdomen: Present: Soft, Non-tender. Absent: Masses Vascular: Present: Normal capillary refill, Pulse, normal, Edema (Mild nonpitting left lower extremity edema), Color/Temperature (Color and temperature lower extremities is normal.). Absent: Cyanosis Skin: Present: No rashes noted on visualized skin Consult Discharge Plan - Plan Referrals: Jacey Ochoa [Primary Care Provider] -
[2019-05-18] MEDS ORDERED: Benzocaine 20% 12 APPL GEL..GRAM. TP PRN (19:17)
[2019-05-18] MEDS ORDERED: *HR* LORazepam 2 MG/ML VIAL IVP ONE (19:21)
[2019-05-18 19:39] LABS: Bilirubin,Urine Negative (Negative); Blood,Urine Large (Negative); Clarity,Urine Turbid (Clear); Color,Urine Yellow (Yellow); Glucose,Urine (UA) Normal (Normal); Ketones,Urine Negative (Negative); Leukocyte Esterase,Urine Large (Negative); Nitrite,Urine Negative (Negative); Protein,Urine 30 mg/dL (Neg-Trace); Specific Gravity,Urine > 1.030 (1.010-1.025); Urobilinogen,Urine Normal (Normal)
[2019-05-18 19:42] LABS: Bacteria,Urine Few per hpf (None-Few); Hyaline Casts,Urine None Seen per lpf (None-Few); Squamous Epithelial Cell,Urine Many per lpf (None-Few); WBC,Urine TNTC per hpf (0-3)
[2019-05-18] MEDS: Magnesium Oxide 400 MG TABLET PO SCH (20:06)
[2019-05-18] MEDS: Gabapentin 300 MG CAPSULE PO SCH (20:06)
[2019-05-19] MEDS: *HR* HYDROcodone/Acet 5/325 mg TABLET PO PRN (03:32)
[2019-05-19] MEDS ORDERED: *HR* Promethazine 25 MG/ML VIAL ONE (03:42)
[2019-05-19] MEDS: *HR* Promethazine 25 MG/ML VIAL IVP PRN (03:58)
[2019-05-19 06:06] LABS: Basophils % 0.2 %; Eosinophils # 0.1 K/mcL (0.0-0.6); Hematocrit 33.1 % (35.3-44.9); Hemoglobin 10.2 g/dL (11.5-15.4); Immature Granulocytes % 0.4 % (0-4); Lymphocytes # 0.2 K/mcL (0.6-4.6); Mean Corpuscular HGB Conc 30.8 g/dL (31.6-35.5); Mean Corpuscular Hemoglobin 27.3 pg (28.0-33.3); Mean Corpuscular Volume 88.7 fL (83.0-100.0); Mean Platelet Volume 8.7 fL (9.4-12.4); Monocytes # 0.6 K/mcL (0.0-1.3); Monocytes % 5.9 %; Neutrophils # 8.4 K/mcL (1.6-8.9); Platelet Count 303 K/mcL (140-400); Red Blood Count 3.73 M/mcL (3.82-4.97); Red Cell Distribution Width 18.9 % (11.5-14.5); Segmented Neutrophils % 90.5 %; White Blood Count 9.3 K/mcL (4.3-11.1)
[2019-05-19 06:08] LABS: INR 1.2; Prothrombin Time 13.2 Seconds (9.4-12.1)
[2019-05-19 06:17] LABS: BUN/Creatinine Ratio 17 (6-26); Blood Urea Nitrogen 8 mg/dL (6-20); Calcium 8.6 mg/dL (8.6-10.3); Carbon Dioxide 27 mEq/L (23-29); Chloride 99 mEq/L (98-107); Glucose 117 mg/dL (70-105); Osmolality,Calculated 293 (280-300); Potassium 3.3 mEq/L (3.5-5.1); Sodium 142 mEq/L (136-145); eGFR For African Americans > 60 (> 60); eGFR For Non-African Americans > 60 (> 60)
[2019-05-19 06:42] LABS: Anisocytosis 1+ (Not Present); Platelet Estimate Normal (Normal)
[2019-05-19 06:43] LABS: Hypochromasia Present (Not Present)
[2019-05-19] MEDS ORDERED: Isovue-300 200 mL Infus..BTL ONE (08:21)
[2019-05-19] MEDS ORDERED: *HR* FentaNYL (PF) 100 MCG/2 ML VIAL ONE (08:27)
[2019-05-19] MEDS ORDERED: *HR* Midazolam HCl 2 MG/2 ML VIAL ONE (08:27)
[2019-05-19] MEDS ORDERED: 0.9 % Sodium Chloride 1,000 ML ONE (08:27)
--- NOTE | 2019-05-19 08:34 | Pre-Sedation Evaluation ---
Pre-sedation evaluation - Pre-sedation checklist Procedure: Port insertion Recent Vitals: Last Vital Signs Temp 98.0 F 05/19/19 07:17 Pulse 95 05/19/19 07:17 Resp 19 05/19/19 07:17 BP 122/81 05/19/19 07:17 Pulse Ox 97 05/19/19 07:17 H&P (including ROS) documented in medical record: Yes Previous reaction to sedatives/anesthetics: No Dietary Status: NPO after Midnight Dentition: No loose teeth or bridges ASA Classification *see protocol: CLASS IV-Severe systemic disease/constant threat to pt's life Plan of Care: Pt appropriate candidate for procedure/moderate/conscious sedation, Risks/benefits of procedure/sedation discussed w/ patient/family
[2019-05-19] MEDS ORDERED: Acetaminophen 325 MG TABLET PO PRN (09:04)
--- NOTE | 2019-05-19 09:04 | Procedure Note ---
Date of procedure: 05/19/19 Pre-op diagnosis: Left lower extremity DVT, rectal bleeding, rectal carcinoma Post-op diagnosis: same Procedure: Inferior venacavogram IVC filter placement Anesthesia: MAC Surgeon: Maverick Olmos Was there an assistant in nursing present: No Estimated blood loss (cc): 0 Specimen: 0 Pathology: none sent Condition: stable Disposition: floor
[2019-05-19] MEDS: Celecoxib 200 MG CAPSULE PO SCH (11:10)
[2019-05-19] MEDS: Magnesium Oxide 400 MG TABLET PO SCH ×2 (11:11→20:49)
[2019-05-19] MEDS: Gabapentin 300 MG CAPSULE PO SCH ×3 (11:11→20:49)
--- NOTE | 2019-05-19 15:56 | Internal Med Progress Note ---
Hospitalist Progress Note - Encounter Date of Encounter: 05/19/19 Time of Encounter: 15:53 - Subjective Interval History: Patient was seen and examined at bedside she currently underwent IVC filter placement today anticipate going to IR and having abdominal abscess drained. Discussed treatment plan the patient verbalized understanding - Exam Vitals: Temp Pulse Resp BP Pulse Ox 98.3 F 88 16 120/79 96 05/19/19 10:20 05/19/19 10:20 05/19/19 10:20 05/19/19 10:20 05/19/19 10:20 Exam: General patient appears cachectic Skin: Free of rash and discoloration. Eyes: Sclera is white. There is no discharge from eyes. ENMT: Oral/pharyngeal mucosa is normal in appearance. There is no discharge from nose or ears. Respiratory: Normal breath sounds with no crackles and wheezes bilaterally. CV: Heart is regular with no gallop or murmur. GI: Abdomen is flat and soft with no palpable mass or visceromegaly. : There is no tenderness in patient's flanks bilaterally. Neuro exam: He has good strength in upper and lower extremities. He has normal eye movements. Psychiatric: He has normal affect. His thought process is appropriate to the situation. - Assessment and Plan (1) GERD (gastroesophageal reflux disease) Current Visit: No Status: Acute Assessment and Plan: Continue PPI (2) Severe protein-calorie malnutrition Current Visit: No Status: Chronic Assessment and Plan: Consult nutritional services concerning dietary supplements (3) Rectal bleeding Current Visit: Yes Status: Acute Assessment and Plan: Due to the extension of rectal tumor and patient on Pradaxa for DVT. General Surgery was consulted in ED and patient declined a recommended diverting colostopy and pelvic drainage. Treatment for bleeding will be limited, but holding Pradaxa would be most imperative but places her at high risk of another DVT or other VTE. - Hold Pradaxa - Consult Vascular Surgery for potential placement of IV filter - Cycle H&H, monitor vital signs closely - Oncology consulted, recommendations appreciated. 05/19 We will continue to hold Pradaxa Vascular surgery has been consulted and IV filter has been placed Monitor H&H currently appears stable Oncology has been consulted and appreciate recommendations (4) Anemia Current Visit: Yes Status: Acute Assessment and Plan: At baseline. Due to iron deficiency and also anemia of chronic disease. Repeat H&H as patient was having significant bleed earlier. 05/19 Monitor for bleeding-currently H&H is stable continue to monitor closely (5) Rectovaginal fistula Current Visit: Yes Status: Acute Assessment and Plan: Accu surgery was consulted recommending diverging colostomy and pelvic drainage to treat rectovaginal fistula and pelvic abscess however patient has declined at this time We will consult IR concerning drainage of abscess (6) Pelvic abscess Current Visit: Yes Status: Acute Assessment and Plan: Patient does not meet sepsis criteria. Will need drained by IR - Patient had Pradaxa this morning before coming to ED. Will hold Pradaxa and consult IR tomorrow since she received anticoagulation today. Continue Vanc/Zosyn. 05/19 We will continue with vancomycin and Zosyn Continue to hold Pradaxa-we will consult IR for abscess drainage (7) Hx of deep venous thrombosis Current Visit: Yes Status: Acute Assessment and Plan: On Pradaxa, but will be held due to BRBPR. Vascular Surgery consulted, patient may benefit from IVC filter since she is having bleeding with Pradaxa now. 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 On chemotherapy. Oncology consulted. - Time Spent with Patient Total time spent is greater than 50% in coordination of care (as documented) at patient's floor/unit and/or counseling patient: Internal Medicine: Result - Labs CBC & Chem 7: 05/19/19 05:30 05/19/19 05:30 Labs: Short CBC 05/19/19 Range/Units 05:30 WBC 9.3 (4.3-11.1) K/mcL Hgb 10.2 L (11.5-15.4) g/dL Hct 33.1 L (35.3-44.9) % Plt Count 303 (140-400) K/mcL Neutrophils # 8.4 (1.6-8.9) K/mcL BMP 05/19/19 05:30 Sodium 142 Potassium 3.3 L Chloride 99 Carbon Dioxide 27 BUN 8 Creatinine 0.46 L Glucose 117 H Calcium 8.6 Urine 05/18/19 Range/Units 18:37 Urine Color Yellow (Yellow) Urine Clarity Turbid A (Clear) Urine pH 7.0 (5.0-8.0) pH Units Ur Specific [place] > 1.030 H (1.010-1.025) Urine Protein 30 H (Neg-Trace) mg/dL Urine Glucose (UA) Normal (Normal) mg/dL - ABG Interpretation ABG results: PT/INR, D-dimer PT 13.2 Seconds (9.4-12.1) H 05/19/19 05:30 - Impressions Impressions Abdomen/Pelvis CT 05/18/19 08:48 IMPRESSION: 1. Rectovaginal fistula is more evident on the current study compared to prior study. Heterogeneous extraluminal fluid collection with foci of gas in the right posterior pelvic sidewall measures about 3.3 x 2 cm consistent with abscess. Additionally, there is right perirectal extraluminal fluid collection which measures about 2 x 1.3 cm. 2. Increase in size of right lower lobe lung nodule suspicious for worsening metastatic pulmonary nodule. 3. Stable presacral soft tissue nodule, presumably metastatic lymphadenopathy. D/ / 05/18/2019 11:30:55 Joselyn Lemons MD / [email or web address] Interpreting Provider: Joselyn Lemons MD Consult Discharge Plan - Plan Referrals: Jacey Ochoa [Primary Care Provider] - (1) GERD (gastroesophageal reflux disease) Qualifiers: Qualified Code(s): K21.9 - Gastro-esophageal reflux disease without esophagitis (4) Anemia Qualifiers: Anemia type: unspecified type Qualified Code(s): D64.9 - Anemia, unspecified
[2019-05-19] MEDS: Piperacillin/Tazobactam 3.375 GM in 0.9 % Sodium Chloride Mini Bag 100 ML IVPB SCH ×2 (18:14→23:50)
[2019-05-20 04:23] LABS: Basophils % 0.3 %; Eosinophils # 0.2 K/mcL (0.0-0.6); Eosinophils % 2.4 %; Hematocrit 29.3 % (35.3-44.9); Immature Granulocytes % 0.1 % (0-4); Lymphocytes # 0.3 K/mcL (0.6-4.6); Lymphocytes % 4.3 %; Mean Corpuscular HGB Conc 30.7 g/dL (31.6-35.5); Mean Corpuscular Hemoglobin 27.4 pg (28.0-33.3); Mean Corpuscular Volume 89.3 fL (83.0-100.0); Mean Platelet Volume 8.5 fL (9.4-12.4); Monocytes # 0.6 K/mcL (0.0-1.3); Monocytes % 8.4 %; Neutrophils # 5.7 K/mcL (1.6-8.9); Platelet Count 265 K/mcL (140-400); Red Blood Count 3.28 M/mcL (3.82-4.97); Red Cell Distribution Width 19.1 % (11.5-14.5); Segmented Neutrophils % 84.5 %; White Blood Count 6.8 K/mcL (4.3-11.1)
[2019-05-20 04:41] LABS: BUN/Creatinine Ratio 18 (6-26); Blood Urea Nitrogen 9 mg/dL (6-20); Calcium 7.8 mg/dL (8.6-10.3); Carbon Dioxide 27 mEq/L (23-29); Chloride 103 mEq/L (98-107); Glucose 107 mg/dL (70-105); Osmolality,Calculated 281 (280-300); Potassium 3.7 mEq/L (3.5-5.1); Sodium 136 mEq/L (136-145); eGFR For African Americans > 60 (> 60); eGFR For Non-African Americans > 60 (> 60)
[2019-05-20] MEDS: Magnesium Oxide 400 MG TABLET PO SCH ×2 (08:40→20:30)
[2019-05-20] MEDS: Gabapentin 300 MG CAPSULE PO SCH ×3 (08:40→20:30)
[2019-05-20] MEDS: Celecoxib 200 MG CAPSULE PO SCH (08:40)
[2019-05-20] MEDS: Piperacillin/Tazobactam 3.375 GM in 0.9 % Sodium Chloride Mini Bag 100 ML IVPB SCH ×2 (08:41→15:34)
--- NOTE | 2019-05-20 15:44 | Internal Med Progress Note ---
Hospitalist Progress Note - Encounter Date of Encounter: 05/20/19 Time of Encounter: 12:00 - Subjective Interval History: Patient was seen and examined at bedside she did have one bowel movement this morning that had dark red blood. Hemoglobin has been stable we will continue to monitor at this time - Exam Vitals: Temp Pulse Resp BP Pulse Ox 98.3 F 94 16 112/74 98 05/20/19 11:14 05/20/19 11:14 05/20/19 11:14 05/20/19 11:14 05/20/19 11:14 Exam: General patient appears cachectic Skin: Free of rash and discoloration. Eyes: Sclera is white. There is no discharge from eyes. ENMT: Oral/pharyngeal mucosa is normal in appearance. There is no discharge from nose or ears. Respiratory: Normal breath sounds with no crackles and wheezes bilaterally. CV: Heart is regular with no gallop or murmur. GI: Abdomen is flat and soft with no palpable mass or visceromegaly. : There is no tenderness in patient's flanks bilaterally. Neuro exam: He has good strength in upper and lower extremities. He has normal eye movements. Psychiatric: He has normal affect. His thought process is appropriate to the situation. - Assessment and Plan (1) GERD (gastroesophageal reflux disease) Current Visit: No Status: Acute Assessment and Plan: Continue PPI (2) Severe protein-calorie malnutrition Current Visit: No Status: Chronic Assessment and Plan: Consult nutritional services concerning dietary supplements Continue with Marinol (3) Rectal bleeding Current Visit: Yes Status: Acute Assessment and Plan: Due to the extension of rectal tumor and patient on Pradaxa for DVT. General Surgery was consulted in ED and patient declined a recommended diverting colostopy and pelvic drainage. Treatment for bleeding will be limited, but holding Pradaxa would be most imperative but places her at high risk of another DVT or other VTE. - Hold Pradaxa - Consult Vascular Surgery for potential placement of IV filter - Cycle H&H, monitor vital signs closely - Oncology consulted, recommendations appreciated. 05/19 We will continue to hold Pradaxa Vascular surgery has been consulted and IV filter has been placed Monitor H&H currently appears stable Oncology has been consulted and appreciate recommendations 05/20 Hemoglobin is 9 today she did have one bloody stool this a.m. continue to monitor H&H and transfuse as needed Into the hold Pradaxa Patient has IVC filter placed Oncology has been consulted and appreciate recommendations SCDs (4) Anemia Current Visit: Yes Status: Acute Assessment and Plan: At baseline. Due to iron deficiency and also anemia of chronic disease. Repeat H&H as patient was having significant bleed earlier. 05/19 Monitor for bleeding-currently H&H is stable continue to monitor closely 05/20 Hemoglobin is 9 today she did have one bloody stool today continue to monitor H&H and transfuse as needed (5) Rectovaginal fistula Current Visit: Yes Status: Acute Assessment and Plan: Accu surgery was consulted recommending diverging colostomy and pelvic drainage to treat rectovaginal fistula and pelvic abscess however patient has declined at this time We will consult IR concerning drainage of abscess (6) Pelvic abscess Current Visit: Yes Status: Acute Assessment and Plan: Patient does not meet sepsis criteria. Will need drained by IR - Patient had Pradaxa this morning before coming to ED. Will hold Pradaxa and consult IR tomorrow since she received anticoagulation today. Continue Vanc/Zosyn. 05/19 We will continue with vancomycin and Zosyn Continue to hold Pradaxa-we will consult IR for abscess drainage 05/20 cont with vanc and zosyn cont to hold pradaxa -IR consulted for abscess drainage (7) Hx of deep venous thrombosis Current Visit: Yes Status: Acute Assessment and Plan: On Pradaxa, but will be held due to BRBPR. Vascular Surgery consulted, patient may benefit from IVC filter since she is having bleeding with Pradaxa now. Foot SCD (8) Metastatic colorectal cancer Current Visit: Yes Status: Acute Assessment and Plan: Stage IV rectal cancer with lung metastatic disease. On chemotherapy. Oncology consulted. - Time Spent with Patient Total time spent is greater than 50% in coordination of care (as documented) at patient's floor/unit and/or counseling patient: Internal Medicine: Result - Labs CBC & Chem 7: 05/20/19 04:00 05/20/19 04:00 Labs: Short CBC 05/20/19 Range/Units 04:00 WBC 6.8 (4.3-11.1) K/mcL Hgb 9.0 L (11.5-15.4) g/dL Hct 29.3 L (35.3-44.9) % Plt Count 265 (140-400) K/mcL Neutrophils # 5.7 (1.6-8.9) K/mcL BMP 05/20/19 04:00 Sodium 136 Potassium 3.7 Chloride 103 Carbon Dioxide 27 BUN 9 Creatinine 0.50 L Glucose 107 H Calcium 7.8 L - ABG Interpretation ABG results: PT/INR, D-dimer PT 13.2 Seconds (9.4-12.1) H 05/19/19 05:30 Consult Discharge Plan - Plan Referrals: Jacey Ochoa [Primary Care Provider] - (1) GERD (gastroesophageal reflux disease) Qualifiers: Qualified Code(s): K21.9 - Gastro-esophageal reflux disease without esophagitis (4) Anemia Qualifiers: Anemia type: unspecified type Qualified Code(s): D64.9 - Anemia, unspecified
[2019-05-21] MEDS: Piperacillin/Tazobactam 3.375 GM in 0.9 % Sodium Chloride Mini Bag 100 ML IVPB SCH ×4 (00:14→23:46)
[2019-05-21] MEDS: Ondansetron 4 MG/2 ML VIAL IVP PRN ×2 (01:56→08:36)
[2019-05-21 04:29] LABS: Basophils % 0.1 %; Eosinophils # 0.2 K/mcL (0.0-0.6); Eosinophils % 1.9 %; Hematocrit 28.9 % (35.3-44.9); Hemoglobin 8.8 g/dL (11.5-15.4); Immature Granulocytes % 0.2 % (0-4); Lymphocytes # 0.2 K/mcL (0.6-4.6); Mean Corpuscular HGB Conc 30.4 g/dL (31.6-35.5); Mean Corpuscular Hemoglobin 27.6 pg (28.0-33.3); Mean Corpuscular Volume 90.6 fL (83.0-100.0); Monocytes # 0.5 K/mcL (0.0-1.3); Monocytes % 5.5 %; Neutrophils # 8.4 K/mcL (1.6-8.9); Platelet Count 268 K/mcL (140-400); Red Blood Count 3.19 M/mcL (3.82-4.97); Red Cell Distribution Width 18.9 % (11.5-14.5); Segmented Neutrophils % 90.3 %; White Blood Count 9.3 K/mcL (4.3-11.1)
[2019-05-21 04:47] LABS: BUN/Creatinine Ratio 20 (6-26); Blood Urea Nitrogen 8 mg/dL (6-20); Calcium 7.6 mg/dL (8.6-10.3); Carbon Dioxide 27 mEq/L (23-29); Chloride 106 mEq/L (98-107); Glucose 122 mg/dL (70-105); Osmolality,Calculated 290 (280-300); Potassium 3.1 mEq/L (3.5-5.1); Sodium 140 mEq/L (136-145); eGFR For African Americans > 60 (> 60); eGFR For Non-African Americans > 60 (> 60)
[2019-05-21 04:52] LABS: Platelet Estimate Normal (Normal)
[2019-05-21] MEDS: Celecoxib 200 MG CAPSULE PO SCH (08:36)
[2019-05-21] MEDS: Magnesium Oxide 400 MG TABLET PO SCH ×2 (08:36→20:11)
[2019-05-21] MEDS: Gabapentin 300 MG CAPSULE PO SCH ×3 (08:36→20:11)
[2019-05-21] MEDS: *HR* HYDROcodone/Acet 5/325 mg TABLET PO PRN ×2 (08:36→14:10)
[2019-05-21] MEDS ORDERED: Potassium Chloride Elixir 20 MEQ/15 ML UDC PO ONE (10:39)
--- NOTE | 2019-05-21 12:31 | Internal Med Progress Note ---
Hospitalist Progress Note - Encounter Date of Encounter: 05/21/19 Time of Encounter: 12:29 - Subjective Interval History: Patient was seen and examined at bedside. She states that she did have 1 bowel movement today that had dark blood in it. Hemoglobin 8.8. She will BMP after midnight for abscess drainage in the morning by IR. Patient verbalizes un derstanding of treatment plan - Exam Vitals: Temp Pulse Resp BP Pulse Ox 98.0 F 92 16 106/72 93 05/21/19 11:04 05/21/19 11:04 05/21/19 11:04 05/21/19 11:04 05/21/19 11:04 Exam: General patient appears cachectic Skin: Free of rash and discoloration. Eyes: Sclera is white. There is no discharge from eyes. ENMT: Oral/pharyngeal mucosa is normal in appearance. There is no discharge from nose or ears. Respiratory: Normal breath sounds with no crackles and wheezes bilaterally. CV: Heart is regular with no gallop or murmur. GI: Abdomen is flat and soft with no palpable mass or visceromegaly. : There is no tenderness in patient's flanks bilaterally. Neuro exam: He has good strength in upper and lower extremities. He has normal eye movements. Psychiatric: He has normal affect. His thought process is appropriate to the situation. - Assessment and Plan (1) GERD (gastroesophageal reflux disease) Current Visit: No Status: Acute Assessment and Plan: Continue PPI (2) Severe protein-calorie malnutrition Current Visit: No Status: Chronic Assessment and Plan: Consult nutritional services concerning dietary supplements Continue with Marinol (3) Rectal bleeding Current Visit: Yes Status: Acute Assessment and Plan: Due to the extension of rectal tumor and patient on Pradaxa for DVT. General Surgery was consulted in ED and patient declined a recommended diverting co lostopy and pelvic drainage. Treatment for bleeding will be limited, but holding Pradaxa would be most imperative but places her at high risk of another DVT or other VTE. - Hold Pradaxa - Consult Vascular Surgery for potential placement of IV filter - Cycle H&H, monitor vital signs closely - Oncology consulted, recommendations appreciated. 05/19 We will continue to hold Pradaxa Vascular surgery has been consulted and IV filter has been placed Monitor H&H currently appears stable Oncology has been consulted and appreciate recommendations 05/20 Hemoglobin is 9 today she did have one bloody stool this a.m. continue to monitor H&H and transfuse as needed Into the hold Pradaxa Patient has IVC filter placed Oncology has been consulted and appreciate recommendations SCDs 05/21 HEENT: 8.8 today had one dark bloody stool this a.m. continue to monitor H&H and transfuse as needed Continuehold Pradaxa Patient has IVC filter placed Oncology has been consulted and appreciate recommendations SCDs (4) Anemia Current Visit: Yes Status: Acute Assessment and Plan: At baseline. Due to iron deficiency and also anemia of chronic disease. Repeat H&H as patient was having significant bleed earlier. 05/19 Monitor for bleeding-currently H&H is stable continue to monitor closely 05/20 Hemoglobin is 9 today she did have one bloody stool today continue to monitor H&H and transfuse as needed 12/22 Hemoglobin stable at 8.8 continues to have bloody stools monitor H&H and transfuse as needed (5) Rectovaginal fistula Current Visit: Yes Status: Acute Assessment and Plan: Accu surgery was consulted recommending diverging colostomy and pelvic drainage to treat rectovaginal fistula and pelvic abscess however patient has declined at this time We will consult IR concerning drainage of abscess (6) Pelvic abscess Current Visit: Yes Status: Acute Assessment and Plan: Patient does not meet sepsis criteria. Will need drained by IR - Patient had Pradaxa this morning before coming to ED. Will hold Pradaxa and consult IR tomorrow since she received anticoagulation today. Continue Vanc/Zosyn. 05/19 We will continue with vancomycin and Zosyn Continue to hold Pradaxa-we will consult IR for abscess drainage 05/20 cont with vanc and zosyn cont to hold pradaxa -IR consulted for abscess drainage 05/21 Continue vancomycin and Zosyn T the hold Pradaxa patient will be nothing by mouth after midnight for abscess drainage by IR in the a.m. (7) Hx of deep venous thrombosis Current Visit: Yes Status: Acute Assessment and Plan: On Pradaxa, but will be held due to BRBPR. Vascular Surgery consulted, patient may benefit from IVC filter since she is having bleeding with Pradaxa now. Foot SCD (8) Metastatic colorectal cancer Current Visit: Yes Status: Acute Assessment and Plan: Stage IV rectal cancer with lung metastatic disease. On chemotherapy. Oncology consulted. - Time Spent with Patient Total time spent is greater than 50% in coordination of care (as documented) at patient's floor/unit and/or counseling patient: Internal Medicine: Result - Labs CBC & Chem 7: 05/21/19 04:00 05/21/19 04:00 Labs: Short CBC 05/21/19 Range/Units 04:00 WBC 9.3 (4.3-11.1) K/mcL Hgb 8.8 L (11.5-15.4) g/dL Hct 28.9 L (35.3-44.9) % Plt Count 268 (140-400) K/mcL Neutrophils # 8.4 (1.6-8.9) K/mcL BMP 05/21/19 04:00 Sodium 140 Potassium 3.1 L Chloride 106 Carbon Dioxide 27 BUN 8 Creatinine 0.40 L Glucose 122 H Calcium 7.6 L - ABG Interpretation ABG results: PT/INR, D-dimer PT 13.2 Seconds (9.4-12.1) H 05/19/19 05:30 Consult Discharge Plan - Plan Referrals: Jacey Ochoa [Primary Care Provider] - (1) GERD (gastroesophageal reflux disease) Qualifiers: Qualified Code(s): K21.9 - Gastro-esophageal reflux disease without esophagitis (4) Anemia Qualifiers: Anemia type: unspecified type Qualified Code(s): D64.9 - Anemia, unspecified
[2019-05-21] MEDS: *HR* Promethazine 25 MG/ML VIAL IVP PRN (14:08)
[2019-05-22 03:44] LABS: Basophils % 0.2 %; Eosinophils # 0.2 K/mcL (0.0-0.6); Eosinophils % 4.3 %; Hematocrit 29.2 % (35.3-44.9); Hemoglobin 8.8 g/dL (11.5-15.4); Immature Granulocytes % 0.4 % (0-4); Lymphocytes # 0.3 K/mcL (0.6-4.6); Mean Corpuscular HGB Conc 30.1 g/dL (31.6-35.5); Mean Corpuscular Hemoglobin 27.2 pg (28.0-33.3); Mean Corpuscular Volume 90.1 fL (83.0-100.0); Mean Platelet Volume 8.5 fL (9.4-12.4); Monocytes # 0.5 K/mcL (0.0-1.3); Monocytes % 8.5 %; Neutrophils # 4.6 K/mcL (1.6-8.9); Platelet Count 272 K/mcL (140-400); Red Blood Count 3.24 M/mcL (3.82-4.97); Red Cell Distribution Width 19.1 % (11.5-14.5); Segmented Neutrophils % 81.6 %; White Blood Count 5.6 K/mcL (4.3-11.1)
[2019-05-22 03:51] LABS: INR 1.1; Prothrombin Time 12.3 Seconds (9.4-12.1)
[2019-05-22 04:04] LABS: BUN/Creatinine Ratio 15 (6-26); Blood Urea Nitrogen 8 mg/dL (6-20); Calcium 7.7 mg/dL (8.6-10.3); Carbon Dioxide 27 mEq/L (23-29); Chloride 105 mEq/L (98-107); Glucose 99 mg/dL (70-105); Osmolality,Calculated 290 (280-300); Potassium 3.4 mEq/L (3.5-5.1); Sodium 141 mEq/L (136-145); eGFR For African Americans > 60 (> 60); eGFR For Non-African Americans > 60 (> 60)
[2019-05-22] MEDS ORDERED: Aminoglycoside Consult 1 EACH MC ONE (07:56)
[2019-05-22] MEDS: Gabapentin 300 MG CAPSULE PO SCH ×3 (08:39→20:48)
[2019-05-22] MEDS: Magnesium Oxide 400 MG TABLET PO SCH ×2 (08:39→20:48)
[2019-05-22] MEDS: Celecoxib 200 MG CAPSULE PO SCH (08:39)
[2019-05-22] MEDS: Piperacillin/Tazobactam 3.375 GM in 0.9 % Sodium Chloride Mini Bag 100 ML IVPB SCH ×2 (08:40→16:13)
--- NOTE | 2019-05-22 11:24 | Internal Med Progress Note ---
Hospitalist Progress Note - Encounter Date of Encounter: 05/22/19 Time of Encounter: 11:24 - Subjective Interval History: Was seen and examined at bedside-with interventional radiologist this a.m. concerning IR drainage of abscess and drain placement of fistula- Dr Mcmahan reviewed CT scans and felt that placing drain could potentially caus e more harm, she could develop another fistula - and as long as she has natural drainage from vaginal opening and she is not symptomatic with no white count or fever ,he would like to defer placing drain at this time - he will discuss options with the patient. - Exam Vitals: Temp Pulse Resp BP Pulse Ox 98.0 F 87 16 117/74 97 05/22/19 11:05 05/22/19 11:05 05/22/19 11:05 05/22/19 11:05 05/22/19 11:05 Exam: General patient appears cachectic Skin: Free of rash and discoloration. Eyes: Sclera is white. There is no discharge from eyes. ENMT: Oral/pharyngeal mucosa is normal in appearance. There is no discharge from nose or ears. Respiratory: Normal breath sounds with no crackles and wheezes bilaterally. CV: Heart is regular with no gallop or murmur. GI: Abdomen is flat and soft with no palpable mass or visceromegaly. : There is no tenderness in patient's flanks bilaterally. Neuro exam: He has good strength in upper and lower extremities. He has normal eye movements. Psychiatric: He has normal affect. His thought process is appropriate to the situation. - Assessment and Plan (1) GERD (gastroesophageal reflux disease) Current Visit: No Status: Acute Assessment and Plan: Continue PPI (2) Severe protein-calorie malnutrition Current Visit: No Status: Chronic Assessment and Plan: Consult nutritional services concerning dietary supplements Continue with Marinol (3) Rectal bleeding Current Visit: Yes Status: Acute Assessment and Plan: Due to the extension of rectal tumor and patient on Pradaxa for DVT. General Surgery was consulted in ED and patient declined a recommended diverting colostopy and pelvic drainage. Treatment for bleeding will be limited, but holding Pradaxa would be most imperative but places her at high risk of another DVT or other VTE. - Hold Pradaxa - Consult Vascular Surgery for potential placement of IV filter - Cycle H&H, monitor vital signs closely - Oncology consulted, recommendations appreciated. 05/19 We will continue to hold Pradaxa Vascular surgery has been consulted and IV filter has been placed Monitor H&H currently appears stable Oncology has been consulted and appreciate recommendations 05/20 Hemoglobin is 9 today she did have one bloody stool this a.m. continue to monitor H&H and transfuse as needed Into the hold Pradaxa Patient has IVC filter placed Oncology has been consulted and appreciate recommendations SCDs 05/21 HEENT: 8.8 today had one dark bloody stool this a.m. continue to monitor H&H and transfuse as needed Continuehold Pradaxa Patient has IVC filter placed Oncology has been consulted and appreciate recommendations SCDs 05/22 no active bleeding noted Hold pradaxa IVC filter placed SCD (4) Anemia Current Visit: Yes Status: Acute Assessment and Plan: At baseline. Due to iron deficiency and also anemia of chronic disease. Repeat H&H as patient was having significant bleed earlier. 05/19 Monitor for bleeding-currently H&H is stable continue to monitor closely 05/20 Hemoglobin is 9 today she did have one bloody stool today continue to monitor H&H and transfuse as needed 12/22 Hemoglobin stable at 8.8 continues to have bloody stools monitor H&H and transfuse as needed 12/23 Hemoglobin continues to be stable 8.8 has had some dark bloody stools (5) Rectovaginal fistula Current Visit: Yes Status: Acute Assessment and Plan: Accu surgery was consulted recommending diverging colostomy and pelvic drainage to treat rectovaginal fistula and pelvic abscess however patient has declined at this time We will consult IR concerning drainage of abscess 05/22 Acute surgery was consulted recommending diverging colostomy and pelvic drainage to treat rectovaginal fistula and pelvic abscess however patient has declined at this time IR consulted - unable to drain abscess or place drain in fistula - IR will speak with patient concerning options consult ID for ATB coverage (6) Pelvic abscess Current Visit: Yes Status: Acute Assessment and Plan: Patient does not meet sepsis criteria. Will need drained by IR - Patient had Pradaxa this morning before coming to ED. Will hold Pradaxa and consult IR tomorrow since she received anticoagulation today. Continue Vanc/Zosyn. 05/19 We will continue with vancomycin and Zosyn Continue to hold Pradaxa-we will consult IR for abscess drainage 05/20 cont with vanc and zosyn cont to hold pradaxa -IR consulted for abscess drainage 05/21 Continue vancomycin and Zosyn T the hold Pradaxa patient will be nothing by mouth after midnight for abscess drainage by IR in the a.m. 05/22 cont with Vanc and zosyn ID consulted for ATB coverage IR unable to drain abscess (7) Hx of deep venous thrombosis Current Visit: Yes Status: Acute Assessment and Plan: On Pradaxa, but will be held due to BRBPR. Vascular Surgery consulted, patient may benefit from IVC filter since she is having bleeding with Pradaxa now. Foot SCD 05/22 IVC filter placed per vascular cont foot pumps oncology consulted and appreciate recommendations (8) Metastatic colorectal cancer Current Visit: Yes Status: Acute Assessment and Plan: Stage IV rectal cancer with lung metastatic disease. On chemotherapy. Oncology consulted appreciate recommendations - Time Spent with Patient Total time spent is greater than 50% in coordination of care (as documented) at patient's floor/unit and/or counseling patient: Internal Medicine: Result - Labs CBC & Chem 7: 05/22/19 03:27 05/22/19 03:27 Labs: Short CBC 05/22/19 Range/Units 03:27 WBC 5.6 (4.3-11.1) K/mcL Hgb 8.8 L (11.5-15.4) g/dL Hct 29.2 L (35.3-44.9) % Plt Count 272 (140-400) K/mcL Neutrophils # 4.6 (1.6-8.9) K/mcL BMP 05/22/19 03:27 Sodium 141 Potassium 3.4 L Chloride 105 Carbon Dioxide 27 BUN 8 Creatinine 0.52 L Glucose 99 Calcium 7.7 L - ABG Interpretation ABG results: PT/INR, D-dimer PT 12.3 Seconds (9.4-12.1) H 05/22/19 03:27 - Impressions Impressions Abdomen/Pelvis CT 05/18/19 08:48 IMPRESSION: 1. Rectovaginal fistula is more evident on the current study compared to prior study. Heterogeneous extraluminal fluid collection with foci of gas in the right posterior pelvic sidewall measures about 3.3 x 2 cm consistent with abscess. Additionally, there is right perirectal extraluminal fluid collection which measures about 2 x 1.3 cm. 2. Increase in size of right lower lobe lung nodule suspicious for worsening metastatic pulmonary nodule. 3. Stable presacral soft tissue nodule, presumably metastatic lymphadenopathy. D/ / 05/18/2019 11:30:55 Joselyn Lemons MD / [email or web address] Interpreting Provider: Joselyn Lemons MD Consult Discharge Plan - Plan Referrals: Jacey Ochoa [Primary Care Provider] - (1) GERD (gastroesophageal reflux disease) Qualifiers: Qualified Code(s): K21.9 - Gastro-esophageal reflux disease without esophag itis (4) Anemia Qualifiers: Anemia type: unspecified type Qualified Code(s): D64.9 - Anemia, unspecified
--- NOTE | 2019-05-22 14:14 | Infectious Disease Consult ---
Infectious Disease-Consult - Encounter Date/Time Date of Encounter: 05/22/19 Time of Encounter: 14:00 - Data of Consult Requesting Physician: Jorge Huston MD Primary Care Provider: Jacey Ochoa - [facility] HPI: Ms. 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 Infectious disease was consulted because of choice of antibiotics for management of her pelvic abscess. Patient is a 58-year-old female with PMHx of rectal cancer (on FOLFIRI with Avastin) , stage IV with lung metastasis, LLE DVT (on pradaxa) anemia, GERD who presented to the ED on 05/18/19 because of rectal bleeding. In the ED, she said that she had some increased bleeding from her rectum for the past few days, she endorsed pain at 3 on a scale of 1-10.. Patient met 1 out of 4 SIRS criteria. While in the ED: Vitals: afebrile (97.8), pulse: 108, Rr: 20, BP : 135/95 Labs: normal WBC, Hb : 10.4, Na: 134, Cr: 0.43, normal lactate, high Alk Phos: 121, low albumin: 2.8. UA was positive for large leukocyte esterase, protein ~ 30 , sp gravity > 1.030 CT w/ contrast showed : -Rectovaginal fistula. Heterogenous extraluminal fluid collection with foci of gas in the right posterior pelvic sidewall measuring about 3.3 x 2 cm consistent with abscess. Also right perirectal extraluminal fluid collection with measures about 2 x 1.3 cm. -Increase in size of the right lower lobe lung nodule suspicious for worsen ing of metastatic pulmonary nodule -Stable presacral soft tissue nodule presumably metastatic lymphadenopathy Patient was given fentanyl 50mcg IVP for pain control and was admitted to the hospital. Surgery team met the patient with recommendations for diversion colostomy and pelvic drainage to treat the rectovaginal fistula and pelvic abscess. However, patient refused surgery for colostomy. Owing to her sedation of bright red blood per rectum, patient was also offered the option of undergoing IVC filter placement and discontinuation of anticoagulation along with percutaneous drainage of pelvic abscess. Patient underwent IVC filter placement on 7/19/19. Patient was kept NPO and was supposed to get the pelvic abscesses drained by IR, but decison was made by the IR not to put a percutaneous drain owing to the risk of creating a persistent rectocutaneous fistula after the drain is removed. Patient abcess and rectovaginal fistula is currently being managed conservatively. She is on day 4 of vancomycin and day 5 of Zosyn. - ROS Review of Systems: A 10-system review of systems was performed and is negative for pertinent findings except as documented above in the HPI. - Results CBC & Chem 7: 05/23/19 05:29 05/23/19 05:29 - Exam Vitals: Temp Pulse Resp BP Pulse Ox 98.0 F 87 16 117/74 97 05/22/19 11:05 05/22/19 11:05 05/22/19 11:05 05/22/19 11:05 05/22/19 11:05 Exam: Gen.: Vitals noted. No acute distress. Alert, awake and oriented * 3 to person, place, and time, cachectic resting comfortably in bed. Pleasant. HEENT: oropharynx clear, Normocephalic, atraumatic, MMM Neck: supple, no JVD, no lymphadenopathy, no carotid bruit. Cardiac: RRR, no murmur, +S1/S2, No BLE edema, PMI non-displaced Pulmonary: CTA bilaterally, no wheezes, rales or rhonchi, equal chest expansion, unlabored breathing Abdomen: soft, nontender, BS noted, no guarding, undistended. No organomegaly, no pulsatile masses, Skin: warm and dry, no visible lesions. Feels warm, clammy, no rashes, no lesions, no erythema MSK: ROM not assessed. no joint swelling noted, gait not assessed while in bed. Non tender calf or clubbing, no cyanosis/clubbing/ or edema Neuro: A&O, moves all extremities, no focal deficits, sensation intact Psych: Appropriate mood and behavior, normal speech. Tizanidine HCl [Zanaflex] 4 mg PO BID PRN #60 capsule 09/13/18 [Rx] Magnesium Oxide [Mag-Ox] 400 mg PO BID #60 tablet 10/13/18 [Rx] Loperamide [Imodium] 2 mg PO AD PRN #60 capsule 11/29/18 [Rx] Potassium Chloride [K-Tab ER] 20 meq PO BID #120 tablet.er 04/06/19 [Rx] Omeprazole [PriLOSEC] 20 mg PO DAILY #90 capsule.dr 04/20/19 [Rx] Celecoxib [Celebrex] 200 mg PO DAILY 05/01/19 [History] Diphenoxylate/Atropine [Lomotil 2.5 mg/0.025 mg] 2 tab PO TID PRN 05/01/19 [History] Lidocaine/Prilocaine CREAM [Emla] 1 appl TP AD 05/01/19 [History] Calcium Carbonate [Tums] 1,000 mg PO TID tab.chew 05/04/19 [Rx] HYDROcodone/Acet 5/325 mg [[place] 5-325 mg] 1 tab PO Q6H PRN 14 Days #120 tab 05/04/19 [Rx] Ondansetron [Zofran ODT] 8 mg SL TID PRN 30 Days #90 tab.rapdis 05/04/19 [Rx] Promethazine [Phenergan] 25 mg PO Q6HR PRN #30 tablet 05/04/19 [Rx] Gabapentin [Neurontin] 300 mg PO TID #90 capsule 05/11/19 [Rx] Allergy/AdvReac Type Severity Reaction Status Date / Time No Known Allergies Allergy Verified 05/01/19 09:47 - Assessment and Plan (1) Pelvic abscess Current Visit: Yes Status: Acute -Likely due to metastatic rectal adenocarcinoma -Patient met 1/ 4 SIRS criteria on admission to the ED , (HR: 108) -Patient's CT of the pelvis without contrast shows gas and no fluid collection along the right aspect of the rectum measuring about 2 x 1.3 cm consistent with abscess. Additional fluid collection extends superiorly towards the right posterior lateral pelvic wall measures about 3.3 x 2 cm -Patient and is currently unknown daily 4 of vancomycin and day 5 of Zosyn for broad-spectrum coverage PLAN: - Patient will continue with the conservative management on antibiotics. We will discontinue vancomycin and continue with Zosyn (to cover for gram-negative and anaerobes ) and add fluconazole 800g loading dose on day 1 followed by 400 mg dose once daily. (patient's EKG was repeated and her most recent QTc is 414 ms) SNOMED Code(s): 549668528 (2) Rectovaginal fistula Current Visit: Yes Status: Acute -Likely due to her history of rectal adenocarcinoma -[place] toe was offered the option of diverting colostomy but she declined at that time -IR was consult it and the currently do not have any plans to put a percutaneous drainage into the fistula because the side effects outweigh the benefits -Currently being managed conservatively with IV antibiotics PLAN: - Will discontinue vancomycin and continue with Zosyn (to cover for gram- negative and anaerobes ) and add fluconazole 800g loading dose on day 1 follow ed by 400 mg dose once daily SNOMED Code(s): 16186232 (3) Rectal bleeding Current Visit: Yes Status: Acute -Likely due to her history of rectal adenocarcinoma which was diagnosed last June and 2017 -Patient endorses that she had episodes of rectal bleeding 3 days before she presented to the ED -Her hemoglobin was 10.4 and admission and the most recent hemoglobin is 8.8. She has a history of chronic anemia -Will transfuse if Hb it goes below 7 SNOMED Code(s): 36639280 (4) GERD (gastroesophageal reflux disease) Current Visit: No Status: Acute Patient has a history of GERD We will continue her home medications PPI Qualifiers: Qualified Code(s): K21.9 - Gastro-esophageal reflux disease without esophagitis SNOMED Code(s): 759728673 (5) Anemia Current Visit: Yes Status: Acute -Likely anemia of chronic disease -Will transfuse if Hb < 7 Qualifiers: Anemia type: unspecified type Qualified Code(s): D64.9 - Anemia, unspecified SNOMED Code(s): 331285706 (6) Hx of deep venous thrombosis Current Visit: Yes Status: Acute -Patient has a history of DVT likely due to her rectal adenocarcinoma -She used to be on Pradaxa at home for anticoagulation but given her most recent presentation of bright red blood per rectum her up for an access has been discontinued and patient has an IVC filter in place -Continue to monitor SNOMED Code(s): 282719482 Past Med Surg Social Fam HX - Past Medical History Medical history: arthritis, cancer, DVT, GERD Additional medical history: multiple sclerosis. stage 4 rectal cancer Psychiatric history: no psych history - Past Surgical History Surgical History: , cholecystectomy Additional surgical history: Left Foot - Social History Smoking Status: Never smoker Smokeless Tobacco Status: No Alcohol use: none Drug use: none - Family History Mother Living Status: Hx Family Cardiac Disorders: Yes Hx Family Respiratory Disorders: Yes Hx Family Cancer: Yes Consult Discharge Plan - Plan Referrals: Jacey Ochoa [Primary Care Provider] - 05/25/19 8:00 am - Attending Attestation I examined this patient and my medical decision-making was reviewed with the Resident Physician. I agree with the documented findings, disposition and treatment plan as described except to the extent set forth below. Patient seen and examined. Agree with above findings, history of present illn ess and physical exam findings. Assessment and plan: 1.Pelvic abscess causative organism not clear likely due to rectovaginal fistula from underlying metastatic rectal adenocarcinoma 2.Vaginal bleed with fecal material 3.Adenocarcinoma of the rectum stage IV with metastases 4.Status post a port right chest does not appear infected Recommendations Continue Zosyn Stop vancomycin Start Diflucan Apparently patient cannot get surgery done. Appreciate surgical consultation input. I appreciate interventional radiology input Prognosis guarded
[2019-05-22] MEDS: Fluconazole 400 MG/200 ML 400 MG/200 ML BAG IVPB SCH ×2 (20:48→23:03)
[2019-05-22] MEDS: Ondansetron 4 MG/2 ML VIAL IVP PRN (23:53)
[2019-05-23] MEDS: Piperacillin/Tazobactam 3.375 GM in 0.9 % Sodium Chloride Mini Bag 100 ML IVPB SCH ×3 (01:42→16:26)
[2019-05-23 05:43] LABS: Basophils % 0.2 %; Eosinophils # 0.2 K/mcL (0.0-0.6); Eosinophils % 3.7 %; Hematocrit 27.2 % (35.3-44.9); Hemoglobin 8.5 g/dL (11.5-15.4); Immature Granulocytes % 0.5 % (0-4); Lymphocytes # 0.2 K/mcL (0.6-4.6); Lymphocytes % 5.2 %; Mean Corpuscular HGB Conc 31.3 g/dL (31.6-35.5); Mean Corpuscular Hemoglobin 27.9 pg (28.0-33.3); Mean Corpuscular Volume 89.2 fL (83.0-100.0); Mean Platelet Volume 8.8 fL (9.4-12.4); Monocytes # 0.3 K/mcL (0.0-1.3); Monocytes % 8.4 %; Neutrophils # 3.3 K/mcL (1.6-8.9); Platelet Count 259 K/mcL (140-400); Red Blood Count 3.05 M/mcL (3.82-4.97); Red Cell Distribution Width 19.1 % (11.5-14.5); White Blood Count 4.1 K/mcL (4.3-11.1)
[2019-05-23 06:03] LABS: BUN/Creatinine Ratio 17 (6-26); Blood Urea Nitrogen 7 mg/dL (6-20); Calcium 7.9 mg/dL (8.6-10.3); Carbon Dioxide 29 mEq/L (23-29); Chloride 107 mEq/L (98-107); Glucose 101 mg/dL (70-105); Osmolality,Calculated 292 (280-300); Potassium 3.4 mEq/L (3.5-5.1); Sodium 142 mEq/L (136-145); eGFR For African Americans > 60 (> 60); eGFR For Non-African Americans > 60 (> 60)
[2019-05-23] MEDS: Fluconazole 100 MG TABLET PO SCH (07:58)
[2019-05-23] MEDS: *HR* HYDROcodone/Acet 5/325 mg TABLET PO PRN ×2 (07:58→16:25)
[2019-05-23] MEDS: Gabapentin 300 MG CAPSULE PO SCH ×3 (07:59→21:52)
[2019-05-23] MEDS: Celecoxib 200 MG CAPSULE PO SCH (07:59)
[2019-05-23] MEDS: Magnesium Oxide 400 MG TABLET PO SCH ×2 (07:59→21:52)
[2019-05-23] MEDS: Ondansetron 4 MG/2 ML VIAL IVP PRN ×2 (08:24→20:57)
--- NOTE | 2019-05-23 11:46 | Infectious Disease Progress No ---
ID Progress Note Date of Encounter: 05/23/19 Time of Encounter: 11:30 - Subjective Subjective: Patient was seen and examined at the bedside. She tells me that she has had the rectal bleeding this morning when she her bowel movement. Patient continues to be afebrile with leukopenia. Currently on day 5 of Zosyn and day 2 of fluconazole 400 mg PO. - Objective CBC & Chem 7: 05/23/19 05:29 05/23/19 05:29 - Exam Vitals: Temp Pulse Resp BP Pulse Ox 97.8 F 71 16 109/72 98 05/23/19 06:26 05/23/19 06:26 05/23/19 06:26 05/23/19 06:26 05/23/19 06:26 Exam: Gen.: Vitals noted. No acute distress. Alert, awake and oriented * 3 to person, place, and time, cachectic resting comfortably in bed. Pleasant. HEENT: oropharynx clear, Normocephalic, atraumatic, MMM Neck: supple, no JVD, no lymphadenopathy, no carotid bruit. Cardiac: RRR, no murmur, +S1/S2, No BLE edema, PMI non-displaced Pulmonary: CTA bilaterally, no wheezes, rales or rhonchi, equal chest expansion, unlabored breathing Abdomen: soft, nontender, BS noted, no guarding, undistended. No organomegaly, no pulsatile masses, Skin: warm and dry, no visible lesions. Feels warm, clammy, no rashes, no lesions, no erythema MSK: ROM not assessed. no joint swelling noted, gait not assessed while in bed. Non tender calf or clubbing, no cyanosis/clubbing/ or edema Neuro: A&O, moves all extremities, no focal deficits, sensation intact Psych: Appropriate mood and behavior, normal speech. - Assessment and Plan (1) Pelvic abscess Current Visit: Yes Status: Acute -Likely due to metastatic rectal adenocarcinoma -Patient met 1/ 4 SIRS criteria on admission to the ED , (HR: 108) -Patient's CT of the pelvis without contrast shows gas and no fluid collection along the right aspect of the rectum measuring about 2 x 1.3 cm consistent with abscess. Additional fluid collection extends superiorly towards the right posterior lateral pelvic wall measures about 3.3 x 2 cm -Patient is currently on day 5 of Zosyn (to cover for gram-negative and anaerobes ) and day two of fluconazole 400 mg once a day PLAN: -We will continue Zosyn 3.375 every 8 hours for total of 7 days depending on the clinical picture and then transitioned to oral antibiotics (Augmentin 875 mg BID)to complete 14 days total course of therapy through 05/31 -Continue PO fluconazole 400 mg through 06/05 SNOMED Code(s): 372745132 (2) Rectovaginal fistula Current Visit: Yes Status: Acute -Likely due to her history of rectal adenocarcinoma -[place] toe was offered the option of diverting colostomy but she declined at that time -IR was consult it and the currently do not have any plans to put a percutaneous drainage into the fistula because the side effects outweigh the benefits -Currently being managed conservatively with IV antibiotics PLAN: -We will continue Zosyn 3.375 every 8 hours for total of 7 days depending on the clinical picture and then transitioned to oral antibiotics to complete 14 days total course of therapy through 05/31 -Continue PO fluconazole 400 mg through 06/05 SNOMED Code(s): 90935036 (3) Rectal bleeding Current Visit: Yes Status: Acute -Likely due to her history of rectal adenocarcinoma which was diagnosed last June and 2017 -Patient endorses that she had episodes of rectal bleeding 3 days before she presented to the ED -Her hemoglobin was 10.4 and admission and the most recent hemoglobin is 8.8. She has a history of chronic anemia -Will transfuse if Hb it goes below 7 SNOMED Code(s): 68576493 (4) GERD (gastroesophageal reflux disease) Current Visit: No Status: Acute Patient has a history of GERD We will continue her home medications PPI Qualifiers: Qualified Code(s): K21.9 - Gastro-esophageal reflux disease without esophagitis SNOMED Code(s): 481595703 (5) Anemia Current Visit: Yes Status: Acute -Likely anemia of chronic disease -Will transfuse if Hb < 7 Qualifiers: Anemia type: unspecified type Qualified Code(s): D64.9 - Anemia, unspecified SNOMED Code(s): 116528299 (6) Hx of deep venous thrombosis Current Visit: Yes Status: Acute -Patient has a history of DVT likely due to her rectal adenocarcinoma -She used to be on Pradaxa at home for anticoagulation but given her most recent presentation of bright red blood per rectum her up for an access has been discontinued and patient has an IVC filter in place -Continue to monitor SNOMED Code(s): 638492129 Consult Discharge Plan - Plan Referrals: Jacey Ochoa [Primary Care Provider] - 05/25/19 8:00 am - Attending Attestation I examined this patient and my medical decision-making was reviewed with the Resident Physician. I agree with the documented findings, disposition and treatment plan as described except to the extent set forth below. Assessment and plan: 1.Pelvic abscess causative organism not clear likely due to rectovaginal fistula from underlying metastatic rectal adenocarcinoma 2.Vaginal bleed with fecal material 3.Adenocarcinoma of the rectum stage IV with metastases 4.Status post a port right chest does not appear infected Recommendations Continue Zosyn Stop vancomycin Start Diflucan Apparently patient cannot get surgery done. Appreciate surgical consultation input. I appreciate interventional radiology input Prognosis guarded
--- NOTE | 2019-05-23 12:58 | Oncology Inp Consult Note ---
Date of Encounter: 05/23/19 Time of Encounter: 12:58 - Data of Consult Patient: known to practice within the last 3 years Consult date: 05/23/19 Requesting Physician: Jorge Huston MD Primary Care Provider: Jacey Ochoa - Consult Narrative Reason for consult: metastatic rectal cancer History of present illness: Diagnosis: 1. Metastatic rectal adenocarcinoma. DORYS, BRAF WT, KRAS WT, p53 mutated, PIK3CA mutated. Patient is symptomatic with a partially obstructing primary tumor causing her discomfort and tenesmus. She has been found to have multiple noncalcified pulmonary nodules biopsy proven metastatic disease. 2. Multiple sclerosis previously on Tecfidera Prior therapy: 1. Xeloda with radiation 07/07/18-08/24/18 2. FOLFOX with panitumumab 09/29/2018-01/05/2019, stopped secondary to progression Current therapy: 1. FOLFIRI with Avastin initiated 01/26/2019 Treatment intent: Palliative Past Med Surg Social Fam HX - Past Medical History Medical history: arthritis, cancer, DVT, GERD Additional medical history: multiple sclerosis. stage 4 rectal cancer Psychiatric history: no psych history - Past Surgical History Surgical History: , cholecystectomy Additional surgical history: Left Foot - Social History Smoking Status: Never smoker Smokeless Tobacco Status: No Alcohol use: none Drug use: none - Family History Mother Living Status: Hx Family Cardiac Disorders: Yes Hx Family Respiratory Disorders: Yes Hx Family Cancer: Yes Medications and Allergies Tizanidine HCl [Zanaflex] 4 mg PO BID PRN #60 capsule 09/13/18 [Rx] Magnesium Oxide [Mag-Ox] 400 mg PO BID #60 tablet 10/13/18 [Rx] Loperamide [Imodium] 2 mg PO AD PRN #60 capsule 11/29/18 [Rx] Potassium Chloride [K-Tab ER] 20 meq PO BID #120 tablet.er 04/06/19 [Rx] Omeprazole [PriLOSEC] 20 mg PO DAILY #90 capsule. 04/20/19 [Rx] Celecoxib [Celebrex] 200 mg PO DAILY 05/01/19 [History] Diphenoxylate/Atropine [Lomotil 2.5 mg/0.025 mg] 2 tab PO TID PRN 05/01/19 [History] Lidocaine/Prilocaine CREAM [Emla] 1 appl TP AD 05/01/19 [History] Calcium Carbonate [Tums] 1,000 mg PO TID tab.chew 05/04/19 [Rx] HYDROcodone/Acet 5/325 mg [[place] 5-325 mg] 1 tab PO Q6H PRN 14 Days #120 tab 05/04/19 [Rx] Ondansetron [Zofran ODT] 8 mg SL TID PRN 30 Days #90 tab.rapdis 05/04/19 [Rx] Promethazine [Phenergan] 25 mg PO Q6HR PRN #30 tablet 05/04/19 [Rx] Gabapentin [Neurontin] 300 mg PO TID #90 capsule 05/11/19 [Rx] Allergy/AdvReac Type Severity Reaction Status Date / Time No Known Allergies Allergy Verified 05/01/19 09:47 Oncology Inpatient Results Labs: Laboratory Last Values WBC 4.1 K/mcL (4.3-11.1) L 05/23/19 05:29 RBC 3.05 M/mcL (3.82-4.97) L 05/23/19 05:29 Hgb 8.5 g/dL (11.5-15.4) L 05/23/19 05:29 Hct 27.2 % (35.3-44.9) L 05/23/19 05:29 MCV 89.2 fL (83.0-100.0) 05/23/19 05:29 MCH 27.9 pg (28.0-33.3) L 05/23/19 05:29 MCHC 31.3 g/dL (31.6-35.5) L 05/23/19 05:29 RDW 19.1 % (11.5-14.5) H 05/23/19 05:29 Plt Count 259 K/mcL (140-400) 05/23/19 05:29 MPV 8.8 fL (9.4-12.4) L 05/23/19 05:29 Immature Gran % 0.5 % (0-4) 05/23/19 05:29 Seg Neutrophils % 82.0 % 05/23/19 05:29 Lymphocytes % 5.2 % 05/23/19 05:29 Monocytes % 8.4 % 05/23/19 05:29 Eosinophils % 3.7 % 05/23/19 05:29 Basophils % 0.2 % 05/23/19 05:29 Neutrophils # 3.3 K/mcL (1.6-8.9) 05/23/19 05:29 Lymphocytes # 0.2 K/mcL (0.6-4.6) L 05/23/19 05:29 Monocytes # 0.3 K/mcL (0.0-1.3) 05/23/19 05:29 Eosinophils # 0.2 K/mcL (0.0-0.6) 05/23/19 05:29 Basophils # 0.0 K/mcL (0.0-0.2) 05/23/19 05:29 Platelet Estimate Normal (Normal) 05/21/19 04:00 Hypochromasia Present (Not Present) A 05/19/19 05:30 Anisocytosis 1+ (Not Present) A 05/19/19 05:30 PT 12.3 Seconds (9.4-12.1) H 05/22/19 03:27 INR 1.1 05/22/19 03:27 Sodium 142 mEq/L (136-145) 05/23/19 05:29 Potassium 3.4 mEq/L (3.5-5.1) L 05/23/19 05:29 Chloride 107 mEq/L (98-107) 05/23/19 05:29 Carbon Dioxide 29 mEq/L (23-29) 05/23/19 05:29 BUN 7 mg/dL (6-20) 05/23/19 05:29 Creatinine 0.42 mg/dL (0.60-1.20) L 05/23/19 05:29 Est GFR ( Amer) > 60 (> 60) 05/23/19 05:29 Est GFR (Non-Af Amer) > 60 (> 60) 05/23/19 05:29 BUN/Creatinine Ratio 17 (6-26) 05/23/19 05:29 Glucose 101 mg/dL (70-105) 05/23/19 05:29 Calculated Osmolality 292 (280-300) 05/23/19 05:29 Lactic Acid 0.9 mmol/L (0.5-2.2) 05/18/19 11:37 Calcium 7.9 mg/dL (8.6-10.3) L 05/23/19 05:29 Total Bilirubin 0.3 mg/dL (0.3-1.0) 05/18/19 09:20 AST 11 Units/L (13-39) L 05/18/19 09:20 ALT 9 Units/L (7-52) 05/18/19 09:20 Alkaline Phosphatase 121 Units/L (34-104) H 05/18/19 09:20 Serum Total Protein 5.5 g/dL (6.4-8.9) L 05/18/19 09:20 Albumin 2.8 g/dL (3.5-5.7) L 05/18/19 09:20 Globulin 2.7 g/dL (2.4-3.5) 05/18/19 09:20 Albumin/Globulin Ratio 1.0 (1.1-2.2) L 05/18/19 09:20 Lipase 8 Units/L (11-82) L 05/18/19 09:20 Urine Color Yellow (Yellow) 05/18/19 18:37 Urine Clarity Turbid (Clear) A 05/18/19 18:37 Urine pH 7.0 pH Units (5.0-8.0) 05/18/19 18:37 Ur Specific [place] > 1.030 (1.010-1.025) H 05/18/19 18:37 Urine Protein 30 mg/dL (Neg-Trace) H 05/18/19 18:37 Urine Glucose (UA) Normal mg/dL (Normal) 05/18/19 18:37 Urine Ketones Negative mg/dL (Negative) 05/18/19 18:37 Urine Blood Large (Negative) H 05/18/19 18:37 Urine Nitrite Negative (Negative) 05/18/19 18:37 Urine Bilirubin Negative (Negative) 05/18/19 18:37 Urine Urobilinogen Normal mg/dL (Normal) 05/18/19 18:37 Ur Leukocyte Esterase Large (Negative) H 05/18/19 18:37 Urine Microscopic RBC 5-15 per hpf (0-3) H 05/18/19 18:37 Urine Microscopic WBC TNTC per hpf (0-3) H 05/18/19 18:37 Ur Squamous Epith Cells Many per lpf (None-Few) H 05/18/19 18:37 Urine Bacteria Few per hpf (None-Few) 05/18/19 18:37 Hyaline Casts None Seen per lpf (None-Few) 05/18/19 18:37 Vancomycin Trough 12 mcg/mL (5-10) H 05/22/19 16:08 Specimen Rejected Labelling 05/18/19 09:20 Blood Type O POSITIVE 05/18/19 09:39 Antibody Screen NEGATIVE 05/18/19 09:39 Consult Discharge Plan - Plan Referrals: Jacey Ochoa [Primary Care Provider] - 05/25/19 8:00 am
--- NOTE | 2019-05-23 13:07 | Oncology Inp Progress Note ---
<Richar Villegas S - Last Filed: 05/23/19 16:11> Date of Encounter: 05/23/19 (1) Pelvic abscess Current Visit: Yes Status: Acute Assessment and plan: Patient is currently on day 5 of Zosyn and day two of fluconazole 400 mg once a day with plan to continue Zosyn for 7 days to be transitioned to Augmentin per infectious disease. Fluconazole to be continued through June 05. I agree with not pursuing drain placement given the small size of this lesion and lack of sepsis symptoms. There is a good chance this will be a chronic recurrent problem through the remainder of her illness. Unfortunately, there is not much we can do for management outside of supportive care. She is not a candidate for further radiation as this region was previously radiated. Perhaps cessation of Avastin may help this he will although unlikely. (2) Hx of deep venous thrombosis Current Visit: Yes Status: Acute Assessment and plan: Anticoagulation has been discontinued secondary to bleeding. IVC filter has been placed. No further anticoagulation recommended moving forward. (3) Rectal cancer Current Visit: No Status: Chronic Assessment and plan: Patient has progressive rectal cancer by recent imaging. 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 Patient has primary refractory disease that she did not respond to initial chemotherapy regimen of FOLFOX with panitumumab. She has now progressed on FOLFIRI with Avastin. In addition, her tolerance of chemotherapy has been poor. Options are limited with regards to further treatment. Given her fistula, regorafenib would be contraindicated. Lonsurf would likely cause more harm than benefit; she would have difficulty tolerating this medication secondary to inability to swallow pills on a routine basis. This was discussed with the patient as well as her daughter today via phone. I think could be the patient's best interest to pursue hospice measures. Patient's performance status, treatment history and lack of good treatment options make this the most attractive option. In addition, I think her quality life will be improved on therapy with improved energy and perhaps decrease risk of infection. After this discussion, the patient agrees to proceed. The daughter is in agreement as well. I recommended that care consultation to help with home hospice planning. I would continue with management of her fistula per infectious disease. I recommended follow-up with me in 4-6 weeks to discuss goals of care while on hospice per patient preference. Oncology: Subj Interval history: Ms. Gupta is currently resting in bed. She has had difficult day. She has experienced nausea with one episode of emesis as well as pelvic discomfort. She states the pain medication has not helped with her pain earlier today. She also passed blood from her rectum as well. No fever or chills currently. She has any nausea at the present time. She is very fatigued and tired. She having difficulty caring for self at home. I have been requested to discuss goals of care with her - Constitutional General appearance: average body habitus, no acute distress - Head Head exam: Present: atraumatic, normal inspection, normocephalic - Eye Eye exam: Present: normal appearance, conjuntiva pink, sclera anicteric - ENT ENT exam: Present: mucous membranes moist, normal exam, normal oropharynx - Neck Neck exam: Present: full ROM, normal inspection - Respiratory Respiratory exam: Present: CTAB - Cardiovascular Cardiovascular exam: Present: RRR - GI/Abdominal GI/Abdominal exam: Present: normal bowel sounds, soft, tenderness - Extremities Exam Extremities exam: Present: normal inspection, pedal edema - Neurological Exam Neurological exam: Present: alert, CN II-XII intact, oriented X3, no focal deficits Oncology: Obj Data - Labs CBC & Chem 7: 05/23/19 05:29 05/23/19 05:29 - Imaging and cardiology CT scan - pelvis Status: image reviewed by me Additional comments: CT OF THE PELVIS WITHOUT CONTRAST 05/22/2019 10:41 am IMPRESSION: Stable appearance of a thin fistulous tract extending from the distal rectum to the rightward aspect of the vagina. More ill-defined phlegmonous changes with foci of air are also present along the right posterior pelvic sidewall. No well-defined abscess separate from the fistulous tract is identified. The risks and benefits of placing a percutaneous drain into the fistulous tract were discussed with the patient. She is currently asymptomatic except for occasional vaginal discharge. Placing a percutaneous drain into the fistulous tract could create a persistent rectocutaneous fistula after the drain is removed. It was decided to defer percutaneous drain placement at this point. Consult Discharge Plan - Plan Referrals: Jacey Ochoa [Primary Care Provider] - 05/25/19 8:00 am Inpatient Charges Provider: Dr. Clotilde Villegas Follow up - Inpatient: [id number] <Orion Victor Jr - Last Filed: 05/23/19 17:39> Date of Encounter: 05/23/19 Time of Encounter: 13:04 (1) Metastatic colorectal cancer Current Visit: Yes Status: Acute Assessment and plan: Metastatic rectal adenocarcinoma. Multiple sclerosis previously on Tecfidera. Received call from hospitalist Tracie Weiss CNP to see the patient today to discuss prognosis and palliative care needs as the patient continues to be in clinical decline Dr Villegas has spoken to the patient. She has agreed to hospice care. I spoke to Rachel Jose on PC team, they will see patient in the AM to make hospice arrangements. She will need to see Dr Villegas in 6 weeks in the office as an outpatient per her request. Please make appointment as part of discharge plan - Constitutional General appearance: no acute distress Oncology: Obj Data - Labs CBC & Chem 7: 05/23/19 05:29 05/23/19 05:29
--- NOTE | 2019-05-23 14:00 | Internal Med Progress Note ---
Hospitalist Progress Note - Encounter Date of Encounter: 05/23/19 Time of Encounter: 13:55 - Subjective Interval History: Patient was seen and examined at bedside. Discussed with patient current treatment plan which includes continued IV antibiotics. She did speak with oncology today -patient states that chemotherapy will be stopped and that oncology is recommending hospice services. Discussed with patient possible consult for palliative which she declined at this time would like to discuss daughter first. Patient was very tearful during conversation emotional support was given. - Exam Vitals: Temp Pulse Resp BP Pulse Ox 98.0 F 73 16 121/76 97 05/23/19 11:00 05/23/19 11:00 05/23/19 11:00 05/23/19 11:00 05/23/19 11:00 Exam: General patient appears cachectic Skin: Free of rash and discoloration. Eyes: Sclera is white. There is no discharge from eyes. ENMT: Oral/pharyngeal mucosa is normal in appearance. There is no discharge f rom nose or ears. Respiratory: Normal breath sounds with no crackles and wheezes bilaterally. CV: Heart is regular with no gallop or murmur. GI: Abdomen is flat and soft with no palpable mass or visceromegaly. : There is no tenderness in patient's flanks bilaterally. Neuro exam: He has good strength in upper and lower extremities. He has normal eye movements. Psychiatric: He has normal affect. His thought process is appropriate to the situation. - Assessment and Plan (1) GERD (gastroesophageal reflux disease) Current Visit: No Status: Acute Assessment and Plan: Continue PPI (2) Rectal bleeding Current Visit: Yes Status: Acute Assessment and Plan: Due to the extension of rectal tumor and patient on Pradaxa for DVT. General Surgery was consulted in ED and patient declined a recommended diverting colostopy and pelvic drainage. Treatment for bleeding will be limited, but holding Pradaxa would be most imperative but places her at high risk of another DVT or other VTE. - Hold Pradaxa - Consult Vascular Surgery for potential placement of IV filter - Cycle H&H, monitor vital signs closely - Oncology consulted, recommendations appreciated. 05/19 We will continue to hold Pradaxa Vascular surgery has been consulted and IV filter has been placed Monitor H&H currently appears stable Oncology has been consulted and appreciate recommendations 05/20 Hemoglobin is 9 today she did have one bloody stool this a.m. continue to monitor H&H and transfuse as needed Into the hold Pradaxa Patient has IVC filter placed Oncology has been consulted and appreciate recommendations SCDs 05/21 HEENT: 8.8 today had one dark bloody stool this a.m. continue to monitor H&H and transfuse as needed Continuehold Pradaxa Patient has IVC filter placed Oncology has been consulted and appreciate recommendations SCDs 05/22 no active bleeding noted Hold pradaxa IVC filter placed SCD 05/23 Patient had bright red blood this morning with bowel movement Hemoglobin down to 8.5 Continue to hold Pradaxa IVC filter in place We will give Colace-stool softener to help decrease straining (3) Anemia Current Visit: Yes Status: Acute Assessment and Plan: At baseline. Due to iron deficiency and also anemia of chronic disease. Repeat H&H as patient was having significant bleed earlier. 05/19 Monitor for bleeding-currently H&H is stable continue to monitor closely 05/20 Hemoglobin is 9 today she did have one bloody stool today continue to monitor H&H and transfuse as needed 12/22 Hemoglobin stable at 8.8 continues to have bloody stools monitor H&H and transfuse as needed 12/23 Hemoglobin continues to be stable 8.8 has had some dark bloody stools 12/24 Hemoglobin 8.5-he had bright red bloody stool this morning we will continue to monitor and transfuse as needed (4) Rectovaginal fistula Current Visit: Yes Status: Acute Assessment and Plan: Accu surgery was consulted recommending diverging colostomy and pelvic drainage to treat rectovaginal fistula and pelvic abscess however patient has declined at this time We will consult IR concerning drainage of abscess 05/22 Acute surgery was consulted recommending diverging colostomy and pelvic drainage to treat rectovaginal fistula and pelvic abscess however patient has declined at this time IR consulted - unable to drain abscess or place drain in fistula - IR will speak with patient concerning options consult ID for ATB coverage 05/23 Acute surgery was consulted recommending diverging colostomy and pelvic drainage to treat rectovaginal fistula and pelvic abscess however patient has declined at this time IR consulted - unable to drain abscess or place drain in fistula - concerned about new fistula forming after placement of drain consult ID for ATB coverage -continue with vancomycin-as well as Diflucan per recommendations (5) Pelvic abscess Current Visit: Yes Status: Acute Assessment and Plan: Patient does not meet sepsis criteria. Will need drained by IR - Patient had Pradaxa this morning before coming to ED. Will hold Pradaxa and consult IR tomorrow since she received anticoagulation today. Continue Vanc/Zosyn. 05/19 We will continue with vancomycin and Zosyn Continue to hold Pradaxa-we will consult IR for abscess drainage 05/20 cont with vanc and zosyn cont to hold pradaxa -IR consulted for abscess drainage 05/21 Continue vancomycin and Zosyn T the hold Pradaxa patient will be nothing by mouth after midnight for abscess drainage by IR in the a.m. 05/22 cont with Vanc and zosyn ID consulted for ATB coverage IR unable to drain abscess 05/23 Continue vancomycin and Zosyn ID has been consulted for antibiotic coverage-and continue with Diflucan per IDs recommendation IR unable to drain abscess (6) Hx of deep venous thrombosis Current Visit: Yes Status: Acute Assessment and Plan: On Pradaxa, but will be held due to BRBPR. Vascular Surgery consulted, patient may benefit from IVC filter since she is having bleeding with Pradaxa now. Foot SCD 05/22 IVC filter placed per vascular cont foot pumps oncology consulted and appreciate recommendations 05/23 Patient was on Pradaxa however this has been discontinued due to bleeding IVC filter has been placed Continue with foot pumps - Time Spent with Patient Total time spent is greater than 50% in coordination of care (as documented) at patient's floor/unit and/or counseling patient: Internal Medicine: Result - Labs CBC & Chem 7: 05/23/19 05:29 05/23/19 05:29 Labs: Short CBC 05/23/19 Range/Units 05:29 WBC 4.1 L (4.3-11.1) K/mcL Hgb 8.5 L (11.5-15.4) g/dL Hct 27.2 L (35.3-44.9) % Plt Count 259 (140-400) K/mcL Neutrophils # 3.3 (1.6-8.9) K/mcL BMP 05/23/19 05:29 Sodium 142 Potassium 3.4 L Chloride 107 Carbon Dioxide 29 BUN 7 Creatinine 0.42 L Glucose 101 Calcium 7.9 L - ABG Interpretation ABG results: PT/INR, D-dimer PT 12.3 Seconds (9.4-12.1) H 05/22/19 03:27 - Impressions Impressions Pelvis CT 05/22/19 00:00 IMPRESSION: Stable appearance of a thin fistulous tract extending from the distal rectum to the rightward aspect of the vagina. More ill-defined phlegmonous changes with foci of air are also present along the right posterior pelvic sidewall. No well-defined abscess separate from the fistulous tract is identified. The risks and benefits of placing a percutaneous drain into the fistulous tract were discussed with the patient. She is currently asymptomatic except for occasional vaginal discharge. Placing a percutaneous drain into the fistulous tract could create a persistent rectocutaneous fistula after the drain is removed. It was decided to defer percutaneous drain placement at this point. RECOMMENDATIONS: A follow-up CT scan of the pelvis could be considered in several weeks, particularly if symptoms of the patient's fistula worsen. D/ / 05/22/2019 12:39:11 Matt Mcmahan MD / [place] Interpreting Provider: Matt Mcmahan MD Consult Discharge Plan - Plan Referrals: Jacey Ochoa [Primary Care Provider] - 05/25/19 8:00 am (1) GERD (gastroesophageal reflux disease) Qualifiers: Qualified Code(s): K21.9 - Gastro-esophageal reflux disease without esophagitis (3) Anemia Qualifiers: Anemia type: unspecified type Qualified Code(s): D64.9 - Anemia, unspecified
[2019-05-24] MEDS: Piperacillin/Tazobactam 3.375 GM in 0.9 % Sodium Chloride Mini Bag 100 ML IVPB SCH ×3 (00:03→16:08)
[2019-05-24 05:04] LABS: Basophils % 0.2 %; Eosinophils # 0.1 K/mcL (0.0-0.6); Hematocrit 27.9 % (35.3-44.9); Hemoglobin 8.3 g/dL (11.5-15.4); Immature Granulocytes % 0.2 % (0-4); Lymphocytes # 0.2 K/mcL (0.6-4.6); Lymphocytes % 4.2 %; Mean Corpuscular HGB Conc 29.7 g/dL (31.6-35.5); Mean Corpuscular Hemoglobin 27.4 pg (28.0-33.3); Mean Corpuscular Volume 92.1 fL (83.0-100.0); Mean Platelet Volume 8.8 fL (9.4-12.4); Monocytes # 0.6 K/mcL (0.0-1.3); Monocytes % 10.3 %; Neutrophils # 4.6 K/mcL (1.6-8.9); Platelet Count 260 K/mcL (140-400); Red Blood Count 3.03 M/mcL (3.82-4.97); Red Cell Distribution Width 19.4 % (11.5-14.5); Segmented Neutrophils % 83.1 %; White Blood Count 5.5 K/mcL (4.3-11.1)
[2019-05-24 05:22] LABS: BUN/Creatinine Ratio 18 (6-26); Blood Urea Nitrogen 7 mg/dL (6-20); Calcium 7.7 mg/dL (8.6-10.3); Carbon Dioxide 29 mEq/L (23-29); Chloride 106 mEq/L (98-107); Glucose 90 mg/dL (70-105); Osmolality,Calculated 288 (280-300); Potassium 3.1 mEq/L (3.5-5.1); Sodium 140 mEq/L (136-145); eGFR For African Americans > 60 (> 60); eGFR For Non-African Americans > 60 (> 60)
[2019-05-24] MEDS: Celecoxib 200 MG CAPSULE PO SCH (09:19)
[2019-05-24] MEDS: Fluconazole 100 MG TABLET PO SCH (09:20)
[2019-05-24] MEDS: Gabapentin 300 MG CAPSULE PO SCH ×3 (09:20→19:54)
[2019-05-24] MEDS: Magnesium Oxide 400 MG TABLET PO SCH ×2 (09:20→19:54)
[2019-05-24] MEDS: *HR* HYDROcodone/Acet 5/325 mg TABLET PO PRN (09:22)
--- NOTE | 2019-05-24 11:19 | Infectious Disease Progress No ---
ID Progress Note Date of Encounter: 05/24/19 Time of Encounter: 12:05 - Subjective Subjective: Patient seen and examined at the bedside. She endorses 1 episode of rectal bleeding this morning. Patient is afebrile, also 77 respirations 16. Satting at 94% on room air. Continues to be on day 6 of Zosyn and day 3 of fluconazole. - Objective CBC & Chem 7: 05/24/19 04:40 05/24/19 04:40 - Exam Vitals: Temp Pulse Resp BP Pulse Ox 97.9 F 77 16 100/66 94 05/24/19 10:57 05/24/19 10:57 05/24/19 10:57 05/24/19 10:57 05/24/19 10:57 Exam: Gen.: Vitals noted. No acute distress. Alert, awake and oriented * [address], [address], and time, cachectic resting comfortably in bed. Pleasant. HEENT: oropharynx clear, Normocephalic, atraumatic, MMM Neck: supple, no JVD, no lymphadenopathy, no carotid bruit. Cardiac: RRR, no murmur, +S1/S2, No BLE edema, PMI non-displaced Pulmonary: CTA bilaterally, no wheezes, rales or rhonchi, equal chest expansion, unlabored breathing Abdomen: soft, nontender, BS noted, no guarding, undistended. No organomegaly, no pulsatile masses, Skin: warm and dry, no visible lesions. Feels warm, clammy, no rashes, no lesions, no erythema MSK: ROM not assessed. no joint swelling noted, gait not assessed while in bed. Non tender calf or clubbing, no cyanosis/clubbing/ or edema Neuro: A&O, moves all extremities, no focal deficits, sensation intact Psych: Appropriate mood and behavior, normal speech. - Assessment and Plan (1) Pelvic abscess Current Visit: Yes Status: Acute -Likely due to metastatic rectal adenocarcinoma -Patient met 1/ 4 SIRS criteria on admission to the ED , (HR: 108) -Patient's CT of the pelvis without contrast shows gas and no fluid collection along the right aspect of the rectum measuring about 2 x 1.3 cm consistent with abscess. Additional fluid collection extends superiorly towards the right posterior lateral pelvic wall measures about 3.3 x 2 cm -Patient is currently on day 6 of Zosyn (to cover for gram-negative and anaerobes ) and day 3 of fluconazole 400 mg once a day PLAN: -Will recommend patient combination of cefepime 1 g every 12+ Flagyl by mouth 500 mg 3 TID+ Diflucan 400 mg po daily for 10 days followed by oral Augmentin and Diflucan for 2 more weeks after that. SNOMED Code(s): 312708485 (2) Rectovaginal fistula Current Visit: Yes Status: Acute -Likely due to her history of rectal adenocarcinoma -[place] toe was offered the option of diverting colostomy but she declined at that time -IR was consult it and the currently do not have any plans to put a percutaneous drainage into the fistula because the side effects outweigh the benefits -Currently being managed conservatively with IV antibiotics PLAN: -plan as above SNOMED Code(s): 05457613 (3) Rectal bleeding Current Visit: Yes Status: Acute -Likely due to her history of rectal adenocarcinoma which was diagnosed last June and 2017 -Patient endorses that she had episodes of rectal bleeding 3 days before she presented to the ED -Her hemoglobin was 10.4 and admission and the most recent hemoglobin is 8.8. She has a history of chronic anemia -Will transfuse if Hb it goes below 7 SNOMED Code(s): 57381441 (4) GERD (gastroesophageal reflux disease) Current Visit: No Status: Acute Patient has a history of GERD We will continue her home medications PPI Qualifiers: Qualified Code(s): K21.9 - Gastro-esophageal reflux disease without esophagitis SNOMED Code(s): 260397464 (5) Anemia Current Visit: Yes Status: Acute -Likely anemia of chronic disease -Will transfuse if Hb < 7 Qualifiers: Anemia type: unspecified type Qualified Code(s): D64.9 - Anemia, unspecified SNOMED Code(s): 460170944 (6) Hx of deep venous thrombosis Current Visit: Yes Status: Acute -Patient has a history of DVT likely due to her rectal adenocarcinoma -She used to be on Pradaxa at home for anticoagulation but given her most recent presentation of bright red blood per rectum her up for an access has been discontinued and patient has an IVC filter in place -Continue to monitor SNOMED Code(s): 321036575 Consult Discharge Plan - Plan Referrals: Jacey Ochoa [Primary Care Provider] - 05/25/19 8:00 am - Attending Attestation I examined this patient and my medical decision-making was reviewed with the Resident Physician. I agree with the documented findings, disposition and treatment plan as described except to the extent set forth below. 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 Consider switching the patient to combination of cefepime 1 g q12+ Flagy po 500mg tid +Diflucan 400 mg po daily for 10 days followed by oral Augmentin and Diflucan for 2 more weeks after that. Prognosis is very poor
--- NOTE | 2019-05-24 11:43 | Internal Med Progress Note ---
Hospitalist Progress Note - Encounter Date of Encounter: 05/24/19 Time of Encounter: 11:40 - Subjective Interval History: PT seem and examined in the room. Reported intermittent rectal bleeding and diarrhea. No fever, chills, or night sweats. - Exam Vitals: Temp Pulse Resp BP Pulse Ox 97.9 F 77 16 100/66 94 05/24/19 10:57 05/24/19 10:57 05/24/19 10:57 05/24/19 10:57 05/24/19 10:57 Exam: General patient appears cachectic Skin: Free of rash and discoloration. Eyes: Sclera is white. There is no discharge from eyes. ENMT: Oral/pharyngeal mucosa is normal in appearance. There is no discharge from nose or ears. Respiratory: Normal breath sounds with no crackles and wheezes bilaterally. CV: Heart is regular with no gallop or murmur. GI: Abdomen is flat and soft with no palpable mass or visceromegaly. : There is no tenderness in patient's flanks bilaterally. Neuro exam: He has good strength in upper and lower extremities. He has normal eye movements. Psychiatric: He has normal affect. His thought process is appropriate to the situation. - Assessment and Plan (1) Pelvic abscess Current Visit: Yes Status: Acute Assessment and Plan: Patient does not meet sepsis criteria. Will need drained by IR - Patient had Pradaxa this morning before coming to ED. Will hold Pradaxa and consult IR tomorrow since she received anticoagulation today. Continue Vanc/Zosyn. 05/19 We will continue with vancomycin and Zosyn Continue to hold Pradaxa-we will consult IR for abscess drainage 05/20 cont with vanc and zosyn cont to hold pradaxa -IR consulted for abscess drainage 05/21 Continue vancomycin and Zosyn T the hold Pradaxa patient will be nothing by mouth after midnight for abscess drainage by IR in the a.m. 05/22 cont with Vanc and zosyn ID consulted for ATB coverage IR unable to drain abscess 05/23 Continue vancomycin and Zosyn ID has been consulted for antibiotic coverage-and continue with Diflucan per IDs recommendation IR unable to drain abscess. 05/24 Continue IV vanco and diflucan, plan for 2 more days of IV abx and switch to oral. ID and Onc following, continue monitoring. (2) GERD (gastroesophageal reflux disease) Current Visit: No Status: Acute Assessment and Plan: Continue PPI (3) Rectal bleeding Current Visit: Yes Status: Acute Assessment and Plan: Due to the extension of rectal tumor and patient on Pradaxa for DVT. General Surgery was consulted in ED and patient declined a recommended diverting colostopy and pelvic drainage. Treatment for bleeding will be limited, but holding Pradaxa would be most imperative but places her at high risk of another DVT or other VTE. - Hold Pradaxa - Consult Vascular Surgery for potential placement of IV filter - Cycle H&H, monitor vital signs closely - Oncology consulted, recommendations appreciated. 05/19 We will continue to hold Pradaxa Vascular surgery has been consulted and IV filter has been placed Monitor H&H currently appears stable Oncology has been consulted and appreciate recommendations 05/20 Hemoglobin is 9 today she did have one bloody stool this a.m. continue to monitor H&H and transfuse as needed Into the hold Pradaxa Patient has IVC filter placed Oncology has been consulted and appreciate recommendations SCDs 05/21 HEENT: 8.8 today had one dark bloody stool this a.m. continue to monitor H&H and transfuse as needed Continuehold Pradaxa Patient has IVC filter placed Oncology has been consulted and appreciate recommendations SCDs 05/22 no active bleeding noted Hold pradaxa IVC filter placed SCD 05/23 Patient had bright red blood this morning with bowel movement Hemoglobin down to 8.5 Continue to hold Pradaxa IVC filter in place We will give Colace-stool softener to help decrease straining 05/24 No a surgical candidate. Continue monitoring H/H. (4) Anemia Current Visit: Yes Status: Acute Assessment and Plan: At baseline. Due to iron deficiency and also anemia of chronic disease. Repeat H&H as patient was having significant bleed earlier. 05/19 Monitor for bleeding-currently H&H is stable continue to monitor closely 05/20 Hemoglobin is 9 today she did have one bloody stool today continue to monitor H&H and transfuse as needed 05/21 Hemoglobin stable at 8.8 continues to have bloody stools monitor H&H and t ransfuse as needed 05/22 Hemoglobin continues to be stable 8.8 has had some dark bloody stools 05/23 Hemoglobin 8.5-he had bright red bloody stool this morning we will continue to monitor and transfuse as needed. 05/24 H/H stable. (5) Rectovaginal fistula Current Visit: Yes Status: Acute Assessment and Plan: Accu surgery was consulted recommending diverging colostomy and pelvic drainage to treat rectovaginal fistula and pelvic abscess however patient has declined at this time We will consult IR concerning drainage of abscess 05/22 Acute surgery was consulted recommending diverging colostomy and pelvic drainage to treat rectovaginal fistula and pelvic abscess however patient has declined at this time IR consulted - unable to drain abscess or place drain in fistula - IR will speak with patient concerning options consult ID for ATB coverage 05/23 Acute surgery was consulted recommending diverging colostomy and pelvic drainage to treat rectovaginal fistula and pelvic abscess however patient has declined at this time IR consulted - unable to drain abscess or place drain in fistula - concerned about new fistula forming after placement of drain consult ID for ATB coverage -continue with vancomycin-as well as Diflucan per recommendations. 05/24 Not surgical candidate. Continue current treatment. (6) Hx of deep venous thrombosis Current Visit: Yes Status: Acute Assessment and Plan: On Pradaxa, but will be held due to BRBPR. Vascular Surgery consulted, patient may benefit from IVC filter since she is having bleeding with Pradaxa now. Foot SCD 05/22 IVC filter placed per vascular cont foot pumps oncology consulted and appreciate recommendations 05/23 Patient was on Pradaxa however this has been discontinued due to bleeding IVC filter has been placed Continue with foot pumps 05/24 IVC placed. No Ac due to GI bleeding. DVT Prophylaxis: SCDs. - Time Spent with Patient Total time spent is greater than 50% in coordination of care (as documented) at patient's floor/unit and/or counseling patient: Greater than 35 minutes Plan of Care Discussed with: patient Internal Medicine: Result - Labs CBC & Chem 7: 05/24/19 04:40 05/24/19 04:40 Labs: Short CBC 05/24/19 Range/Units 04:40 WBC 5.5 (4.3-11.1) K/mcL Hgb 8.3 L (11.5-15.4) g/dL Hct 27.9 L (35.3-44.9) % Plt Count 260 (140-400) K/mcL Neutrophils # 4.6 (1.6-8.9) K/mcL BMP 05/24/19 04:40 Sodium 140 Potassium 3.1 L Chloride 106 Carbon Dioxide 29 BUN 7 Creatinine 0.39 L Glucose 90 Calcium 7.7 L - ABG Interpretation ABG results: PT/INR, D-dimer PT 12.3 Seconds (9.4-12.1) H 05/22/19 03:27 Consult Discharge Plan - Plan Referrals: Jacey Ochoa [Primary Care Provider] - 05/25/19 8:00 am (2) GERD (gastroesophageal reflux disease) Qualifiers: Qualified Code(s): K21.9 - Gastro-esophageal reflux disease without esophagitis (4) Anemia Qualifiers: Anemia type: unspecified type Qualified Code(s): D64.9 - Anemia, unspecified
--- NOTE | 2019-05-24 12:43 | Electrocardiograph Report ---
[address] [place], [place] [address] Test Date: 2019-05-22 Pat Name: Kim Gupta Department: 113 Room: 3B37 Gender: F Airline Manager: : 1960 Requested By: Isaac Koo Order Number: [id number] Reading MD: Fabiola Manning Measurements Intervals [place] Rate: 81 P: 39 MT: 139 QRS: 30 QRSD: 95 T: 35 QT: 376 QTc: 414 Interpretive Statements SINUS RHYTHM Electronically Signed On 05-24-2019 12:41:40 EDT by Fabiola Manning
--- NOTE | 2019-05-24 13:41 | Palliative - Consult Note ---
Date of Encounter: 05/24/19 Time of Encounter: 10:50 - Assessment and Plan (1) Cancer associated pain Current Visit: Yes Status: Acute Assessment and plan: She has [place] and Oxycodone ordered for pain. Utilized [place] x2 last 24 hours. States this is helpful and has not required the Oxycodone. Has not required IV medication since day of admission. Continue and monitor (2) Intractable nausea and vomiting Current Visit: No Status: Acute Assessment and plan: Continue Marinol/Ondansetron at needed. Utilized x1 last 24 hours. Qualifiers: Qualified Code(s): R11.2 - Nausea with vomiting, unspecified (3) Goals of care, counseling/discussion Current Visit: Yes Status: Acute Assessment and plan: 60 min total time with patient - 45 min spent with patient with meeting, counseling and coordination of care. Patient has had conversation with Dr. Villegas regarding further options for cancer treatment and she is aware that cancer progressing and no further treatment can be offered. She desired to discuss hospice care which was discussed at length. She has and 4 children for support and care at home. Discussed goals of care in regards to resuscitation, and she did change code status to DNR-Comfort care. State form completed and signed by patient. Copies provided to family and placed in medical record. She had [facility] prior to admission, but insists that she wants [facility] to provide care after discharge. Patient does desire to continue treatment for abscess, and to complete her 7 days of IV atb. Tentative plan to go home on Wednesday. Referral called to [facility] - [place] and d/w social psychologist and Hospitalist Marcos Harmon. Will continue to follow. (4) Palliative care encounter Current Visit: Yes Status: Acute (5) Metastasis from rectal cancer Current Visit: No Status: Acute (6) Rectal bleeding Current Visit: Yes Status: Acute (7) Hx of deep venous thrombosis Current Visit: Yes Status: Acute Assessment and plan: S/p IVC filter Palliative-CN HPI - Data of Consult Requesting Physician: Jorge Huston MD Primary Care Provider: Jacey Ochoa - Consult Narrative History of present illness: Ms. Gupta is a 58 year old female with a history of metastatic rectal adenocarcinoma, presented to the ED for worsening rectal bleeding. She is a patient of Dr. Villegas at the [facility], diagnosed in fall. Patient had workup in ED, and imaging demonstrated rectovaginal fistula along - gas and fluid collection along the right aspect of the rectum, consistent with abscess. Patient had DVT this winter and has been on anticoagulation since - this was discontinued r/t the bleeding, and vascular consulted - IVC filter placed. Surgery was consulted regarding fistula and abscess, but patient declined any surgical intervention. She was informed of progression of cancer, and that chemotherapy was no longer beneficial for her. Last treatment was at the end of April. Palliative care consulted for goals of care discussion, and symptom management. Upon my visit, patient is awake and alert, Peyman, son Peyman zamora are at bedside. She denies any pain at present, and states she is feeling pretty well today. Has had intermittent nausea. Did have some rectal bleeding this am with BM. Vitals stable. CC: Jorge Huston MD - Time Spent with Patient Time: Total time spent is greater than 50% in coordination of care (as documented) at patient's floor/unit and/or counseling patient: Past Med Surg Social Fam HX - Past Medical History Medical history: arthritis, cancer, DVT, GERD Additional medical history: multiple sclerosis. stage 4 rectal cancer Psychiatric history: no psych history - Past Surgical History Surgical History: , cholecystectomy Additional surgical history: Left Foot - Social History Smoking Status: Never smoker Smokeless Tobacco Status: No Alcohol use: none Drug use: none - Family History Mother Living Status: Hx Family Cardiac Disorders: Yes Hx Family Respiratory Disorders: Yes Hx Family Cancer: Yes Medications and Allergies Tizanidine HCl [Zanaflex] 4 mg PO BID PRN #60 capsule 09/13/18 [Rx] Magnesium Oxide [Mag-Ox] 400 mg PO BID #60 tablet 10/13/18 [Rx] Loperamide [Imodium] 2 mg PO AD PRN #60 capsule 11/29/18 [Rx] Potassium Chloride [K-Tab ER] 20 meq PO BID #120 tablet.er 04/06/19 [Rx] Omeprazole [PriLOSEC] 20 mg PO DAILY #90 capsule. 04/20/19 [Rx] Celecoxib [Celebrex] 200 mg PO DAILY 05/01/19 [History] Diphenoxylate/Atropine [Lomotil 2.5 mg/0.025 mg] 2 tab PO TID PRN 05/01/19 [History] Lidocaine/Prilocaine CREAM [Emla] 1 appl TP AD 05/01/19 [History] Calcium Carbonate [Tums] 1,000 mg PO TID tab.chew 05/04/19 [Rx] HYDROcodone/Acet 5/325 mg [[place] 5-325 mg] 1 tab PO Q6H PRN 14 Days #120 tab 05/04/19 [Rx] Ondansetron [Zofran ODT] 8 mg SL TID PRN 30 Days #90 tab.rapdis 05/04/19 [Rx] Promethazine [Phenergan] 25 mg PO Q6HR PRN #30 tablet 05/04/19 [Rx] Gabapentin [Neurontin] 300 mg PO TID #90 capsule 05/11/19 [Rx] Allergy/AdvReac Type Severity Reaction Status Date / Time No Known Allergies Allergy Verified 05/01/19 09:47 - Constitutional Constitutional ROS PAL: decreased appetite, weight loss - EENT Additional comments: Denies - Cardiovascular Additional comments: Denies - Respiratory Additional comments: Denies - Gastrointestinal Gastrointestinal: abdominal pain, bloating, change in bowel habits, constipation, hematochezia, loose stools - Genitourinary Palliative ROS female: dysuria, urinary frequency - Musculoskeletal Musculoskeletal ROS IM: muscle weakness - Integumentary Additional comments: Denies - Neurological Additional comments: Denies - Psychiatric Additional comments: Denies Palliative Care-Exam - Constitutional Vitals: Temp Pulse Resp BP Pulse Ox 97.9 F 77 16 100/66 94 05/24/19 10:57 05/24/19 10:57 05/24/19 10:57 05/24/19 10:57 05/24/19 10:57 General appearance: Present: no acute distress - Head Head Exam: Present: normal inspection, normocephalic - Respiratory Respiratory exam: Present: decreased breath sounds, CTAB - Cardiovascular Cardiovascular exam: Present: RRR, +S1, +S2 - GI/Abdominal Exam GI/Abdominal exam: Present: distended, normal bowel sounds, soft - Extremities Exam Extremities exam: Present: normal capillary refill, normal inspection - Neurological Exam Neurological exam: Present: alert, oriented X3, strengths equal and symetr throughout - Psychiatric Psychiatric exam: Present: normal affect, normal mood - Skin Skin exam: Present: dry, pallor, warm Internal Medicine - CN: Reslt - Labs CBC & Chem 7: 05/24/19 04:40 05/24/19 04:40 Labs: Short CBC 05/24/19 Range/Units 04:40 WBC 5.5 (4.3-11.1) K/mcL Hgb 8.3 L (11.5-15.4) g/dL Hct 27.9 L (35.3-44.9) % Plt Count 260 (140-400) K/mcL Neutrophils # 4.6 (1.6-8.9) K/mcL BMP 05/24/19 04:40 Sodium 140 Potassium 3.1 L Chloride 106 Carbon Dioxide 29 BUN 7 Creatinine 0.39 L Glucose 90 Calcium 7.7 L - ABG Interpretation ABG results: PT/INR, D-dimer PT 12.3 Seconds (9.4-12.1) H 05/22/19 03:27 Consult Discharge Plan - Plan Referrals: Jacey Ochoa [Primary Care Provider] - 05/25/19 8:00 am Palliative Quality Palliative Quality: Screen for Code Status: Yes, Screen for Goals of Care: Yes, Screen for Pain: Yes, If Pain Regimen Started, Initiate Bowel Regimen: NA (Loose stools), Screen for Nausea/Vomitting: Yes Code Status: 05/18/19 16:27 Resuscitation Status: Active [RES] Routine Comment: Resuscitation Status: Full Code 05/24/19 11:18 DNR [Resuscitation Status: Active] [RES] Routine Comment: Resuscitation Status: DNR-Comfort Care
[2019-05-24] MEDS ORDERED: Potassium Chloride Elixir 20 MEQ/15 ML UDC PO ONE (15:17)
[2019-05-24] MEDS: Ondansetron 4 MG/2 ML VIAL IVP PRN (19:32)
[2019-05-25] MEDS: Piperacillin/Tazobactam 3.375 GM in 0.9 % Sodium Chloride Mini Bag 100 ML IVPB SCH ×3 (00:59→17:01)
[2019-05-25 05:14] LABS: Hematocrit 29.8 % (35.3-44.9); Hemoglobin 9.1 g/dL (11.5-15.4); Mean Corpuscular HGB Conc 30.5 g/dL (31.6-35.5); Mean Corpuscular Hemoglobin 27.4 pg (28.0-33.3); Mean Corpuscular Volume 89.8 fL (83.0-100.0); Mean Platelet Volume 8.9 fL (9.4-12.4); Platelet Count 292 K/mcL (140-400); Red Blood Count 3.32 M/mcL (3.82-4.97); Red Cell Distribution Width 19.5 % (11.5-14.5); White Blood Count 4.9 K/mcL (4.3-11.1)
[2019-05-25 05:19] LABS: BUN/Creatinine Ratio 18 (6-26); Blood Urea Nitrogen 7 mg/dL (6-20); Calcium 7.9 mg/dL (8.6-10.3); Carbon Dioxide 28 mEq/L (23-29); Chloride 106 mEq/L (98-107); Glucose 89 mg/dL (70-105); Osmolality,Calculated 287 (280-300); Potassium 3.6 mEq/L (3.5-5.1); Sodium 140 mEq/L (136-145); eGFR For African Americans > 60 (> 60); eGFR For Non-African Americans > 60 (> 60)
[2019-05-25] MEDS: Celecoxib 200 MG CAPSULE PO SCH (08:55)
[2019-05-25] MEDS: Magnesium Oxide 400 MG TABLET PO SCH ×2 (08:55→19:44)
[2019-05-25] MEDS: Gabapentin 300 MG CAPSULE PO SCH ×3 (08:56→19:44)
[2019-05-25] MEDS: Fluconazole 100 MG TABLET PO SCH (09:08)
--- NOTE | 2019-05-25 09:43 | Palliative Progress Note ---
Date of Encounter: 05/25/19 Time of Encounter: 09:20 - Assessment and plan (1) Cancer associated pain Current Visit: Yes Status: Acute Assessment and plan: Patient states pain well controlled. Has not utilized Oxycodone and only required one dose of [place] within the past 24 hours. Continue and monitor (2) Intractable nausea and vomiting Current Visit: No Status: Acute Assessment and plan: Some nausea last pm relieved with Ondansetron. She also used one dose of Promethazine within last 24 hours. States she feels that these medications are helpful. Continue and monitor Qualifiers: Qualified Code(s): R11.2 - Nausea with vomiting, unspecified (3) Goals of care, counseling/discussion Current Visit: Yes Status: Acute Assessment and plan: Plan continue to be she will receive 7 day total of IV atb therapy and transition to po. Likely discharge Wednesday home with [facility] per patient preference. Referral has been made and information faxed to them. Will continue to follow. (4) Palliative care encounter Current Visit: Yes Status: Acute (5) Metastasis from rectal cancer Current Visit: No Status: Acute (6) Rectal bleeding Current Visit: Yes Status: Acute (7) Hx of deep venous thrombosis Current Visit: Yes Status: Acute - Time Spent With Patient Total time spent is greater than 50% in coordination of care (as documented) at patient's floor/unit and/or counseling patient: - Subjective Interval history: Patient awake and alert, states she feels ok this am. Appears in no distress. She did have some nausea yest evening relieved with medication. Sipping on sprite at this time. Ate small amount of breakfast. She stated had BM this am with small amount of blood. Hgb stable at 9.1 Vitals stable. No family at bedside. - Constitutional Vitals: Abnormal lab results WBC 4.1 K/mcL (4.3-11.1) L 05/23/19 05:29 RBC 3.32 M/mcL (3.82-4.97) L 05/25/19 04:00 Hgb 9.1 g/dL (11.5-15.4) L 05/25/19 04:00 Hct 29.8 % (35.3-44.9) L 05/25/19 04:00 MCH 27.4 pg (28.0-33.3) L 05/25/19 04:00 MCHC 30.5 g/dL (31.6-35.5) L 05/25/19 04:00 RDW 19.5 % (11.5-14.5) H 05/25/19 04:00 MPV 8.9 fL (9.4-12.4) L 05/25/19 04:00 Lymphocytes # 0.2 K/mcL (0.6-4.6) L 05/24/19 04:40 Hypochromasia Present (Not Present) A 05/19/19 05:30 Anisocytosis 1+ (Not Present) A 05/19/19 05:30 PT 12.3 Seconds (9.4-12.1) H 05/22/19 03:27 Sodium 134 mEq/L (136-145) L 05/18/19 09:20 Potassium 3.1 mEq/L (3.5-5.1) L 05/24/19 04:40 Creatinine 0.40 mg/dL (0.60-1.20) L 05/25/19 04:00 Glucose 122 mg/dL (70-105) H 05/21/19 04:00 Calculated Osmolality 276 (280-300) L 05/18/19 09:20 Calcium 7.9 mg/dL (8.6-10.3) L 05/25/19 04:00 AST 11 Units/L (13-39) L 05/18/19 09:20 Alkaline Phosphatase 121 Units/L (34-104) H 05/18/19 09:20 Serum Total Protein 5.5 g/dL (6.4-8.9) L 05/18/19 09:20 Albumin 2.8 g/dL (3.5-5.7) L 05/18/19 09:20 Albumin/Globulin Ratio 1.0 (1.1-2.2) L 05/18/19 09:20 Lipase 8 Units/L (11-82) L 05/18/19 09:20 Urine Clarity Turbid (Clear) A 05/18/19 18:37 Ur Specific Orange > 1.030 (1.010-1.025) H 05/18/19 18:37 Urine Protein 30 mg/dL (Neg-Trace) H 05/18/19 18:37 Urine Blood Large (Negative) H 05/18/19 18:37 Ur Leukocyte Esterase Large (Negative) H 05/18/19 18:37 Urine Microscopic RBC 5-15 per hpf (0-3) H 05/18/19 18:37 Urine Microscopic WBC TNTC per hpf (0-3) H 05/18/19 18:37 Ur Squamous Epith Cells Many per lpf (None-Few) H 05/18/19 18:37 Vancomycin Trough 12 mcg/mL (5-10) H 05/22/19 16:08 General appearance: Present: no acute distress - Respiratory Respiratory exam: Present: decreased breath sounds, CTAB - Cardiovascular Cardiovascular exam: Present: RRR, +S1, +S2 - GI/Abdominal GI/Abdominal exam: Present: distended, normal bowel sounds, soft - Extremities Exam Extremities exam: Present: normal capillary refill, normal inspection - Neurological Exam Neurological exam: Present: alert, oriented X3, strengths equal and symetr throughout - Skin Skin exam: Present: dry, pallor, warm Palliative Quality Palliative Quality: Screen for Code Status: Yes, Screen for Goals of Care: Yes, Screen for Pain: Yes, If Pain Regimen Started, Initiate Bowel Regimen: NA (Loose stools), Screen for Nausea/Vomitting: Yes Code Status: 05/18/19 16:27 Resuscitation Status: Active [RES] Routine Comment: Resuscitation Status: Full Code 05/24/19 11:18 DNR [Resuscitation Status: Active] [RES] Routine Comment: Resuscitation Status: DNR-Comfort Care - Labs CBC & Chem 7: 05/25/19 04:00 05/25/19 04:00 Labs: Laboratory Results - last 24 hr 05/25/19 05/25/19 04:00 04:00 WBC 4.9 RBC 3.32 L Hgb 9.1 L Hct 29.8 L MCV 89.8 MCH 27.4 L MCHC 30.5 L RDW 19.5 H Plt Count 292 MPV 8.9 L Sodium 140 Potassium 3.6 Chloride 106 Carbon Dioxide 28 BUN 7 Creatinine 0.40 L Est GFR ( Amer) > 60 Est GFR (Non-Af Amer) > 60 BUN/Creatinine Ratio 18 Glucose 89 Calculated Osmolality 287 Calcium 7.9 L - ABG Interpretation ABG results: PT/INR, D-dimer PT 12.3 Seconds (9.4-12.1) H 05/22/19 03:27 Consult Discharge Plan - Plan Referrals: Jacey Ochoa [Primary Care Provider] - 05/25/19 8:00 am
--- NOTE | 2019-05-25 10:07 | Infectious Disease Progress No ---
ID Progress Note Date of Encounter: 05/25/19 Time of Encounter: 10:05 - Subjective Subjective: Patient seen and examined. No acute events noted overnight. Patient states she feels okay. Denies fevers, chills, or rigors. Denies chest pain, shortness of breath, or cough. Denies nausea, vomiting, or diarrhea. Denies abdominal pain or urinary complaints. Denies oral thrush or skin rashes. Reports some bloody stool this morning. States appetite is okay. Planning to discharge with hospice once IV antibiotics are completed, but would like to complete course of PO antibiotics/antifungals as planned. - Objective CBC & Chem 7: 05/26/19 00:18 05/26/19 00:18 - Line Documentation Line Documentation: Aport (Right upper chest, currently accessed, transparent dressing C/D/I. No erythema, warmth, tenderness, or drainage.) - Exam Vitals: Temp Pulse Resp BP Pulse Ox 97.6 F 70 16 106/71 97 05/25/19 06:55 05/25/19 06:55 05/25/19 06:55 05/25/19 06:55 05/25/19 06:55 Exam: Head: Atraumatic, normal inspection, normocephalic. Eye: EOMI, PERRLA, no scleral icterus noted. ENT: Mucous membranes moist. No odontogenic infection noted. Neck: Normal inspection, no meningismus. Respiratory: Clear to auscultation. No rales, respiratory distress, rhonchi, or wheezes noted. Cardiovascular: Regular rate and rhythm, S1 and S2 audible. No murmurs, rubs, or gallops. GI: Soft, nondistended, normal bowel sounds. Mild generalized tenderness noted. Extremities: No joint swelling, pedal edema, or tenderness noted. Back: Normal inspection. No vertebral tenderness noted. Neurological: Alert, oriented 3, no focal deficits. Psychiatric: normal affect, normal mood. Skin: Dry, intact, warm. Pale. No rashes. - Assessment and Plan (1) Pelvic abscess Current Visit: Yes Status: Acute CT of the pelvis without contrast showed gas and fluid collection on the right aspect of the rectum measuring about 2 x 1.3 cm consistent with abscess. Ad ditional fluid collection extends superiorly towards the right posterior lateral pelvic wall measuring about 3.3 x 2 point centimeters. Likely secondary to metastatic rectal adenocarcinoma and rectovaginal fistula. Blood cultures drawn 05/18/19 are negative 2 sets. Interventional radiology consulted. No plans for drainage at this time. Currently on oral fluconazole and IV Zosyn. SNOMED Code(s): 281607366 (2) Rectovaginal fistula Current Visit: Yes Status: Acute Likely due to rectal adenocarcinoma. Patient was offered the option of diverting colostomy, but she declined. Currently being managed conservatively. Planning to pursue hospice on discharge. SNOMED Code(s): 98288661 (3) Rectal bleeding Current Visit: Yes Status: Acute Likely secondary to her history of rectal adenocarcinoma. Hemoglobin stable at around 10. SNOMED Code(s): 42982305 (4) Anemia Current Visit: Yes Status: Acute Likely multifactorial: anemia of chronic disease plus rectal bleeding. Hemoglobin stable at around 10. Management per the primary team. Qualifiers: Anemia type: unspecified type Qualified Code(s): D64.9 - Anemia, unspecified SNOMED Code(s): 308322529 (5) GERD (gastroesophageal reflux disease) Current Visit: No Status: Acute Qualifiers: Qualified Code(s): K21.9 - Gastro-esophageal reflux disease without esophag itis SNOMED Code(s): 897673095 (6) Hx of deep venous thrombosis Current Visit: Yes Status: Acute SNOMED Code(s): 995081114 - Recommendations Recommendations: The patient has decided to change her CODE STATUS to DNR CC and pursue hospice on discharge. Goals of care and hospice management per the palliative care team. Continue fluconazole 400 mg by mouth daily. Continue Zosyn 3.375 g IV every 8 hours. Duration of treatment depends on the clinical picture, likely a total of 3 weeks. Recommended completing a 10 day course of IV Zosyn (or Cefepime 2 grams IV Q12H+ Flagyl 500mg PO TID) plus fluconazole 400mg PO Daily (through 05/27), then an additional 14 days of Augmentin 875mg PO BID plus fluconazole 400mg PO daily for an additional 14 days (through 06/10/19). Monitor renal function and dose adjust antibiotics. Consult Discharge Plan - Plan Referrals: Jacey Ochoa [Primary Care Provider] - 05/25/19 8:00 am - Attending Attestation I have personally performed a face to face evaluation on this patient. I have re viewed and agree with the care plan. 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 Consider switching the patient to combination of cefepime 1 g q12+ Flagy po 500mg tid +Diflucan 400 mg po daily for 10 days followed by oral Augmentin and Diflucan for 2 more weeks after that. Prognosis is very poor Patient going with hospice
--- NOTE | 2019-05-25 12:02 | Internal Med Progress Note ---
Hospitalist Progress Note - Encounter Date of Encounter: 05/25/19 Time of Encounter: 12:00 - Subjective Interval History: Ms. Gupta is a 58 year old female with history of stage IV rectal cancer and DVT on Pradaxa, rectovaginal fistula, presented to ED for bright red blood per rectum. Has been going on for several days but overnight and this morning has filled her diaper completely. She is having some accompanied 5 out of 10 pelvic pain as well. Blood is mixed in with stool. No clots appreciated. She denies any chest pain, SOB, n/v, diarrhea/constipation, dysuria, hematuria, fevers/chills. In the ED she was hemodynamicallly stable, hemoglobin 10.4 which is around baseline. A CT abdomen/pelvis with contrast showed a known rectovaginal fistula that is now more evident compared to prior. There is also a 3.3x2 cm foci of gas in posterior pelvic sidewall consistent with abscess, and an increase in size of a right lower lobe lung nodule. She received Vancomycin and Zosyn. Patient seen and examined in room. She reported improvement of rectal bleeding and diarrhea., Overnight, she has no abdominal pain, nausea, or vomiting. - Exam Vitals: Temp Pulse Resp BP Pulse Ox 97.7 F 71 17 109/75 96 05/25/19 10:53 05/25/19 10:53 05/25/19 10:53 05/25/19 10:53 05/25/19 10:53 Exam: General patient appears cachectic Skin: Free of rash and discoloration. Eyes: Sclera is white. There is no discharge from eyes. ENMT: Oral/pharyngeal mucosa is normal in appearance. There is no discharge from nose or ears. Respiratory: Normal breath sounds with no crackles and wheezes bilaterally. CV: Heart is regular with no gallop or murmur. GI: Abdomen is flat and soft with no palpable mass or visceromegaly. : There is no tenderness in patient's flanks bilaterally. Neuro exam: He has good strength in upper and lower extremities. He has normal eye movements. Psychiatric: He has normal affect. His thought process is appropriate to the situation. - Assessment and Plan (1) GERD (gastroesophageal reflux disease) Current Visit: No Status: Acute Assessment and Plan: Continue PPI. (2) Rectal bleeding Current Visit: Yes Status: Acute Assessment and Plan: Due to the extension of rectal tumor and patient on Pradaxa for DVT. General Surgery was consulted in ED and patient declined a recommended diverting colostopy and pelvic drainage. Treatment for bleeding will be limited, but holding Pradaxa would be most imperative but places her at high risk of another DVT or other VTE. - Hold Pradaxa - Consult Vascular Surgery for potential placement of IV filter - Cycle H&H, monitor vital signs closely - Oncology consulted, recommendations appreciated. 05/19 We will continue to hold Pradaxa Vascular surgery has been consulted and IV filter has been placed Monitor H&H currently appears stable Oncology has been consulted and appreciate recommendations 05/20 Hemoglobin is 9 today she did have one bloody stool this a.m. continue to monitor H&H and transfuse as needed Into the hold Pradaxa Patient has IVC filter placed Oncology has been consulted and appreciate recommendations SCDs 05/21 HEENT: 8.8 today had one dark bloody stool this a.m. continue to monitor H&H and transfuse as needed Continuehold Pradaxa Patient has IVC filter placed Oncology has been consulted and appreciate recommendations SCDs 05/22 no active bleeding noted Hold pradaxa IVC filter placed SCD 05/23 Patient had bright red blood this morning with bowel movement Hemoglobin down to 8.5 Continue to hold Pradaxa IVC filter in place We will give Colace-stool softener to help decrease straining 05/24 No a surgical candidate. Continue monitoring H/H. 05/25 Patient reported improved rectal bleeding. Hemoglobin 9.1 this morning. She also reported improved nausea, vomiting, and diarrhea. (3) Anemia Current Visit: Yes Status: Acute Assessment and Plan: At baseline. Due to iron deficiency and also anemia of chronic disease. Repeat H&H as patient was having significant bleed earlier. 05/19 Monitor for bleeding-currently H&H is stable continue to monitor closely 05/20 Hemoglobin is 9 today she did have one bloody stool today continue to monitor H&H and transfuse as needed 05/21 Hemoglobin stable at 8.8 continues to have bloody stools monitor H&H and transfuse as needed 05/22 Hemoglobin continues to be stable 8.8 has had some dark bloody stools 05/23 Hemoglobin 8.5-he had bright red bloody stool this morning we will continue to monitor and transfuse as needed. 05/24 H/H stable. (4) Rectovaginal fistula Current Visit: Yes Status: Acute Assessment and Plan: Accu surgery was consulted recommending diverging colostomy and pelvic drainage to treat rectovaginal fistula and pelvic abscess however patient has declined at this time We will consult IR concerning drainage of abscess 05/22 Acute surgery was consulted recommending diverging colostomy and pelvic drainage to treat rectovaginal fistula and pelvic abscess however patient has declined at this time IR consulted - unable to drain abscess or place drain in fistula - IR will speak with patient concerning options consult ID for ATB coverage 05/23 Acute surgery was consulted recommending diverging colostomy and pelvic drainage to treat rectovaginal fistula and pelvic abscess however patient has declined at this time IR consulted - unable to drain abscess or place drain in fistula - concerned about new fistula forming after placement of drain consult ID for ATB coverage -continue with vancomycin-as well as Diflucan per recommendations. 05/24 Not surgical candidate. Continue current treatment. (5) Pelvic abscess Current Visit: Yes Status: Acute Assessment and Plan: Patient does not meet sepsis criteria. Will need drained by IR - Patient had Pradaxa this morning before coming to ED. Will hold Pradaxa and consult IR tomorrow since she received anticoagulation today. Continue Vanc/Zosyn. 05/19 We will continue with vancomycin and Zosyn Continue to hold Pradaxa-we will consult IR for abscess drainage 05/20 cont with vanc and zosyn cont to hold pradaxa -IR consulted for abscess drainage 05/21 Continue vancomycin and Zosyn T the hold Pradaxa patient will be nothing by mouth after midnight for abscess drainage by IR in the a.m. 05/22 cont with Vanc and zosyn ID consulted for ATB coverage IR unable to drain abscess 05/23 Continue vancomycin and Zosyn ID has been consulted for antibiotic coverage-and continue with Diflucan per IDs recommendation IR unable to drain abscess. 05/24 Continue IV zosyn and diflucan, plan for 2 more days of IV abx and switch to oral. ID and Onc following, continue monitoring. 05/25 Continue IV antibiotics and antifungals. Plan to switch to oral antibiotics and discharged home with home hospice on Wednesday. ID and the oncology following, appreciate help. (6) Hx of deep venous thrombosis Current Visit: Yes Status: Acute Assessment and Plan: On Pradaxa, but will be held due to BRBPR. Vascular Surgery consulted, patient may benefit from IVC filter since she is having bleeding with Pradaxa now. Foot SCD 05/22 IVC filter placed per vascular cont foot pumps oncology consulted and appreciate recommendations 05/23 Patient was on Pradaxa however this has been discontinued due to bleeding IVC filter has been placed Continue with foot pumps 05/24 IVC placed. No Ac due to GI bleeding. - Time Spent with Patient Total time spent is greater than 50% in coordination of care (as documented) at patient's floor/unit and/or counseling patient: Greater than 35 minutes Plan of Care Discussed with: patient Internal Medicine: Result - Labs CBC & Chem 7: 05/25/19 04:00 05/25/19 04:00 Labs: Short CBC 05/25/19 Range/Units 04:00 WBC 4.9 (4.3-11.1) K/mcL Hgb 9.1 L (11.5-15.4) g/dL Hct 29.8 L (35.3-44.9) % Plt Count 292 (140-400) K/mcL BMP 05/25/19 04:00 Sodium 140 Potassium 3.6 Chloride 106 Carbon Dioxide 28 BUN 7 Creatinine 0.40 L Glucose 89 Calcium 7.9 L - ABG Interpretation ABG results: PT/INR, D-dimer PT 12.3 Seconds (9.4-12.1) H 05/22/19 03:27 Consult Discharge Plan - Plan Referrals: Jacey Ochoa [Primary Care Provider] - 05/25/19 8:00 am (1) GERD (gastroesophageal reflux disease) Qualifiers: Qualified Code(s): K21.9 - Gastro-esophageal reflux disease without esophagitis (3) Anemia Qualifiers: Anemia type: unspecified type Qualified Code(s): D64.9 - Anemia, unspecified
[2019-05-25] MEDS: *HR* HYDROcodone/Acet 5/325 mg TABLET PO PRN (13:14)
--- NOTE | 2019-05-25 13:17 | Invasive Diagnostic Lab Proc ---
Name: Kim Gupta Date of Study: 05/19/2019 Date: 1960 Ht: 160.0 in Medical Record#: [id number] Age: 58 Wt: 59 lb Gender: Female BSA: 1.61 Order #: [id number] BMI: 23.05 Physicians Performing MD: Maverick Olmos MD, FACS Referring MD: Jacey Ochoa CNP Referring MD: Kaiser Villegas MD Staff Name Position Time In Cornelius Hollins RT (R) Monitor Luis Grant RN Silverware Buffing Machine Operator Cornelius Hollins RT (R) Scrub Indications DVT, Unilateral Procedures Performed IVC FILTER PLACEMENT Pre-Procedure Checklist Informed consent is complete signed and on chart. H&P is on chart. ID band is on and ID verified with patient. Patient NPO for procedure The procedure was described for the patient and questions were answered. ECG is on chart. Plan of Care Patient will tolerate the procedure without complications. Adequate level of comfort will be maintained. Hemodynamics will remain stable Patient will recover from procedure without complications. Respiratory function will be maintained. Cardiac rhythm will remain stable. Patient temperature will be maintained. Patient and/or family have verbalized understanding of the procedure. Patient Education Chief Complaint/Reason for Test: IVC filter Developmental Category: Adult (18-64 years) Education Needs: Procedure Education Method: Verbal Information Taught: IVC filter Educational Evaluation: Able to repeat information Intravenous Access Time IV Size Location DC'd Fluid/Drip Rate Units RN Venous access port 0.9NaCl ml/hr Allergies No Known Allergies Vital Signs Time BP Systolic BP Diastolic HR O2 Sats ASA 08:37 AM 08:37 AM 08:35 AM 137 90 99 99 08:40 AM 135 90 94 100 08:45 AM 130 84 96 100 08:50 AM 129 88 97 100 08:55 AM 124 79 89 100 09:00 AM 125 87 89 100 08:52 AM Procedure Medications Time Medication Dose Units Method Route 08:37 AM Oxygen 2 L/min nasal cannula 08:37 AM Versed 1 mg Intravenous 08:38 AM Fentanyl 25 mcg Intravenous 08:43 AM Lidocaine 2% 10 ml Subcutaneous 08:44 AM Fentanyl 25 mcg Intravenous 08:47 AM Versed 1 mg Intravenous 08:47 AM Lidocaine 2% 10 ml Subcutaneous ASA Classification: CLASS II- Mild systemic disease (i.e. well-controlled diabetes, hypertension, asthma, cigarette smoking) Noemy Score Preprocedure Postprocedure Activity 1- Moves 2 extremities sustained head lift Activity Circulation 2- SBP +/= 20 points of pre-anesthetic level Circulation Consciousness 2- Awake and alert oriented x 3 Consciousness O2 Saturation 2- Able to maintain O2 satruation of 92% on room air O2 Saturation Respiratory 2- Able to deep breathe and cough well Respiratory Total Score 9 Total Score Contrast: Isovue 300- 150ml Contrast Amount: 12 ml Fluoro Dose: 36 mGy Procedure Log Time Note Entered By 08:28 AM Pt arrived to [facility] 1 at 08:28 [place]ed[place] 08:28 AM Robert Tapia RN Position: Monitor Time in: 08:28 cedwards 08:28 AM Luis Grant RN Position: Silverware Buffing Machine Operator Time in: 08:28 cedwards 08:28 AM Cornelius Hollins (R) Position: Scrub Time in: 08:28 cedwards 08:36 AM Physician arrived 08:36 cedwards 08:37 AM ASA Class CLASS II- Mild systemic disease (i.e. well-controlled diabetes, hypertension, asthma, cigarette smoking) cedwards 08:37 AM Meet and evita completed cedwards 08:37 AM Sign in performed according to hospital policy. cedwards 08:37 AM Procedure start 08:37 cedwards 08:37 AM 08:37 Oxygen at 2 L/min per nasal cannula by Luis Grant RN cedwards 08:37 AM Time: 08:37 Is patient comfortable and pain free?: Yes cedwards 08:37 AM Time: 08:37LOC: 5 = Fully awake and oriented or at pre-proc level cedwards 08:38 AM 08:37 Versed 1 mg Intravenous Given by Luis Grant RN cedwards 08:38 AM 08:38 Fentanyl 25 mcg Intravenous Given by Luis Grant RN c[place] 08:40 AM Time out perfomed ced[place] 08:43 AM 08:43 10 ml Lidocaine 2% to right groin Subcutaneous Given By Maverick Olmos MD, FACS cedwards 08:43 AM IV Supplies used: J loop Angio Cath. cedwards 08:43 AM Patient charges- Angio tray pack, Pulse Oximetry and ACIST tubing and transducer cedwards 08:44 AM Ultrasound, Sonosite, utilized to obtain vascular access cedwards 08:44 AM 08:44 Fentanyl 25 mcg Intravenous Given by Rudy, Luis RN cedwards 08:47 AM 08:47 Versed 1 mg Intravenous Given by Luis Grant RN ced[place] 08:47 AM 08:47 10 ml Lidocaine 2% to right groin Subcutaneous Given By Maverick Olmos MD, FACS ced[place] 08:52 AM Time: 08:37 Is patient comfortable and pain free?: Yes ced[place] 08:52 AM Time: 08:37LOC: 4 = Oriented but drowsy ced[place] 08:52 AM Access obtained in the right femoral vein by percutaneous puncture. 4 Fr. 10 cm Terumo [place] sheath placed in right femoral vein cedwards 08:54 AM Patient Charges- [employer] Celect IVC Filter SN/LOT# [id number],Tray Pack and Pulse Oximetry. cedwards 08:54 AM 4 [place] sheath exchanged out and IVC Filter sheath inserted Rt Femoral vein. cedwards 08:55 AM Inferiorvenacavagram performed. cedwards 08:56 AM 4ml of contrast injected cedwards 08:56 AM 4ml of contrast injected cedwards 09:01 AM IVC Filter inserted into the inferior vena cava cedwards 09:01 AM IVC Filter deployed into the inferior vena cava cedwards 09:01 AM Procedure completed at 09:01 cedwards 09:03 AM Sign Out completed: Radiation Dose 36.19 mGy Fluoro Time: 2.2 minutes. Isovue 300- 150ml contrast 12 ml given by Maverick Olmos MD, FACS. Complications: None. Confirmed administered medications:Yes Sedation minutes 24 cedwards 08:30 AM PVIStat 08:34 AM Vitals capture started with the following parameters, Patient=Adult, Interval=5 min, Initial Xbfowszd=112 mmHg, Deflation Rate=5 mmHg, Cuff placed on Left Arm 08:35 AM HR=99 bpm, KTGY=789/90 mmhg, SpO2=99 %, Resp=6 B/min 08:37 AM Recorded ECG: HR=96 Condition=Condition 1 08:40 AM HR=94 bpm, CCKU=893/90 mmhg, JdN5=309.0 %, Resp=13 B/min 08:45 AM HR=96 bpm, PGDE=723/84 mmhg, UvH5=086.0 %, Resp=14 B/min 08:50 AM HR=97 bpm, NXWK=429/88 mmhg, ElI2=461.0 %, Resp=18 B/min 08:51 AM Recorded ECG: HR=91 Condition=Condition 1 08:55 AM HR=89 bpm, BSIH=151/79 mmhg, KgF5=606.0 %, Resp=16 B/min 09:00 AM HR=89 bpm, XKOM=773/87 mmhg, RmF9=106.0 %, Resp=17 B/min 09:03 AM Isovue 300- 150ml,1 bottle(s) used. cedwards 09:03 AM Venous sheath pulled using manual compression and V+Pad for 15 minutes by Cornelius Hollins RT (R) cedwards 09:03 AM Estimated Blood Loss: minimal cedwards 09:03 AM Post Blood Pressure: 125/87 ced[place] 09:04 AM Post EKG: NSR ced[place] 09:04 AM Information taught: IVC filter ced[place] 09:04 AM Education needs: Procedure, Plan of Care, and Disease Process cedwards 09:04 AM Learning barriers: None cedwards 09:04 AM Education methods: Verbal ced[place] 09:04 AM Education evaluation: Able to repeat information ced[place] 09:04 AM Patient pain level 0/10 ced[place] 09:04 AM Site status No bleeding/hematoma - Rt Groin as reported by Cornelius Hollins RT (R) at 09:04 cedwards 09:04 AM Opsite applied cedwards 09:05 AM No family available ced[place] 09:05 AM Complications: None cedwards 09:05 AM Fluoro Time: 2.2 minutes cedwards 09:05 AM Isovue 300- 150ml contrast 12 ml given by Maverick Olmos MD, FACS [place] 09:05 AM Radiation Dose 36.19 mGy ced[place] 08:53 AM 4 ml of contrast hand injected ced[place] 09:07 AM Time: 08:52LOC: 4 = Oriented but drowsy c[place] 09:07 AM Time: 08:52 Is patient comfortable and pain free?: Yes c[place] 09:17 AM Report given to Regi MORGAN Pt taken to , Room # 37 09:08 ced[place] 09:18 AM Patient out of room 09:18 ced[place] Equipment Used Size Length Diameter Item Category J loop Angio tray pack Terumo [place] sheath Cook Celect IVC Filter Tray Pack V+Pad Post Procedure Information Blood Pressure: 125/87 mmHg Rhythm: NSR Report Given To: Demetrice Site Checks Time Location Status Staff Sheath In? Note 9:04:00 AM Rt Groin No bleeding/hematoma Cornelius Hollins RT (R) Pulses Time Site Pre Procedure Post Procedure Note Bilateral radial 2+ Bilateral DP & PT 1+ Updated by Gia Hernandez RN on 05/25/2019 1:11:15 PM electronically signed on 05/25/2019 1:11:49 PM with status of Final
[2019-05-25] MEDS: Ondansetron 4 MG/2 ML VIAL IVP PRN (19:43)
[2019-05-26] MEDS: Piperacillin/Tazobactam 3.375 GM in 0.9 % Sodium Chloride Mini Bag 100 ML IVPB SCH ×3 (00:08→15:24)
[2019-05-26 00:42] LABS: Hematocrit 28.1 % (35.3-44.9); Hemoglobin 8.7 g/dL (11.5-15.4); Mean Corpuscular Hemoglobin 27.8 pg (28.0-33.3); Mean Corpuscular Volume 89.8 fL (83.0-100.0); Mean Platelet Volume 8.7 fL (9.4-12.4); Platelet Count 272 K/mcL (140-400); Red Blood Count 3.13 M/mcL (3.82-4.97); Red Cell Distribution Width 19.8 % (11.5-14.5); White Blood Count 4.6 K/mcL (4.3-11.1)
[2019-05-26 00:55] LABS: BUN/Creatinine Ratio 21 (6-26); Blood Urea Nitrogen 8 mg/dL (6-20); Calcium 7.8 mg/dL (8.6-10.3); Carbon Dioxide 31 mEq/L (23-29); Chloride 106 mEq/L (98-107); Glucose 90 mg/dL (70-105); Osmolality,Calculated 288 (280-300); Potassium 3.3 mEq/L (3.5-5.1); Sodium 140 mEq/L (136-145); eGFR For African Americans > 60 (> 60); eGFR For Non-African Americans > 60 (> 60)
[2019-05-26] MEDS: Fluconazole 100 MG TABLET PO SCH (07:51)
[2019-05-26] MEDS: Magnesium Oxide 400 MG TABLET PO SCH ×2 (07:51→21:14)
[2019-05-26] MEDS: Gabapentin 300 MG CAPSULE PO SCH ×3 (07:52→21:14)
[2019-05-26] MEDS: Celecoxib 200 MG CAPSULE PO SCH (07:52)
[2019-05-26] MEDS: *HR* HYDROcodone/Acet 5/325 mg TABLET PO PRN (08:29)
--- NOTE | 2019-05-26 08:39 | Infectious Disease Progress No ---
ID Progress Note Date of Encounter: 05/26/19 Time of Encounter: 11:00 - Subjective Subjective: Patient seen and examined at the bedside. No acute events overnight. She endorses that she feels fine , denies any fevers chills, chest pain or rectal bleeding. Plan for the patient is to be discharged with hospice once the IV antibiotics are completed. Continues to be on IV Zosyn and PO fluconazole. - Objective CBC & Chem 7: 05/27/19 04:50 05/27/19 04:50 - Line Documentation Line Documentation: Aport (Right upper chest, currently accessed, transparent dressing C/D/I. No erythema, warmth, tenderness, or drainage.) - Exam Vitals: Temp Pulse Resp BP Pulse Ox 97.8 F 67 16 115/72 96 05/26/19 07:16 05/26/19 07:16 05/26/19 07:16 05/26/19 07:16 05/26/19 07:16 Exam: Gen.: Vitals noted. No acute distress. Alert, awake and oriented * 3 [address], [address], and time, cachectic resting comfortably in bed. Pleasant. HEENT: oropharynx clear, Normocephalic, atraumatic, MMM Neck: supple, no JVD, no lymphadenopathy, no carotid bruit. Cardiac: RRR, no murmur, +S1/S2, No BLE edema, PMI non-displaced Pulmonary: CTA bilaterally, no wheezes, rales or rhonchi, equal chest expansion, unlabored breathing Abdomen: soft, nontender, BS noted, no guarding, undistended. No organomegaly, no pulsatile masses, Skin: warm and dry, no visible lesions. Feels warm, clammy, no rashes, no lesions, no erythema MSK: ROM not assessed. no joint swelling noted, gait not assessed while in bed. Non tender calf or clubbing, no cyanosis/clubbing/ or edema Neuro: A&O, moves all extremities, no focal deficits, sensation intact Psych: Appropriate mood and behavior, normal speech. - Assessment and Plan (1) Pelvic abscess Status: Acute -Likely due to metastatic rectal adenocarcinoma -Patient met 1/ 4 SIRS criteria on admission to the ED , (HR: 108) -Patient's CT of the pelvis without contrast shows gas and no fluid collection along the right aspect of the rectum measuring about 2 x 1.3 cm consistent with abscess. Additional fluid collection extends superiorly towards the right posterior lateral pelvic wall measures about 3.3 x 2 cm -Patient is currently on IV Zosyn (to cover for gram-negative and anaerobes ) and PO fluconazole 400 mg once a day PLAN: -Once she compleyes her course of IV Abx , will recommend patient combination of cefepime 1 g every 12+ Flagyl by mouth 500 mg 3 TID+ Diflucan 400 mg po daily for 10 days followed by oral Augmentin and Diflucan for 2 more weeks after that. SNOMED Code(s): 669697733 (2) Rectovaginal fistula Status: Acute Likely due to rectal adenocarcinoma. Patient was offered the option of diverting colostomy, but she declined. Currently being managed conservatively. Planning to pursue hospice on discharge. SNOMED Code(s): 24723166 (3) Rectal bleeding Status: Acute Likely secondary to her history of rectal adenocarcinoma. Hemoglobin stable at around 10. SNOMED Code(s): 90185073 (4) GERD (gastroesophageal reflux disease) Status: Acute Patient has a history of GERD We will continue her home medications PPI Qualifiers: Qualified Code(s): K21.9 - Gastro-esophageal reflux disease without esophagitis SNOMED Code(s): 067696792 (5) Anemia Status: Acute Likely multifactorial: anemia of chronic disease plus rectal bleeding. Hemoglobin stable at around 10. Management per the primary team. Qualifiers: Anemia type: unspecified type Qualified Code(s): D64.9 - Anemia, unspecified SNOMED Code(s): 141539140 (6) Hx of deep venous thrombosis Status: Acute -Patient has a history of DVT likely due to her rectal adenocarcinoma -She used to be on Pradaxa at home for anticoagulation but given her most recent presentation of bright red blood per rectum her up for an access has been discontinued and patient has an IVC filter in place -Continue to monitor SNOMED Code(s): 707973731 Consult Discharge Plan - Plan Instructions: Anemia (GEN) Referrals: Jacey Ochoa [Primary Care Provider] - 05/25/19 8:00 am Prescriptions: Amoxicillin/Clavulanate [Augmentin] 875 mg PO BIDWM #28 tablet Fluconazole [Diflucan] 400 mg PO DAILY #14 tablet OxyCODONE Oral CONC [Oxycodone Oral Conc] 5 mg SL Q6HR PRN 5 Days #20 oral.syg PRN Reason: SEVERE PAIN - Attending Attestation I examined this patient and my medical decision-making was reviewed with the Resident Physician. I agree with the documented findings, disposition and treatment plan as described except to the extent set forth below. 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 Consider switching the patient to combination of cefepime 1 g q12+ Flagy po 500mg tid +Diflucan 400 mg po daily for 10 days followed by oral Augmentin and Diflucan for 2 more weeks after that. Prognosis is very poor Patient going with hospice
--- NOTE | 2019-05-26 09:56 | Event Note ---
Date of Encounter: 05/26/19 Time of Encounter: 09:00 Patient awake and alert, states feeling pretty well. Did have episode n/v last pm. Ate breakfast this am. + BM - states no blood with it this am. No family present. Patient finishing IV atb today, and anticipated to go home in am. She will be enrolled with [facility] on Wednesday per patient request. I spoke with their admission's coordinator to confirm. She will need hospice referral completed on discharge.
--- NOTE | 2019-05-26 10:39 | Internal Med Progress Note ---
Hospitalist Progress Note - Encounter Date of Encounter: 05/26/19 Time of Encounter: 10:37 - Subjective Interval History: Patient seen and examined in the room. She reported rectal bleeding has stopped. Diarrhea has improved. She does reported intermittent stomach upset in the afternoon, otherwise denies abdominal pain, nausea, or vomiting. - Exam Vitals: Temp Pulse Resp BP Pulse Ox 97.8 F 64 17 114/74 96 05/26/19 07:16 05/26/19 10:00 05/26/19 10:00 05/26/19 10:00 05/26/19 07:16 Exam: General patient appears cachectic Skin: Free of rash and discoloration. Eyes: Sclera is white. There is no discharge from eyes. ENMT: Oral/pharyngeal mucosa is normal in appearance. There is no discharge from nose or ears. Respiratory: Normal breath sounds with no crackles and wheezes bilaterally. CV: Heart is regular with no gallop or murmur. GI: Abdomen is flat and soft with no palpable mass or visceromegaly. : There is no tenderness in patient's flanks bilaterally. Neuro exam: He has good strength in upper and lower extremities. He has normal eye movements. Psychiatric: He has normal affect. His thought process is appropriate to the situation. - Assessment and Plan (1) GERD (gastroesophageal reflux disease) Current Visit: No Status: Acute Assessment and Plan: Continue PPI. (2) Rectal bleeding Current Visit: Yes Status: Acute Assessment and Plan: Due to the extension of rectal tumor and patient on Pradaxa for DVT. General Surgery was consulted in ED and patient declined a recommended diverting colostopy and pelvic drainage. Treatment for bleeding will be limited, but holding Pradaxa would be most imperative but places her at high risk of another DVT or other VTE. - Hold Pradaxa - Consult Vascular Surgery for potential placement of IV filter - Cycle H&H, monitor vital signs closely - Oncology consulted, recommendations appreciated. 05/19 We will continue to hold Pradaxa Vascular surgery has been consulted and IV filter has been placed Monitor H&H currently appears stable Oncology has been consulted and appreciate recommendations 05/20 Hemoglobin is 9 today she did have one bloody stool this a.m. continue to monitor H&H and transfuse as needed Into the hold Pradaxa Patient has IVC filter placed Oncology has been consulted and appreciate recommendations SCDs 05/21 HEENT: 8.8 today had one dark bloody stool this a.m. continue to monitor H&H and transfuse as needed Continuehold Pradaxa Patient has IVC filter placed Oncology has been consulted and appreciate recommendations SCDs 05/22 no active bleeding noted Hold pradaxa IVC filter placed SCD 05/23 Patient had bright red blood this morning with bowel movement Hemoglobin down to 8.5 Continue to hold Pradaxa IVC filter in place We will give Colace-stool softener to help decrease straining 05/24 No a surgical candidate. Continue monitoring H/H. 05/25 Patient reported improved rectal bleeding. Hemoglobin 9.1 this morning. She also reported improved nausea, vomiting, and diarrhea. 05/26 After bleeding stopped per patient, hemoglobin stable at 8.7 this morning. (3) Anemia Current Visit: Yes Status: Acute Assessment and Plan: At baseline. Due to iron deficiency and also anemia of chronic disease. Repeat H&H as patient was having significant bleed earlier. 05/19 Monitor for bleeding-currently H&H is stable continue to monitor closely 05/20 Hemoglobin is 9 today she did have one bloody stool today continue to monitor H&H and transfuse as needed 05/21 Hemoglobin stable at 8.8 continues to have bloody stools monitor H&H and transfuse as needed 05/22 Hemoglobin continues to be stable 8.8 has had some dark bloody stools 05/23 Hemoglobin 8.5-he had bright red bloody stool this morning we will continue to monitor and transfuse as needed. 05/24 H/H stable. (4) Rectovaginal fistula Current Visit: Yes Status: Acute Assessment and Plan: Accu surgery was consulted recommending diverging colostomy and pelvic drainage to treat rectovaginal fistula and pelvic abscess however patient has declined at this time We will consult IR concerning drainage of abscess 05/22 Acute surgery was consulted recommending diverging colostomy and pelvic drainage to treat rectovaginal fistula and pelvic abscess however patient has declined at this time IR consulted - unable to drain abscess or place drain in fistula - IR will speak with patient concerning options consult ID for ATB coverage 05/23 Acute surgery was consulted recommending diverging colostomy and pelvic drainage to treat rectovaginal fistula and pelvic abscess however patient has declined at this time IR consulted - unable to drain abscess or place drain in fistula - concerned about new fistula forming after placement of drain consult ID for ATB coverage -continue with vancomycin-as well as Diflucan per recommendations. 05/24 Not surgical candidate. Continue current treatment. (5) Pelvic abscess Current Visit: Yes Status: Acute Assessment and Plan: Patient does not meet sepsis criteria. Will need drained by IR - Patient had Pradaxa this morning before coming to ED. Will hold Pradaxa and consult IR tomorrow since she received anticoagulation today. Continue Vanc/Zosyn. 05/19 We will continue with vancomycin and Zosyn Continue to hold Pradaxa-we will consult IR for abscess drainage 05/20 cont with vanc and zosyn cont to hold pradaxa -IR consulted for abscess drainage 05/21 Continue vancomycin and Zosyn T the hold Pradaxa patient will be nothing by mouth after midnight for abscess drainage by IR in the a.m. 05/22 cont with Vanc and zosyn ID consulted for ATB coverage IR unable to drain abscess 05/23 Continue vancomycin and Zosyn ID has been consulted for antibiotic coverage-and continue with Diflucan per IDs recommendation IR unable to drain abscess. 05/24 Continue IV zosyn and diflucan, plan for 2 more days of IV abx and switch to oral. ID and Onc following, continue monitoring. 05/25 Continue IV antibiotics and antifungals. Plan to switch to oral antibiotics and discharged home with home hospice on Wednesday. ID and the oncology following, appreciate help. 05/26 Same as above. (6) Hx of deep venous thrombosis Current Visit: Yes Status: Acute Assessment and Plan: On Pradaxa, but will be held due to BRBPR. Vascular Surgery consulted, patient may benefit from IVC filter since she is having bleeding with Pradaxa now. Foot SCD 05/22 IVC filter placed per vascular cont foot pumps oncology consulted and appreciate recommendations 05/23 Patient was on Pradaxa however this has been discontinued due to bleeding IVC filter has been placed Continue with foot pumps 05/24 IVC placed. No Ac due to GI bleeding. DVT Prophylaxis: SCDs. - Time Spent with Patient Total time spent is greater than 50% in coordination of care (as documented) at patient's floor/unit and/or counseling patient: Greater than 35 minutes Plan of Care Discussed with: patient Internal Medicine: Result - Labs CBC & Chem 7: 05/26/19 00:18 05/26/19 00:18 Labs: Short CBC 05/26/19 Range/Units 00:18 WBC 4.6 (4.3-11.1) K/mcL Hgb 8.7 L (11.5-15.4) g/dL Hct 28.1 L (35.3-44.9) % Plt Count 272 (140-400) K/mcL BMP 05/26/19 00:18 Sodium 140 Potassium 3.3 L Chloride 106 Carbon Dioxide 31 H BUN 8 Creatinine 0.38 L Glucose 90 Calcium 7.8 L - ABG Interpretation ABG results: PT/INR, D-dimer PT 12.3 Seconds (9.4-12.1) H 05/22/19 03:27 Consult Discharge Plan - Plan Referrals: Jacey Ochoa [Primary Care Provider] - 05/25/19 8:00 am (1) GERD (gastroesophageal reflux disease) Qualifiers: Qualified Code(s): K21.9 - Gastro-esophageal reflux disease without esophagitis (3) Anemia Qualifiers: Anemia type: unspecified type Qualified Code(s): D64.9 - Anemia, unspecified
[2019-05-26] MEDS: Ondansetron 4 MG/2 ML VIAL IVP PRN (14:25)
[2019-05-27] MEDS: Piperacillin/Tazobactam 3.375 GM in 0.9 % Sodium Chloride Mini Bag 100 ML IVPB SCH ×2 (00:51→08:12)
[2019-05-27 05:11] LABS: Hematocrit 29.4 % (35.3-44.9); Hemoglobin 8.8 g/dL (11.5-15.4); Mean Corpuscular HGB Conc 29.9 g/dL (31.6-35.5); Mean Corpuscular Hemoglobin 27.2 pg (28.0-33.3); Mean Corpuscular Volume 90.7 fL (83.0-100.0); Mean Platelet Volume 8.4 fL (9.4-12.4); Platelet Count 271 K/mcL (140-400); Red Blood Count 3.24 M/mcL (3.82-4.97); Red Cell Distribution Width 19.9 % (11.5-14.5); White Blood Count 5.6 K/mcL (4.3-11.1)
[2019-05-27 05:23] LABS: BUN/Creatinine Ratio 12 (6-26); Blood Urea Nitrogen 5 mg/dL (6-20); Calcium 7.8 mg/dL (8.6-10.3); Carbon Dioxide 30 mEq/L (23-29); Chloride 110 mEq/L (98-107); Glucose 97 mg/dL (70-105); Osmolality,Calculated 279 (280-300); Potassium 3.7 mEq/L (3.5-5.1); Sodium 136 mEq/L (136-145); eGFR For African Americans > 60 (> 60); eGFR For Non-African Americans > 60 (> 60)
[2019-05-27 06:40] VITALS: BP 116/75
[2019-05-27] MEDS: Celecoxib 200 MG CAPSULE PO SCH (08:11)
[2019-05-27] MEDS: Gabapentin 300 MG CAPSULE PO SCH (08:11)
[2019-05-27] MEDS: *HR* HYDROcodone/Acet 5/325 mg TABLET PO PRN (08:11)
[2019-05-27] MEDS: Magnesium Oxide 400 MG TABLET PO SCH (08:11)
[2019-05-27] MEDS: Fluconazole 100 MG TABLET PO SCH (08:11)
--- NOTE | 2019-05-27 09:13 | Discharge Summary ---
- NOTES TO OUTPATIENT PROVIDER Notes to Outpatient Provider: f/u with PCP within 2 weeks. f/u with oncology within 2 weeks.. f/u with ID within 3 weeks. Date of Encounter: 05/27/19 Time of Encounter: 09:22 - Discharge Diagnosis (1) GERD (gastroesophageal reflux disease) Priority: Secondary Status: Acute Qualifiers: Qualified Code(s): K21.9 - Gastro-esophageal reflux disease without esophagitis (2) Rectal bleeding Priority: Primary Status: Acute (3) Anemia Priority: Primary Status: Acute Qualifiers: Anemia type: unspecified type Qualified Code(s): D64.9 - Anemia, unsp ecified (4) Rectovaginal fistula Priority: Primary Status: Acute (5) Pelvic abscess Priority: Primary Status: Acute (6) Hx of deep venous thrombosis Priority: Secondary Status: Acute Hospital course: Ms. Gupta is a 58 year old female with history of stage IV rectal cancer and DVT on Pradaxa, rectovaginal fistula, presented to ED for bright red blood per rectum. Has been going on for several days but overnight and this morning has filled her diaper completely. She is having some accompanied 5 out of 10 pelvic pain as well. Blood is mixed in with stool. No clots appreciated. In the ED she was hemodynamicallly stable, hemoglobin 10.4 which is around baseline. A CT abdomen/pelvis with contrast showed a known rectovaginal fistula that is now more evident compared to prior. There is also a 3.3x2 cm foci of gas in posterior pelvic sidewall consistent with abscess, and an increase in size of a right lower lobe lung nodule. She received Vancomycin and Zosyn. Because of persistent rectal bleeding, Pradaxa was discontinued, vascular surgery was consulted and an IVC filter was placed. Interventional radiology was consulted in attempt to drain the pelvic abscess, however, the risk likely outweighed the benefit and could cause chronic cutaneous fistula, seizure was canceled by interventional radiology after discussion with patient. Infectious disease was also consulted. IV antibiotics was tailored to Zosyn, fluconazole was also added. Rectal bleeding gradually improved. Blood culture has no growth. Patient has no fever, her WBC was normal. After 10 days of treatment, rectal bleeding has resolved, her abdominal pain has significantly improved. IV antibiotics has switched to oral Augmentin. Palliative care was consulted, home hospice was set up. Patient is discharged home today, she was instructed to continue taking oral Augmentin and Diflucan for 14 more days, she will follow-up with PCP, oncology, and infectious disease as scheduled. Discharge discussed with: patient Time spent discussing smoking cessation with patient: more than 10 minutes - Time Spent with Patient Total time spent providing and/or coordinating discharge services: Time spent: Greater than 30 minutes - Discharge Medications Prescriptions: New Amoxicillin/Clavulanate [Augmentin] 875 mg PO BIDWM #28 tablet Fluconazole [Diflucan] 400 mg PO DAILY #14 tablet OxyCODONE Oral CONC [Oxycodone Oral Conc] 5 mg SL Q6HR PRN 5 Days #20 oral.syg PRN Reason: SEVERE PAIN Continued Tizanidine HCl [Zanaflex] 4 mg PO BID PRN #60 capsule PRN Reason: Spasms Magnesium Oxide [Mag-Ox] 400 mg PO BID #60 tablet Loperamide [Imodium] 2 mg PO AD PRN #60 capsule PRN Reason: Diarrhea Potassium Chloride [K-Tab ER] 20 meq PO BID #120 tablet.er Omeprazole [PriLOSEC] 20 mg PO DAILY #90 capsule. Diphenoxylate/Atropine [Lomotil 2.5 mg/0.025 mg] 2 tab PO TID PRN PRN Reason: Diarrhea Lidocaine/Prilocaine CREAM [Emla] 1 appl TP AD Promethazine [Phenergan] 25 mg PO Q6HR PRN #30 tablet PRN Reason: Nausea And Vomiting HYDROcodone/Acet 5/325 mg [[place] 5-325 mg] 1 tab PO Q6H PRN 14 Days #120 tab PRN Reason: Pain Calcium Carbonate [Tums] 1,000 mg PO TID tab.chew Ondansetron [Zofran ODT] 8 mg SL TID PRN 30 Days #90 tab.rapdis PRN Reason: Vomiting Gabapentin [Neurontin] 300 mg PO TID #90 capsule Discontinued Celecoxib [Celebrex] 200 mg PO DAILY Home Medications: Tizanidine HCl [Zanaflex] 4 mg PO BID PRN #60 capsule 09/13/18 [Rx] Magnesium Oxide [Mag-Ox] 400 mg PO BID #60 tablet 10/13/18 [Rx] Loperamide [Imodium] 2 mg PO AD PRN #60 capsule 11/29/18 [Rx] Potassium Chloride [K-Tab ER] 20 meq PO BID #120 tablet.er 04/06/19 [Rx] Omeprazole [PriLOSEC] 20 mg PO DAILY #90 capsule. 04/20/19 [Rx] Diphenoxylate/Atropine [Lomotil 2.5 mg/0.025 mg] 2 tab PO TID PRN 05/01/19 [History] Lidocaine/Prilocaine CREAM [Emla] 1 appl TP AD 05/01/19 [History] Calcium Carbonate [Tums] 1,000 mg PO TID tab.chew 05/04/19 [Rx] HYDROcodone/Acet 5/325 mg [[place] 5-325 mg] 1 tab PO Q6H PRN 14 Days #120 tab 05/04/19 [Rx] Ondansetron [Zofran ODT] 8 mg SL TID PRN 30 Days #90 tab.rapdis 05/04/19 [Rx] Promethazine [Phenergan] 25 mg PO Q6HR PRN #30 tablet 05/04/19 [Rx] Gabapentin [Neurontin] 300 mg PO TID #90 capsule 05/11/19 [Rx] Amoxicillin/Clavulanate [Augmentin] 875 mg PO BIDWM #28 tablet 05/27/19 [Rx] Fluconazole [Diflucan] 400 mg PO DAILY #14 tablet 05/27/19 [Rx] OxyCODONE Oral CONC [Oxycodone Oral Conc] 5 mg SL Q6HR PRN 5 Days #20 oral.syg 05/27/19 [Rx] Allergies/Adverse Reactions: Allergy/AdvReac Type Severity Reaction Status Date / Time No Known Allergies Allergy Verified 05/01/19 09:47 Date of admission: 05/19/19 15:47 Primary care physician: Jacey Ochoa Consults: 05/18/19 11:18 Consult to Oncology [CONS] Stat Consulting Provider: Oncology [facility] [place] Reason for Consult: increasing metastasis in lungs, LAD, rectovaginal fistula, abscess known to Dr Villegas Call Completed: Yes Consult to Surgery [CONS] Stat Consulting Provider: Acute Care Surgery Reason for Consult: abscess, rectovaginal fistul Call Completed: Yes 05/18/19 16:26 Consult to Vascular Surgery [CONS] Routine Consulting Provider: Vascular Surgery [place] Reason for Consult: possible IVC filter placement. Call Completed: Yes 05/19/19 15:57 consult to director of payroll [Consult to Nutrition] [CONS] Routine Comment: Consulting Provider: NUTRITION Reason for Dietary Consult: PO Supplementation 05/19/19 16:22 Consult to Interventional Radiology [CONS] Routine Consulting Provider: Radiology Interventional [facility] Reason for Consult: right posterior pelvic sidewall measures about 3.3 x 2 cm consistent with abscess. Drainage Time Notified: 16:25 Call Completed: No 05/22/19 09:22 Consult to Infectious Diseases [CONS] Routine Consulting Provider: Infectious Disease [facility] Reason for Consult: rectovaginal fistula with abscess, on Vanc and zosyn Time Notified: 09:24 Call Completed: Yes 05/23/19 15:07 Consult to Palliative Care [CONS] Routine Comment: Hospice referral for discharge Consulting Provider: Palliative Care [place] Reason for Consult: metastatic rectal cacner agrees Time Notified: 15:09 Call Completed: Yes Anticipated date of discharge: 05/27/19 - Constitutional Vitals: Temp Pulse Resp BP Pulse Ox 97.7 F 71 16 116/75 97 05/27/19 06:39 05/27/19 06:39 05/27/19 06:39 05/27/19 06:39 05/27/19 06:39 General appearance: Present: A&O X 3, no acute distress, answers questions appropriately Exam: General patient appears cachectic Skin: Free of rash and discoloration. Eyes: Sclera is white. There is no discharge from eyes. ENMT: Oral/pharyngeal mucosa is normal in appearance. There is no discharge from nose or ears. Respiratory: Normal breath sounds with no crackles and wheezes bilaterally. CV: Heart is regular with no gallop or murmur. GI: Abdomen is flat and soft with no palpable mass or visceromegaly. : There is no tenderness in patient's flanks bilaterally. Neuro exam: He has good strength in upper and lower extremities. He has normal eye movements. Psychiatric: He has normal affect. His thought process is appropriate to the situation. - Patient Status Disposition: Hospice - Home Condition: Fair Functional capacity at discharge: independent ambulation Overall status at discharge: patient is not back to baseline - Discharge Instructions Follow Up With: Jacey Ochoa [Primary Care Provider] - 05/25/19 8:00 am - Diet and Activity Activity: increase activity as tolerated Diet: advance to your usual diet
--- NOTE | 2019-05-27 10:17 | Physician Discharge Referral ---
Home Health/Hosp Referral Info Transfer to: Home Health Provider in Charge Post Discharge: PCP - Diagnosis (1) GERD (gastroesophageal reflux disease) Priority: Secondary Status: Acute (2) Rectal bleeding Priority: Primary Status: Acute (3) Anemia Priority: Primary Status: Acute (4) Rectovaginal fistula Priority: Primary Status: Acute (5) Pelvic abscess Priority: Primary Status: Acute (6) Hx of deep venous thrombosis Priority: Secondary Status: Acute - Respiratory Orders Smoking Cessation: Smoking cessation has been advised. For more information, call the [place] [employer] Quit Line at 5-769-YAXB-NOW. - Services Needed Following services are medically necessary services: Nursing, Home Health Aide Home Care Orders: Home hospice. - Transfer Medications Prescriptions: Amoxicillin/Clavulanate [Augmentin] 875 mg PO BIDWM #28 tablet Fluconazole [Diflucan] 400 mg PO DAILY #14 tablet OxyCODONE Oral CONC [Oxycodone Oral Conc] 5 mg SL Q6HR PRN 5 Days #20 oral.syg PRN Reason: SEVERE PAIN Home Medications: Tizanidine HCl [Zanaflex] 4 mg PO BID PRN #60 capsule 09/13/18 [Rx] Magnesium Oxide [Mag-Ox] 400 mg PO BID #60 tablet 10/13/18 [Rx] Loperamide [Imodium] 2 mg PO AD PRN #60 capsule 11/29/18 [Rx] Potassium Chloride [K-Tab ER] 20 meq PO BID #120 tablet.er 04/06/19 [Rx] Omeprazole [PriLOSEC] 20 mg PO DAILY #90 capsule. 04/20/19 [Rx] Diphenoxylate/Atropine [Lomotil 2.5 mg/0.025 mg] 2 tab PO TID PRN 05/01/19 [History] Lidocaine/Prilocaine CREAM [Emla] 1 appl TP AD 05/01/19 [History] Calcium Carbonate [Tums] 1,000 mg PO TID tab.chew 05/04/19 [Rx] HYDROcodone/Acet 5/325 mg [[place] 5-325 mg] 1 tab PO Q6H PRN 14 Days #120 tab 05/04/19 [Rx] Ondansetron [Zofran ODT] 8 mg SL TID PRN 30 Days #90 tab.rapdis 05/04/19 [Rx] Promethazine [Phenergan] 25 mg PO Q6HR PRN #30 tablet 05/04/19 [Rx] Gabapentin [Neurontin] 300 mg PO TID #90 capsule 05/11/19 [Rx] Amoxicillin/Clavulanate [Augmentin] 875 mg PO BIDWM #28 tablet 05/27/19 [Rx] Fluconazole [Diflucan] 400 mg PO DAILY #14 tablet 05/27/19 [Rx] OxyCODONE Oral CONC [Oxycodone Oral Conc] 5 mg SL Q6HR PRN 5 Days #20 oral.syg 05/27/19 [Rx] Allergies/Adverse Reactions: Allergy/AdvReac Type Severity Reaction Status Date / Time No Known Allergies Allergy Verified 05/01/19 09:47 Certification: Further, I certify that my clinical findings support that this patient is homebound (i.e. absences from home require considerable and taxing effort and are for medical reasons or cheondoism services or infrequently or short duration when for other reasons) because: Homebound Reason: Patient requires assistance of a person or device to safely leave home Attestation: My signature below is to certify that this patient is under my care and that I, or nurse practitioner, or a physician's engineer assistant working with me, has a [id number] encounter with this patient.
== END 2019-05-27 12:09 | disposition hospice, home (50) | DRG 356 ==
LOC: 3BNU 08:26 → EMEROOARM 08:26 → 3BNU 12:15
PROVIDERS: ADMIT Student in an Organized Health Care Education/Training Program; ATTEND Student in an Organized Health Care Education/Training Program
PROC: IRDRAIN (2019-05-22 12:00)